=== PATIENT | male | born 1985 | race Caucasian/White ===

== ENCOUNTER 2016-04-26 23:51 | Emergency (ER) | payer MEDICAID ==
[2016-04-27 00:11] VITALS: BP 149/99
[2016-04-27] MEDS ORDERED: HYDROmorphone 1 MG/ML Syringe IM ONE (00:31)
--- NOTE | 2016-04-27 00:37 | EDM.PDOC ---
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 He was doing well but his last cat scan showed that the tumor had reoccurred and was back to the size that was originally resected. He is set to go back to [place] the to get set for radition therapy. He is experiencing fairly severe frontal headaches and nausea. He has phenergan and zoforan to use for the nausea. His primary care physian is Dr Tse. Timing/Duration: Reports: hour(s):, getting worse Location: Reports: frontal Quality: Reports: pounding Associated Symptoms: Reports: other (pt feels like there is alot of pressure in the head. ) - Related Data Allergies/ADRs: Allergies Allergy/AdvReac Type Severity Reaction Status Date / Time oxycodone AdvReac Nausea Verified 04/27/16 00:08 tramadol AdvReac Nausea Verified 04/27/16 00:08 Home Meds: Home Meds Ibuprofen [Motrin] 800 mg PO TID 01/30/16 [History] HYDROmorphone [Dilaudid] 2 mg PO Q6H PRN 03/04/16 [History] Ondansetron [Zofran ODT] 1 tab SL Q6H PRN 03/04/16 [History] Past Medical History HEENT History: Reports: Head Respiratory History: Reports: Pneumothorax Musculoskeletal History: Reports: Fracture Neurological History: Reports: Brain injury, Concussion, Head trauma, Migraines Other Neuro History: Craniopharyngioma resection 02/24/2016 - Infectious Disease History Infectious Disease History: Reports: Chicken pox - Past Surgical History Other Musculoskeletal Surgeries/Procedures:: left knee acl reconstuction Social & Family History - Family History Family Medical History: Noncontributory - Tobacco Use Smoking Status *Q: Never Smoker Second Hand Smoke Exposure: No - Caffeine Use Caffeine Use: Reports: Coffee, Energy drinks - Recreational Drug Use Recreational Drug Use: No ED ROS GENERAL - Review of Systems Review Of Systems: See Below Constitutional: Reports: no symptoms HEENT: Reports: No symptoms Respiratory: Reports: No Symptoms Cardiovascular: Reports: No symptoms Endocrine: Reports: no symptoms GI/Abdominal: Reports: Nausea, Other (pt states the zoforan works for him) : Reports: no symptoms Musculoskeletal: Reports: no symptoms Skin: Reports: no symptoms Neurological: Reports: Headache - Physical Exam Exam: See Below Text/Narrative:: pt has a severe headache. This is frontal in nature General Appearance: alert, anxious, moderate distress Ears: normal TMs Nose: normal inspection Throat/Mouth: Normal inspection Head Exam: atraumatic Neck: normal inspection Respiratory/Chest: no respiratory distress Cardiovascular: regular rate, rhythm Neuro Exam (Abbreviated): alert, oriented, normal cognition, other (pt is having a severe headache. ) Back Exam: normal inspection Extremities: normal inspection Psychiatric: anxious Course - Vital Signs Last Recorded V/S: Last Vital Signs Temp 36.6 C 04/27/16 00:10 Pulse 63 04/27/16 00:10 Resp 12 04/27/16 00:10 BP 149/99 H 04/27/16 00:10 Pulse Ox 99 04/27/16 00:10 - Orders/Labs/Meds Orders: Active Orders 24 hr Category Date Time Status HYDROmorphone [Dilaudid] Med 04/27/16 00:31 Once 1 mg IM ONETIME ONE Medication Orders Hydromorphone HCl (Dilaudid) 1 mg IM ONETIME ONE Stop: 04/27/16 00:32 Meds: Medications Generic Name Dose Route Start Last Admin Trade Name Pedro PRN Reason Stop Dose Admin Hydromorphone HCl 1 mg 04/27/16 00:31 Dilaudid IM 04/27/16 00:32 ONETIME ONE - Re-Assessments/Exams Free Text/Narrative Re-Assessment/Exam: 04/27/16 00:38 pt is out of his pain meds and is quite uncomfortable. He has an appt at [place] for May 09 to start radiation. Departure - Departure Time of Disposition: 00:39 Disposition: Home, Self-Care 01 Condition: fair Clinical Impression: Craniopharyngioma Forms: ED Department Discharge Care Plan Goals: appt with Dr Tse in the next 2 days., cont with zoforan and phenergan for nausea, dilaudid 2 mg 1 tab q8h as needed for severe headache # 8. Dr Tse should manage your pain when you are not at [place]. - My Orders Last 24 Hours: My Active Orders 04/27/16 00:31 HYDROmorphone [Dilaudid] 1 mg IM ONETIME ONE - Assessment/Plan Last 24 Hours: My Active Orders 04/27/16 00:31 HYDROmorphone [Dilaudid] 1 mg IM ONETIME ONE
== END 2016-04-27 01:02 | disposition home or self-care (01) ==
LOC: JP.ED 23:51
DX: D44.4 Neoplasm of uncertain behavior of craniopharyngeal duct (principal); G43.909 Migraine, unspecified, not intractable, without status migrainosus; Z88.5 Allergy status to narcotic agent; Z98.890 Other specified postprocedural states
CPT/HCPCS: 96372; 99284; J1170

== ENCOUNTER 2016-06-05 15:20 | Emergency (ER) | payer MEDICAID ==
[2016-06-05 15:49] VITALS: BP 141/56
[2016-06-05] MEDS ORDERED: HYDROmorphone 1 MG/ML Syringe IM ONE ×2 (15:51→16:46)
--- NOTE | 2016-06-05 16:10 | EDM.PDOC ---
[id number] 4d HEADACHE Time Seen by Provider: 06/05/16 15:45 Source: Reports: Patient History Limitations: Reports: No limitations - History of Present Illness INITIAL COMMENTS - FREE TEXT/NARRATIVE: 30-year-old male who is obtaining treatments for a craniopharyngioma is going to [place] tomorrow but has a headache that is not responding to his escape medications. No neurologic deficits. He usually comes in for an extra dose of Dilaudid IM for pain control. No nausea or vomiting. Location: Reports: frontal (Right eye), parietal, right Severity: Reports: moderate - Related Data Allergies/ADRs: Allergies Allergy/AdvReac Type Severity Reaction Status Date / Time oxycodone AdvReac Nausea Verified 06/05/16 15:34 tramadol AdvReac Nausea Verified 06/05/16 15:34 Home Meds: Home Meds NK [No Known Home Meds] 06/05/16 [History] Past Medical History HEENT History: Reports: Head Respiratory History: Reports: Pneumothorax Musculoskeletal History: Reports: Fracture Neurological History: Reports: Brain injury, Concussion, Head trauma, Migraines Other Neuro History: 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 Oncologic (Cancer) History: Reports: Brain - Infectious Disease History Infectious Disease History: Reports: Chicken pox - Past Surgical History Respiratory Surgical History: Reports: None Musculoskeletal Surgical History: Reports: Other (see below) Other Musculoskeletal Surgeries/Procedures:: left knee acl reconstuction Social & Family History - Family History Family Medical History: Noncontributory - Tobacco Use Smoking Status *Q: Never Smoker Second Hand Smoke Exposure: No - Caffeine Use Caffeine Use: Reports: Coffee, Energy drinks - Recreational Drug Use Recreational Drug Use: No ED ROS GENERAL - Review of Systems Review Of Systems: See Below Constitutional: Denies: fever, chills Respiratory: Denies: Shortness of Breath Cardiovascular: Denies: Chest pain GI/Abdominal: Denies: Nausea, Vomiting Skin: Reports: no symptoms Neurological: Reports: Other (No neurologic deficits but he has trouble sleeping ) - Physical Exam Exam: See Below Exam Limited By: No limitations General Appearance: alert, no apparent distress Eye Exam: bilateral eye: EOMI Neck: supple, non-tender Respiratory/Chest: no respiratory distress Neuro Exam (Abbreviated): alert, oriented, no motor/sensory deficits Psychiatric: normal affect, normal mood Skin Exam: Warm, Dry Course - Vital Signs Last Recorded V/S: Last Vital Signs Temp 98.3 F 06/05/16 15:47 Pulse 82 06/05/16 15:47 Resp 12 06/05/16 15:47 BP 141/56 H 06/05/16 15:47 Pulse Ox 99 06/05/16 15:47 - Orders/Labs/Meds Meds: Medications Discontinued Medications Generic Name Dose Route Start Last Admin Trade Name Pedro PRN Reason Stop Dose Admin Hydromorphone HCl 2 mg 06/05/16 15:51 06/05/16 15:57 Dilaudid IM 06/05/16 15:52 2 mg ONETIME ONE Administration Hydromorphone HCl 1 mg 06/05/16 16:46 06/05/16 16:58 Dilaudid IM 06/05/16 16:47 1 mg ONETIME ONE Administration - Re-Assessments/Exams Free Text/Narrative Re-Assessment/Exam: 06/05/16 16:10 Patient was given 2 mg of IM Dilaudid. 06/05/16 16:46 The patient had some moderate improvement with the Dilaudid, was given 1 additional milligram IM and discharged to followup tomorrow as planned. Departure - Departure Time of Disposition: 17:23 Disposition: Home, Self-Care 01 Condition: good Clinical Impression: Craniopharyngioma, Headache, chronic daily Instructions: Recurrent Migraine Headache Referrals: Geovanny Tse Sr, MD [Primary Care Provider] - Forms: ED Department Discharge Care Plan Goals: Continue your current medications and recheck as scheduled.
== END 2016-06-05 17:24 | disposition home or self-care (01) ==
LOC: JP.ED 15:20
DX: R51 Headache (principal); G89.29 Other chronic pain; D44.4 Neoplasm of uncertain behavior of craniopharyngeal duct; Z88.5 Allergy status to narcotic agent; Z88.8 Allergy status to other drugs, medicaments and biological substances; Z98.890 Other specified postprocedural states
CPT/HCPCS: 96372; 99284; J1170

== ENCOUNTER 2016-07-02 13:38 | Emergency (ER) | payer MEDICAID ==
[2016-07-02 13:57] VITALS: BP 110/66
[2016-07-02] MEDS ORDERED: HYDROmorphone 1 MG/ML Syringe IM ONE (14:30)
--- NOTE | 2016-07-02 14:53 | EDM.PDOC ---
ED HPI GENERAL MEDICAL PROBLEM - General Chief Complaint: Headache Stated Complaint: SEVERE HEADACHE,HISTORY OF TUMOR Time Seen by Provider: 07/02/16 14:15 Source of Information: Reports: Patient History Limitations: Reports: No Limitations - History of Present Illness INITIAL COMMENTS - FREE TEXT/NARRATIVE: This patient comes in for the headache complaint he has a history of a craniopharyngioma and had surgical resection back in February but this thing has grown back. He finished 6 weeks of radiation therapy yesterday. Normally for his headaches he takes oral Dilaudid however occasionally his headaches are severe and he can't control them with oral a lot of so he comes to the emergency department. In the past he's gotten 2 mg of Dilaudid IM and that has helped her he the headache today is a high in the right eye in a similar to his past headaches. He denies nausea today - Related Data Allergies Allergy/AdvReac Type Severity Reaction Status Date / Time oxycodone AdvReac Nausea Verified 06/05/16 15:34 tramadol AdvReac Nausea Verified 06/05/16 15:34 Home Meds: Home Meds HYDROmorphone HCl [Dilaudid] 1 tab PO Q4HR PRN 07/02/16 [History] Past Medical History HEENT History: Reports: Head Respiratory History: Reports: Pneumothorax Musculoskeletal History: Reports: Fracture Neurological History: Reports: Brain Injury, Concussion, Head Trauma, Migraines Other Neuro History: 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 Oncologic (Cancer) History: Reports: Brain - Infectious Disease History Infectious Disease History: Reports: Chicken Pox - Past Surgical History Respiratory Surgical History: Reports: None Musculoskeletal Surgical History: Reports: Other (See Below) Social & Family History - Family History Family Medical History: Noncontributory - Tobacco Use Smoking Status *Q: Never Smoker Second Hand Smoke Exposure: No - Caffeine Use Caffeine Use: Reports: Coffee, Energy Drinks - Recreational Drug Use Recreational Drug Use: No ED ROS GENERAL - Review of Systems Review Of Systems: ROS reveals no pertinent complaints other than HPI. - Physical Exam Exam: See Below Exam Limited By: No Limitations General Appearance: Alert, WD/WN, Mild Distress Eye Exam: Bilateral Eye: EOMI, PERRL Head Exam: Other (There's a well-healed scar to the right frontal parietal area) Neck: Full Range of Motion Neuro Exam (Abbreviated): Alert, Oriented, CN II-XII Intact, No Motor/Sensory Deficits Psychiatric: Normal Affect, Normal Mood Skin Exam: Intact Course - Vital Signs Last Recorded V/S: Last Vital Signs Temp 36.9 C 07/02/16 13:55 Pulse 77 07/02/16 13:55 Resp 14 07/02/16 13:55 BP 110/66 07/02/16 13:55 Pulse Ox 98 07/02/16 13:55 - Orders/Labs/Meds Meds: Medications Discontinued Medications Generic Name Dose Route Start Last Admin Trade Name Pedro PRN Reason Stop Dose Admin Hydromorphone HCl 2 mg 07/02/16 14:30 07/02/16 14:38 Dilaudid IM 07/02/16 14:31 2 mg ONETIME ONE Administration - Re-Assessments/Exams Free Text/Narrative Re-Assessment/Exam: 07/02/16 14:51 The patient received Dilaudid 2 mg IM. He's feels like he's ready for discharge now and painless relieved. Departure - Departure Time of Disposition: 14:52 Disposition: Home, Self-Care 01 Condition: fair Clinical Impression: Headache due to intracranial disease - Discharge Information Forms: ED Department Discharge Additional Instructions: Continue your usual medications. Return to the ER if needed.
== END 2016-07-02 15:09 | disposition home or self-care (01) ==
LOC: JP.ED 13:38
DX: G89.3 Neoplasm related pain (acute) (chronic) (principal); D44.4 Neoplasm of uncertain behavior of craniopharyngeal duct; R51 Headache; Z88.8 Allergy status to other drugs, medicaments and biological substances
CPT/HCPCS: 96372; 99284; J1170

== ENCOUNTER 2016-07-03 01:58 | Emergency (ER) | payer MEDICAID ==
--- NOTE | 2016-07-03 02:26 | EDM.PDOC ---
[id number] 4d SEVERE HEADACHE Time Seen by Provider: 07/03/16 02:22 Source of Information: Reports: Patient History Limitations: Reports: No Limitations - History of Present Illness INITIAL COMMENTS - FREE TEXT/NARRATIVE: Pt has a known brain tumor that was resecte and now is back . He has very severe headaches and uses dilaudid orally but there are times that he is not able to get it under control. He has also been quite nauseated. Onset: Gradual Duration: Week(s):, Waxing/Waning Location: Reports: Head Associated Symptoms: Reports: Nausea/Vomiting headache Pain Score (Numeric/FACES): 10 - Related Data Allergies Allergy/AdvReac Type Severity Reaction Status Date / Time oxycodone AdvReac Nausea Verified 07/03/16 02:22 tramadol AdvReac Nausea Verified 07/03/16 02:22 Home Meds: Home Meds HYDROmorphone HCl [Dilaudid] 8 mg PO Q8H PRN 07/02/16 [History] Ondansetron [Zofran ODT] 4 mg PO Q6H PRN 07/03/16 [History] Past Medical History HEENT History: Reports: Head Respiratory History: Reports: Pneumothorax Musculoskeletal History: Reports: Fracture Neurological History: Reports: Brain Injury, Concussion, Head Trauma, Migraines Other Neuro History: 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 Oncologic (Cancer) History: Reports: Brain - Infectious Disease History Infectious Disease History: Reports: Chicken Pox - Past Surgical History Respiratory Surgical History: Reports: None Musculoskeletal Surgical History: Reports: Other (See Below) Social & Family History - Family History Family Medical History: Noncontributory - Tobacco Use Smoking Status *Q: Never Smoker Second Hand Smoke Exposure: No - Caffeine Use Caffeine Use: Reports: Coffee, Energy Drinks - Recreational Drug Use Recreational Drug Use: No ED ROS GENERAL - Review of Systems Review Of Systems: See Below Constitutional: Reports: No Symptoms HEENT: Reports: No Symptoms Respiratory: Reports: No Symptoms Cardiovascular: Reports: No Symptoms Endocrine: Reports: No Symptoms GI/Abdominal: Reports: Vomiting : Reports: No Symptoms Musculoskeletal: Reports: No Symptoms Skin: Reports: No Symptoms Neurological: Reports: Other (pt has a severe headache. ) Psychiatric: Reports: Hallucinations Hematologic/Lymphatic: Reports: No Symptoms - Physical Exam Exam: See Below General Appearance: Severe Distress, Thin Ears: Normal TMs Nose: Normal Inspection Throat/Mouth: Normal Inspection Head Exam: Atraumatic Neck: Normal Inspection Respiratory/Chest: No Respiratory Distress Cardiovascular: Regular Rate, Rhythm Course - Vital Signs Last Recorded V/S: Last Vital Signs Temp 36.8 C 07/03/16 02:35 Pulse 58 L 07/03/16 02:35 Resp 20 07/03/16 02:35 BP 140/85 07/03/16 02:35 Pulse Ox 98 07/03/16 02:35 - Orders/Labs/Meds Meds: Medications Discontinued Medications Generic Name Dose Route Start Last Admin Trade Name Freq PRN Reason Stop Dose Admin Hydromorphone HCl 1 mg 07/03/16 02:37 07/03/16 02:48 Dilaudid IVPUSH 07/03/16 02:38 1 mg ONETIME ONE Administration Hydromorphone HCl 1 mg 07/03/16 02:48 07/03/16 03:23 Dilaudid IVPUSH 07/03/16 02:49 1 mg ONETIME ONE Administration Hydromorphone HCl 1 mg 07/03/16 03:55 07/03/16 04:05 Dilaudid IVPUSH 07/03/16 03:56 1 mg ONETIME ONE Administration Hydromorphone HCl 0.5 mg 07/03/16 04:42 07/03/16 04:56 Dilaudid IVPUSH 07/03/16 04:43 0.5 mg ONETIME ONE Administration Hydromorphone HCl 0.5 mg 07/03/16 05:40 07/03/16 05:51 Dilaudid IVPUSH 07/03/16 05:41 0.5 mg ONETIME ONE Administration Lorazepam 0.5 mg 07/03/16 04:40 07/03/16 04:49 Ativan IVPUSH 07/03/16 04:41 0.5 mg ONETIME ONE Administration Lorazepam 0.5 mg 07/03/16 05:39 07/03/16 05:51 Ativan IVPUSH 07/03/16 05:40 0.5 mg ONETIME ONE Administration Ondansetron HCl 4 mg 07/03/16 02:37 07/03/16 02:44 Zofran IVPUSH 07/03/16 02:38 4 mg ONETIME ONE Administration - Re-Assessments/Exams Free Text/Narrative Re-Assessment/Exam: 07/03/16 02:38 pt has just finished radiation at [facility] for a brain tumor. He does get headaches that the oral meds don,t control. . He started vomiting this pm. 07/03/16 02:57 He was given a total of 2 mg of dilaudid. 07/03/16 05:41 pt is hving trouble getting relief today. He is on such a high dose of oral dilaudid 8 mg every 4-6 hours. It would be good if we had some records and reccommendations from [facility] regarding meds to use for pain relief. 07/04/16 07:32 Departure - Departure Time of Disposition: 06:30 Disposition: Home, Self-Care 01 Condition: fair Clinical Impression: Headache, History of brain tumor - Discharge Information Instructions: Recurrent Migraine Headache Referrals: Geovanny Tse Sr, MD [Primary Care Provider] - Forms: ED Department Discharge Care Plan Goals: push fluids, cont same meds.
[2016-07-03 02:36] VITALS: BP 140/85
[2016-07-03] MEDS ORDERED: Ondansetron 4 MG/2 ML SDV IVPUSH ONE (02:37)
[2016-07-03] MEDS ORDERED: HYDROmorphone 1 MG/ML Syringe IVPUSH ONE ×3 (02:37→03:55)
[2016-07-03] MEDS ORDERED: LORazepam 2 MG/ML MDV IVPUSH ONE ×2 (04:40→05:39)
[2016-07-03] MEDS ORDERED: HYDROmorphone 0.5 MG/0.5 ML Syringe IVPUSH ONE ×2 (04:42→05:40)
== END 2016-07-03 06:30 | disposition home or self-care (01) ==
LOC: JP.ED 01:58
DX: G89.3 Neoplasm related pain (acute) (chronic) (principal); R51 Headache; D44.4 Neoplasm of uncertain behavior of craniopharyngeal duct; Z88.8 Allergy status to other drugs, medicaments and biological substances
CPT/HCPCS: 96374; 96375; 96376; 99284; J1170; J2060; J2405

== ENCOUNTER 2016-07-03 22:46 | Emergency (ER) | payer MEDICAID ==
[2016-07-03 23:05] VITALS: BP 128/72
[2016-07-03] MEDS ORDERED: HYDROmorphone 1 MG/ML Syringe IVPUSH ONE (23:19)
[2016-07-03] MEDS ORDERED: LORazepam 2 MG/ML MDV IVPUSH ONE (23:19)
--- NOTE | 2016-07-03 23:22 | EDM.PDOC ---
[id number] 4d HEADACHE Time Seen by Provider: 07/03/16 23:05 Source of Information: Reports: Patient History Limitations: Reports: No Limitations - History of Present Illness INITIAL COMMENTS - FREE TEXT/NARRATIVE: 31-year-old male who just finished 6 weeks of radiation therapy for her recurring brain tumor comes in for headache control. His headache actually broke and he was pain-free at 2 PM this afternoon but by 6:00 it was back to very intense and he was unable to take his oral Dilaudid because of nausea. Severity: Severe Associated Symptoms: Reports: Nausea/Vomiting. Denies: Confusion, Fever/Chills , Weakness Frontal Headache Pain Score (Numeric/FACES): 10 - Related Data Allergies Allergy/AdvReac Type Severity Reaction Status Date / Time oxycodone AdvReac Nausea Verified 07/03/16 02:22 tramadol AdvReac Nausea Verified 07/03/16 02:22 Home Meds: Home Meds HYDROmorphone HCl [Dilaudid] 8 mg PO Q8H PRN 07/02/16 [History] Ondansetron [Zofran ODT] 4 mg PO Q6H PRN 07/03/16 [History] Past Medical History HEENT History: Reports: Head Respiratory History: Reports: Pneumothorax Musculoskeletal History: Reports: Fracture Neurological History: Reports: Brain Injury, Concussion, Head Trauma, Migraines Other Neuro History: 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 Oncologic (Cancer) History: Reports: Brain Other Oncologic History: Finished 6 weeks of radiation therapy for brain cancer on monday07/01/16 - Infectious Disease History Infectious Disease History: Reports: Chicken Pox - Past Surgical History Respiratory Surgical History: Reports: None Musculoskeletal Surgical History: Reports: Other (See Below) Social & Family History - Family History Family Medical History: Noncontributory - Tobacco Use Smoking Status *Q: Never Smoker Second Hand Smoke Exposure: No - Caffeine Use Caffeine Use: Reports: Coffee, Energy Drinks - Recreational Drug Use Recreational Drug Use: No ED ROS GENERAL - Review of Systems Review Of Systems: See Below Constitutional: Denies: Fever, Chills Respiratory: Denies: Shortness of Breath Cardiovascular: Denies: Chest Pain GI/Abdominal: Reports: Nausea, Vomiting Skin: Reports: No Symptoms Psychiatric: Reports: No Symptoms - Physical Exam Exam: See Below Exam Limited By: No Limitations General Appearance: Alert, Mild Distress (Looks uncomfortable but not significantly distressed) Respiratory/Chest: No Respiratory Distress Neuro Exam (Abbreviated): Alert, Oriented, No Motor/Sensory Deficits Psychiatric: Normal Affect, Normal Mood Skin Exam: Warm, Dry Course - Vital Signs Last Recorded V/S: Last Vital Signs Temp 98.2 F 07/03/16 23:01 Pulse 63 07/03/16 23:01 Resp 17 07/03/16 23:01 BP 128/72 07/03/16 23:01 Pulse Ox 98 07/03/16 23:01 - Orders/Labs/Meds Orders: Active Orders 24 hr Category Date Time Status Saline Lock Insert [OM.PC] Routine Oth 07/03/16 23:20 Ordered Meds: Medications Discontinued Medications Generic Name Dose Route Start Last Admin Trade Name Freq PRN Reason Stop Dose Admin Hydromorphone HCl 2 mg 07/03/16 23:19 07/03/16 23:37 Dilaudid IVPUSH 07/03/16 23:20 2 mg ONETIME ONE Administration Hydromorphone HCl 2 mg 07/04/16 00:17 07/04/16 00:37 Dilaudid IVPUSH 07/04/16 00:18 2 mg ONETIME ONE Administration Ketorolac Tromethamine 30 mg 07/04/16 00:17 07/04/16 00:34 Toradol IVPUSH 07/04/16 00:18 30 mg ONETIME ONE Administration Lorazepam 1 mg 07/03/16 23:19 07/03/16 23:34 Ativan IVPUSH 07/03/16 23:20 1 mg ONETIME ONE Administration Sodium Chloride 10 ml 07/03/16 23:20 07/04/16 00:40 Saline Flush FLUSH 10 ml ASDIRECTED PRN Administration Keep Vein Open - Re-Assessments/Exams Free Text/Narrative Re-Assessment/Exam: 07/04/16 00:20 This patient is already taking 8 mg of Dilaudid orally every 6 hours but is unable to do so today because of the nausea and vomiting. Initially was given 2 mg of Dilaudid IV along with 1 mg of Ativan. 30 minutes later he said the headache was still an "8" but he looked very comfortable, switching channels on the TV and doing things on his telephone. I did give him 2 mg more of Dilaudid IV along with 30 of Toradol I told him I was uncomfortable giving him any more medications and he needs to resume his oral medications as prescribed. Departure - Departure Time of Disposition: 00:53 Disposition: Home, Self-Care 01 Condition: fair Clinical Impression: Headache due to intracranial disease - Discharge Information Instructions: Migraine Headache, [id number] Referrals: Geovanny Tse Sr, MD [Primary Care Provider] - Forms: ED Department Discharge Care Plan Goals: Rest tonight, resume your regular oral medications tomorrow as prescribed. - My Orders Last 24 Hours: My Active Orders 07/03/16 23:20 Saline Lock Insert [OM.PC] Routine - Assessment/Plan Last 24 Hours: My Active Orders 07/03/16 23:20 Saline Lock Insert [OM.PC] Routine
[2016-07-03] MEDS: Sodium Chloride 0.9% 10 ML Syringe FLUSH PRN (23:40)
[2016-07-04] MEDS ORDERED: HYDROmorphone 1 MG/ML Syringe IVPUSH ONE (00:17)
[2016-07-04] MEDS ORDERED: Ketorolac 30 MG/ML SDV IVPUSH ONE (00:17)
[2016-07-04] MEDS: Sodium Chloride 0.9% 10 ML Syringe FLUSH PRN (00:40)
== END 2016-07-04 00:55 | disposition home or self-care (01) ==
LOC: JP.ED 22:46
DX: R51 Headache (principal); Z85.841 Personal history of malignant neoplasm of brain; Z88.5 Allergy status to narcotic agent; Z88.8 Allergy status to other drugs, medicaments and biological substances
CPT/HCPCS: 96374; 96375; 96376; 99284; J1170; J1885; J2060; J7050

== ENCOUNTER 2016-07-11 14:37 | Emergency (ER) | payer MEDICAID ==
[2016-07-11] MEDS ORDERED: Sodium Chloride 0.9% 10 ML Syringe FLUSH PRN (16:38)
[2016-07-11] MEDS ORDERED: HYDROmorphone 1 MG/ML Syringe IVPUSH ONE ×2 (16:39→18:21)
[2016-07-11] MEDS ORDERED: Sodium Chloride 0.9% 1,000 ML IV ONE (16:39)
[2016-07-11] MEDS ORDERED: LORazepam 2 MG/ML MDV IVPUSH ONE (16:40)
[2016-07-11 18:12] VITALS: BP 111/76
[2016-07-11] MEDS ORDERED: Ketorolac 30 MG/ML SDV IVPUSH ONE (18:19)
[2016-07-11] MEDS ORDERED: diphenhydrAMINE 50 MG/ML SDV IVPUSH ONE (18:20)
[2016-07-11] MEDS ORDERED: Metoclopramide 10 MG/2 ML SDV IVPUSH ONE (18:20)
[2016-07-11] MEDS ORDERED: Dexamethasone 4 MG/ML SDV IVPUSH ONE (18:20)
--- NOTE | 2016-07-11 19:57 | EDM.PDOC ---
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 who presents to the ED today with acute on chronic headache that has not responded to his oral dilaudid at home. Patient denies any nausea/fever/neck pain. Patient reports photophobia. Onset: Today Duration: Hour(s): (4) Headache Pain Score (Numeric/FACES): 9 - Related Data Allergies Allergy/AdvReac Type Severity Reaction Status Date / Time oxycodone AdvReac Nausea Verified 07/11/16 16:12 tramadol AdvReac Nausea Verified 07/11/16 16:12 Home Meds: Home Meds HYDROmorphone HCl [Dilaudid] 8 mg PO Q8H PRN 07/02/16 [History] Ondansetron [Zofran ODT] 4 mg PO Q6H PRN 07/03/16 [History] Past Medical History HEENT History: Reports: Head Respiratory History: Reports: Pneumothorax Other Respiratory History: bilateral Musculoskeletal History: Reports: Fracture Neurological History: Reports: Brain Injury, Concussion, Head Trauma, Migraines Other Neuro History: 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 Immunologic History: Reports: Immunosuppression Other Immunologic History: radiation therapy Oncologic (Cancer) History: Reports: Brain Other Oncologic History: Finished 6 weeks of radiation therapy for brain cancer on monday07/01/16 - Infectious Disease History Infectious Disease History: Reports: Chicken Pox - Past Surgical History Head Surgeries/Procedures: Reports: Craniotomy HEENT Surgical History: Reports: None Respiratory Surgical History: Reports: None Musculoskeletal Surgical History: Reports: Other (See Below) Other Musculoskeletal Surgeries/Procedures:: left knee Oncologic Surgical History: Reports: Other (See Below) Other Oncologic Surgeries/Procedures: radiation therapy done Dermatological Surgical History: Reports: None Social & Family History - Family History Family Medical History: Noncontributory - Tobacco Use Smoking Status *Q: Former Smoker Years of Tobacco use: 1 Packs/Tins Daily: 0.5 Used Tobacco, but Quit: Yes Month Tobacco Last Used: september Second Hand Smoke Exposure: No - Caffeine Use Caffeine Use: Reports: Coffee, Energy Drinks, Soda - Recreational Drug Use Recreational Drug Use: No ED ROS GENERAL - Review of Systems Review Of Systems: ROS reveals no pertinent complaints other than HPI. - Physical Exam Exam: See Below Exam Limited By: No Limitations General Appearance: Alert, WD/WN, No Apparent Distress Eye Exam: Bilateral Eye: EOMI, PERRL Ears: Normal External Exam, Normal TMs Nose: Normal Inspection Throat/Mouth: Normal Oropharynx Head Exam: Atraumatic Neck: Normal Inspection, Supple, Non-Tender, Full Range of Motion Respiratory/Chest: No Respiratory Distress, Lungs Clear Cardiovascular: Normal Peripheral Pulses, Regular Rate, Rhythm, No Murmur. 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 Patient c/o mild photophobia but denies any other associated symptoms. Patient on exam is in no acute distress. He is conversing normally, he shows no signs of discomfort. Patient exhibits no signs of neuro/focal deficits, no signs of meningismus. Patient is already on a large dose of Dilaudid, 8 mg Q8H PRN at home. He has been now frequently presenting to the ED with this acute on chronic headache presentation where he has been receiving IV Dilaudid and Ativan. PIV established, patient given 2 mg of Dilaudid here in the ED as well as 1 mg of IV Ativan. He reported his pain went from an 8/10 to a 6/10. Patient was given an additional 2 mg of Dilaudid as well as 5 mg IV Reglan, 25 mg IV Benadryl, 10 mg of IV Decadron and 30 mg of IV Toradol which patient continues to rate his pain a 6/10. While patient was here, I discussed his case with ER Dr. Arrieta as well as Dr. Tse, patient's primary doctor. There is clearly concern regarding patient's narcotic use. Patient is on a rather large dose of Dilaudid to begin with and now has been presenting to the ED more frequently for additional opioid medication. Dr. Tse has been unaware of patient's ED visits. He reported that patient had a positive urine drug screen for marijuana last week. He has been in contact with patient's oncologist and neurologist regarding his pain medication. I discussed my concern with patient who continues to request more dilaudid to bring his pain down to a 4/10. I informed patient I was not comfortable with this and patient could continue his medications as prescribed at home. Patient was instructed to call Dr. Tse tomorrow to discuss his medication regime and ED visit today. Patient left in stable condition. Last Recorded V/S: Last Vital Signs Temp 37.1 C 07/11/16 16:11 Pulse 77 07/11/16 18:11 Resp 20 07/11/16 18:11 BP 111/76 07/11/16 18:11 Pulse Ox 100 07/11/16 18:11 - Orders/Labs/Meds Orders: Active Orders 24 hr Category Date Time Status Peripheral IV Care [RC] . DIRECTED Care 07/11/16 16:38 Active Sodium Chloride 0.9% [Saline Flush] Med 07/11/16 16:38 Active 10 ml FLUSH ASDIRECTED PRN Peripheral IV Insertion Adult [OM.PC] Routine Oth 07/11/16 16:38 Ordered Medication Orders Sodium Chloride (Saline Flush) 10 ml FLUSH ASDIRECTED PRN PRN Reason: Keep Vein Open Meds: Medications Generic Name Dose Route Start Last Admin Trade Name Freq PRN Reason Stop Dose Admin Sodium Chloride 10 ml 07/11/16 16:38 Saline Flush FLUSH ASDIRECTED PRN Keep Vein Open Discontinued Medications Generic Name Dose Route Start Last Admin Trade Name Freq PRN Reason Stop Dose Admin Dexamethasone 10 mg 07/11/16 18:20 07/11/16 18:35 Dexamethasone IVPUSH 07/11/16 18:21 10 mg ONETIME ONE Administration Diphenhydramine HCl 25 mg 07/11/16 18:20 07/11/16 18:34 Benadryl IVPUSH 07/11/16 18:21 25 mg ONETIME ONE Administration Hydromorphone HCl 2 mg 07/11/16 16:39 07/11/16 17:13 Dilaudid IVPUSH 07/11/16 16:40 2 mg ONETIME ONE Administration Hydromorphone HCl 1 mg 07/11/16 18:21 07/11/16 18:34 Dilaudid IVPUSH 07/11/16 18:22 1 mg ONETIME ONE Administration Sodium Chloride 1,000 mls @ 999 mls/hr 07/11/16 16:39 07/11/16 17:14 Normal Saline IV 07/11/16 17:39 999 mls/hr .BOLUS ONE Administration Ketorolac Tromethamine 30 mg 07/11/16 18:19 07/11/16 18:35 Toradol IVPUSH 07/11/16 18:20 30 mg ONETIME ONE Administration Lorazepam 2 mg 07/11/16 16:40 07/11/16 17:13 Ativan IVPUSH 07/11/16 16:41 2 mg ONETIME ONE Administration Metoclopramide HCl 5 mg 07/11/16 18:20 07/11/16 18:33 Reglan IVPUSH 07/11/16 18:21 5 mg ONETIME ONE Administration Departure - Departure Time of Disposition: 20:30 Disposition: Home, Self-Care 01 Condition: good Clinical Impression: History of brain tumor, Craniopharyngioma Headache Qualifiers: Headache type: unspecified Headache chronicity pattern: acute headache Intractability: intractable Qualified Code(s): R51 - Headache - Discharge Information Instructions: Migraine Headache Referrals: Geovanny Tse Sr, MD [Primary Care Provider] - Forms: ED Department Discharge Additional Instructions: Johny, please call Dr. Tse in the morning to discuss some better pain options for these headache exacerbations that keep occurring. It was nice meeting you and good luck with everything. - My Orders Last 24 Hours: My Active Orders 07/11/16 16:38 Peripheral IV Care [RC] . DIRECTED Sodium Chloride 0.9% [Saline Flush] 10 ml FLUSH ASDIRECTED PRN Peripheral IV Insertion Adult [OM.PC] Routine - Assessment/Plan Last 24 Hours: My Active Orders 07/11/16 16:38 Peripheral IV Care [RC] . DIRECTED Sodium Chloride 0.9% [Saline Flush] 10 ml FLUSH ASDIRECTED PRN Peripheral IV Insertion Adult [OM.PC] Routine
== END 2016-07-11 20:15 | disposition home or self-care (01) ==
LOC: JP.ED 14:37
DX: R51 Headache (principal); D44.4 Neoplasm of uncertain behavior of craniopharyngeal duct; Z98.890 Other specified postprocedural states; Z87.891 Personal history of nicotine dependence; Z88.5 Allergy status to narcotic agent
CPT/HCPCS: 96361; 96374; 96375; 96376; 99284; J1100; J1170; J1200; J1885; J2060; J2765; J7040

== ENCOUNTER 2016-07-12 19:02 | Emergency (ER) | payer MEDICAID ==
[2016-07-12] MEDS ORDERED: HYDROmorphone 1 MG/ML Syringe IVPUSH ONE ×2 (19:52→21:01)
[2016-07-12] MEDS ORDERED: Prochlorperazine 10 MG/2 ML SDV IVPUSH ONE (19:52)
[2016-07-12] MEDS ORDERED: Sodium Chloride 0.9% 10 ML Syringe FLUSH PRN (19:52)
[2016-07-12] MEDS ORDERED: diphenhydrAMINE 50 MG/ML SDV IVPUSH ONE (19:52)
--- NOTE | 2016-07-12 19:55 | EDM.PDOC ---
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 He denies any nausea vomiting shortness of breath chest pain he is scheduled for an MRI in the morning Headache Pain Score (Numeric/FACES): 8 - Related Data Allergies Allergy/AdvReac Type Severity Reaction Status Date / Time oxycodone AdvReac Nausea Verified 07/11/16 16:12 tramadol AdvReac Nausea Verified 07/11/16 16:12 Home Meds: Home Meds HYDROmorphone HCl [Dilaudid] 8 mg PO Q8H PRN 07/02/16 [History] Ondansetron [Zofran ODT] 4 mg PO Q6H PRN 07/03/16 [History] Past Medical History HEENT History: Reports: Head Respiratory History: Reports: Pneumothorax Other Respiratory History: bilateral Musculoskeletal History: Reports: Fracture Neurological History: Reports: Brain Injury, Concussion, Head Trauma, Migraines Other Neuro History: 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 Immunologic History: Reports: Immunosuppression Other Immunologic History: radiation therapy Oncologic (Cancer) History: Reports: Brain Other Oncologic History: Finished 6 weeks of radiation therapy for brain cancer on monday07/01/16 - Infectious Disease History Infectious Disease History: Reports: Chicken Pox - Past Surgical History Head Surgeries/Procedures: Reports: Craniotomy HEENT Surgical History: Reports: None Respiratory Surgical History: Reports: None Musculoskeletal Surgical History: Reports: Other (See Below) Other Musculoskeletal Surgeries/Procedures:: left knee Oncologic Surgical History: Reports: Other (See Below) Other Oncologic Surgeries/Procedures: radiation therapy done Dermatological Surgical History: Reports: None Social & Family History - Family History Family Medical History: Noncontributory - Tobacco Use Smoking Status *Q: Never Smoker Years of Tobacco use: 1 Packs/Tins Daily: 0.5 Used Tobacco, but Quit: Yes Month Tobacco Last Used: september Second Hand Smoke Exposure: No - Caffeine Use Caffeine Use: Reports: Coffee, Energy Drinks - Recreational Drug Use Recreational Drug Use: No ED ROS GENERAL - Review of Systems Review Of Systems: See Below Constitutional: Reports: No Symptoms HEENT: Reports: Other (eye pain) Respiratory: Reports: No Symptoms Cardiovascular: Reports: No Symptoms GI/Abdominal: Reports: No Symptoms : Reports: No Symptoms Musculoskeletal: Reports: No Symptoms Neurological: Reports: Headache ED EXAM, NEURO - Physical Exam Exam: See Below Exam Limited By: No Limitations General Appearance: Alert, WD/WN, No Apparent Distress Eye Exam: Bilateral Eye: EOMI, Normal Fundi, Normal Inspection Respiratory/Chest: No Respiratory Distress, Lungs Clear, Normal Breath Sounds, No Accessory Muscle Use Cardiovascular: Regular Rate, Rhythm, No Murmur Course - Vital Signs Last Recorded V/S: Last Vital Signs Temp 99.0 F 07/12/16 19:25 Pulse 109 H 07/12/16 19:25 Resp 18 07/12/16 19:25 BP 144/74 H 07/12/16 19:25 Pulse Ox 98 07/12/16 19:25 - Orders/Labs/Meds Orders: Active Orders 24 hr Category Date Time Status Peripheral IV Care [RC] . DIRECTED Care 07/12/16 19:52 Active Sodium Chloride 0.9% [Normal Saline] 1,000 ml Med 07/12/16 20:00 Active IV ASDIRECTED Sodium Chloride 0.9% [Saline Flush] Med 07/12/16 19:52 Active 10 ml FLUSH ASDIRECTED PRN Peripheral IV Insertion Adult [OM.PC] Urgent Oth 07/12/16 19:51 Ordered Medication Orders Sodium Chloride (Normal Saline) 1,000 mls @ 500 mls/hr IV ASDIRECTED JADEN Last Admin: 07/12/16 20:04 Dose: 500 mls/hr Sodium Chloride (Saline Flush) 10 ml FLUSH ASDIRECTED PRN PRN Reason: Keep Vein Open Last Admin: 07/12/16 20:04 Dose: 10 ml Meds: Medications Generic Name Dose Route Start Last Admin Trade Name Freq PRN Reason Stop Dose Admin Sodium Chloride 1,000 mls @ 500 mls/hr 07/12/16 20:00 07/12/16 20:04 Normal Saline IV 500 mls/hr ASDIRECTED JADEN Administration Sodium Chloride 10 ml 07/12/16 19:52 07/12/16 20:04 Saline Flush FLUSH 10 ml ASDIRECTED PRN Administration Keep Vein Open Discontinued Medications Generic Name Dose Route Start Last Admin Trade Name Freq PRN Reason Stop Dose Admin Diphenhydramine HCl 25 mg 07/12/16 19:52 07/12/16 20:07 Benadryl IVPUSH 07/12/16 19:53 25 mg ONETIME ONE Administration Fentanyl 100 mcg 07/12/16 21:56 07/12/16 22:06 Sublimaze IVPUSH 07/12/16 21:57 100 mcg ONETIME ONE Administration Hydromorphone HCl 1 mg 07/12/16 19:52 07/12/16 20:05 Dilaudid IVPUSH 07/12/16 19:53 1 mg ONETIME ONE Administration Hydromorphone HCl 1 mg 07/12/16 21:01 07/12/16 21:16 Dilaudid IVPUSH 07/12/16 21:02 1 mg ONETIME ONE Administration Prochlorperazine Edisylate 5 mg 07/12/16 19:52 07/12/16 20:09 Compazine IVPUSH 07/12/16 19:53 5 mg ONETIME ONE Administration Departure - Departure Time of Disposition: 22:42 Disposition: Home, Self-Care 01 Condition: good Clinical Impression: Craniopharyngioma Headache Qualifiers: Headache type: unspecified Headache chronicity pattern: acute headache Intractability: intractable Qualified Code(s): R51 - Headache - Discharge Information Forms: ED Department Discharge Additional Instructions: Resume your regular medications, please followup with your primary care next 3- 5 days for reevaluation, please followup with your MRI in the morning - My Orders Last 24 Hours: My Active Orders 07/12/16 19:51 Peripheral IV Insertion Adult [OM.PC] Urgent 07/12/16 19:52 Peripheral IV Care [RC] . DIRECTED Sodium Chloride 0.9% [Saline Flush] 10 ml FLUSH ASDIRECTED PRN 07/12/16 20:00 Sodium Chloride 0.9% [Normal Saline] 1,000 ml IV ASDIRECTED - Assessment/Plan Last 24 Hours: My Active Orders 07/12/16 19:51 Peripheral IV Insertion Adult [OM.PC] Urgent 07/12/16 19:52 Peripheral IV Care [RC] . 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 This note was dictated using [employer] voice recognition software please call with any questions.
[2016-07-12] MEDS ORDERED: Sodium Chloride 0.9% 1,000 ML IV SCH (20:00)
[2016-07-12] MEDS ORDERED: fentaNYL 100 MCG/2 ML SDV IVPUSH ONE (21:56)
[2016-07-12 22:49] VITALS: BP 120/73
== END 2016-07-12 23:00 | disposition home or self-care (01) ==
LOC: JP.ED 19:02
DX: R51 Headache (principal); D44.4 Neoplasm of uncertain behavior of craniopharyngeal duct; Z88.5 Allergy status to narcotic agent; Z88.8 Allergy status to other drugs, medicaments and biological substances; Z98.890 Other specified postprocedural states
CPT/HCPCS: 96361; 96374; 96375; 99284; J0780; J1170; J1200; J3010; J7040; J7050

== ENCOUNTER 2016-07-13 14:42 | Emergency (ER) | payer MEDICAID ==
[2016-07-13 15:18] VITALS: BP 124/82
[2016-07-13] MEDS ORDERED: HYDROmorphone 1 MG/ML Syringe IVPUSH ONE (15:34)
--- NOTE | 2016-07-13 15:40 | EDM.PDOC ---
[id number] HEADACHE Time Seen by Provider: 07/13/16 15:30 Source of Information: Reports: Patient, Provider History Limitations: Reports: No Limitations - History of Present Illness INITIAL COMMENTS - FREE TEXT/NARRATIVE: 31-year-old male is on the schedule to obtain an MRI of his head at 3:45 this afternoon, came in for pain control prior to the MRI. He takes 8 mg of Dilaudid every 8 hours, he is 2 hours away from his next dose. Duration: Chronic Associated Symptoms: Denies: Confusion, Fever/Chills, Shortness of Breath Headache Pain Score (Numeric/FACES): 8 - Related Data Allergies Allergy/AdvReac Type Severity Reaction Status Date / Time oxycodone AdvReac Nausea Verified 07/13/16 15:13 tramadol AdvReac Nausea Verified 07/13/16 15:13 Home Meds: Home Meds HYDROmorphone HCl [Dilaudid] 8 mg PO Q8H PRN 07/02/16 [History] Ondansetron [Zofran ODT] 4 mg PO Q6H PRN 07/03/16 [History] Past Medical History HEENT History: Reports: Head Respiratory History: Reports: Pneumothorax Other Respiratory History: bilateral Musculoskeletal History: Reports: Fracture Neurological History: Reports: Brain Injury, Concussion, Head Trauma, Migraines Other Neuro History: 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 Immunologic History: Reports: Immunosuppression Other Immunologic History: radiation therapy Oncologic (Cancer) History: Reports: Brain Other Oncologic History: Finished 6 weeks of radiation therapy for brain cancer on monday07/01/16 - Infectious Disease History Infectious Disease History: Reports: Chicken Pox - Past Surgical History Head Surgeries/Procedures: Reports: Craniotomy HEENT Surgical History: Reports: None Musculoskeletal Surgical History: Reports: Other (See Below) Other Musculoskeletal Surgeries/Procedures:: left knee Oncologic Surgical History: Reports: Other (See Below) Other Oncologic Surgeries/Procedures: radiation therapy done Social & Family History - Family History Family Medical History: Noncontributory - Tobacco Use Smoking Status *Q: Never Smoker Years of Tobacco use: 1 Packs/Tins Daily: 0.5 Used Tobacco, but Quit: Yes Month Tobacco Last Used: september Second Hand Smoke Exposure: No - Caffeine Use Caffeine Use: Reports: Coffee, Energy Drinks - Recreational Drug Use Recreational Drug Use: No ED ROS GENERAL - Review of Systems Review Of Systems: See Below Respiratory: Denies: Shortness of Breath GI/Abdominal: Reports: Nausea. Denies: Vomiting Skin: Reports: No Symptoms Neurological: Denies: Confusion Psychiatric: Reports: No Symptoms - Physical Exam Exam: See Below Exam Limited By: No Limitations General Appearance: Alert, No Apparent Distress Respiratory/Chest: No Respiratory Distress Neuro Exam (Abbreviated): Alert, Oriented, No Motor/Sensory Deficits, Other ( ambulates without difficulty) Course - Vital Signs Last Recorded V/S: Last Vital Signs Temp 98.1 F 07/13/16 15:15 Pulse 89 07/13/16 15:15 Resp 16 07/13/16 15:15 BP 124/82 07/13/16 15:15 Pulse Ox 98 07/13/16 15:15 - Orders/Labs/Meds Meds: Medications Discontinued Medications Generic Name Dose Route Start Last Admin Trade Name Pedro PRN Reason Stop Dose Admin Hydromorphone HCl 2 mg 07/13/16 15:34 07/13/16 15:44 Dilaudid IVPUSH 07/13/16 15:35 2 mg ONETIME ONE Administration - Re-Assessments/Exams Free Text/Narrative Re-Assessment/Exam: 07/14/16 11:28 Patient was given 2 mg of IV Dilaudid then released to get his MRI Departure - Departure Time of Disposition: 16:26 Disposition: Home, Self-Care 01 Condition: fair Clinical Impression: Headache Qualifiers: Headache chronicity pattern: chronic headache Intractability: not intractable - Discharge Information Instructions: General Headache Without Cause, [id number] Referrals: Geovanny Tse Sr, MD [Primary Care Provider] - Forms: ED Department Discharge Care Plan Goals: Report for your MRI as ordered.
== END 2016-07-13 15:44 | disposition home or self-care (01) ==
LOC: JP.ED 14:42
DX: R51 Headache (principal); Z85.841 Personal history of malignant neoplasm of brain; Z98.890 Other specified postprocedural states; Z88.8 Allergy status to other drugs, medicaments and biological substances
CPT/HCPCS: 96374; 99284; J1170

== ENCOUNTER 2016-07-22 17:04 | Emergency (ER) | payer MEDICAID ==
[2016-07-22] MEDS ORDERED: Sodium Chloride 0.9% 10 ML Syringe FLUSH PRN (17:49)
[2016-07-22] MEDS ORDERED: Ketorolac 30 MG/ML SDV IVPUSH ONE (17:49)
--- NOTE | 2016-07-22 17:53 | EDM.PDOC ---
<Norberto Blas - Last Filed: 07/22/16 17:54> ED HPI GENERAL MEDICAL PROBLEM - General Chief Complaint: Headache Stated Complaint: MIGRAINE Time Seen by Provider: 07/22/16 17:45 Source of Information: Reports: Patient, Family History Limitations: Reports: No Limitations - History of Present Illness INITIAL COMMENTS - FREE TEXT/NARRATIVE: 31-year-old male with a known cerebral tumor has done well over the last 7 days since his MRI but is having a breakthrough frontal headache today. No significant nausea or vomiting. He continues to take it milligrams of Dilaudid several times daily. No visual complaints. Quality: Reports: Ache, Throbbing Severity: Moderate Associated Symptoms: Denies: Confusion, Fever/Chills, Weakness - Related Data Allergies Allergy/AdvReac Type Severity Reaction Status Date / Time oxycodone AdvReac Nausea Verified 07/13/16 15:13 tramadol AdvReac Nausea Verified 07/13/16 15:13 Home Meds: Home Meds HYDROmorphone HCl [Dilaudid] 8 mg PO Q8H PRN 07/02/16 [History] Ondansetron [Zofran ODT] 4 mg PO Q6H PRN 07/03/16 [History] Past Medical History HEENT History: Reports: Head Respiratory History: Reports: Pneumothorax Other Respiratory History: bilateral Musculoskeletal History: Reports: Fracture Neurological History: Reports: Brain Injury, Concussion, Head Trauma, Migraines Other Neuro History: 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 Immunologic History: Reports: Immunosuppression Other Immunologic History: radiation therapy Oncologic (Cancer) History: Reports: Brain Other Oncologic History: Finished 6 weeks of radiation therapy for brain cancer on monday07/01/16 - Infectious Disease History Infectious Disease History: Reports: Chicken Pox - Past Surgical History Head Surgeries/Procedures: Reports: Craniotomy HEENT Surgical History: Reports: None Musculoskeletal Surgical History: Reports: Other (See Below) Other Musculoskeletal Surgeries/Procedures:: left knee Oncologic Surgical History: Reports: Other (See Below) Other Oncologic Surgeries/Procedures: radiation therapy done Dermatological Surgical History: Reports: None Social & Family History - Family History Family Medical History: Noncontributory - Tobacco Use Smoking Status *Q: Never Smoker Years of Tobacco use: 1 Packs/Tins Daily: 0.5 Used Tobacco, but Quit: Yes Month Tobacco Last Used: september Second Hand Smoke Exposure: No - Caffeine Use Caffeine Use: Reports: Coffee, Energy Drinks - Recreational Drug Use Recreational Drug Use: No ED ROS GENERAL - Review of Systems Review Of Systems: See Below Constitutional: Denies: Fever HEENT: Denies: Vision Change Respiratory: Denies: Shortness of Breath Cardiovascular: Denies: Chest Pain GI/Abdominal: Reports: Nausea. Denies: Vomiting Musculoskeletal: Reports: No Symptoms Skin: Reports: No Symptoms - Physical Exam Exam: See Below Exam Limited By: No Limitations General Appearance: Alert, No Apparent Distress Eye Exam: Bilateral Eye: EOMI, PERRL Respiratory/Chest: No Respiratory Distress Cardiovascular: Regular Rate, Rhythm Neuro Exam (Abbreviated): Alert, Oriented, No Motor/Sensory Deficits Psychiatric: Normal Affect, Normal Mood Skin Exam: Warm, Dry Course - Vital Signs Last Recorded V/S: Last Vital Signs Temp 97.8 F 07/22/16 20:19 Pulse 89 07/22/16 20:19 Resp 15 07/22/16 20:19 BP 132/75 07/22/16 20:19 Pulse Ox 99 07/22/16 20:19 - Orders/Labs/Meds Orders: Active Orders 24 hr Category Date Time Status Sodium Chloride 0.9% [Normal Saline] 1,000 ml Med 07/22/16 18:00 Active IV ASDIRECTED Sodium Chloride 0.9% [Saline Flush] Med 07/22/16 17:49 Active 10 ml FLUSH ASDIRECTED PRN Saline Lock Insert [OM.PC] Routine Oth 07/22/16 17:49 Ordered Medication Orders Sodium Chloride (Normal Saline) 1,000 mls @ 1,000 mls/hr IV ASDIRECTED JADEN Last Admin: 07/22/16 18:00 Dose: 1,000 mls/hr Sodium Chloride (Saline Flush) 10 ml FLUSH ASDIRECTED PRN PRN Reason: Keep Vein Open Last Admin: 07/22/16 17:59 Dose: 10 ml Meds: Medications Generic Name Dose Route Start Last Admin Trade Name Freq PRN Reason Stop Dose Admin Sodium Chloride 1,000 mls @ 1,000 mls/hr 07/22/16 18:00 07/22/16 18:00 Normal Saline IV 1,000 mls/hr ASDIRECTED JADEN Administration Sodium Chloride 10 ml 07/22/16 17:49 07/22/16 17:59 Saline Flush FLUSH 10 ml ASDIRECTED PRN Administration Keep Vein Open Discontinued Medications Generic Name Dose Route Start Last Admin Trade Name Pedro PRN Reason Stop Dose Admin Diphenhydramine HCl 50 mg 07/22/16 21:08 07/22/16 21:13 Benadryl IVPUSH 07/22/16 21:09 50 mg ONETIME ONE Administration Haloperidol Lactate 5 mg 07/22/16 20:24 07/22/16 20:51 Haldol IVPUSH 07/22/16 20:25 5 mg ONETIME ONE Administration Hydromorphone HCl 2 mg 07/22/16 18:12 07/22/16 19:04 Dilaudid IVPUSH 07/22/16 18:13 1 mg ONETIME ONE Administration Ketorolac Tromethamine 30 mg 07/22/16 17:49 07/22/16 17:59 Toradol IVPUSH 07/22/16 17:50 30 mg ONETIME ONE Administration - Re-Assessments/Exams Free Text/Narrative Re-Assessment/Exam: 07/22/16 17:52 A saline lock was initiated and the patient was given 30 mg of Toradol IV. 1 L of normal saline bolus was also initiated. Care was turned over to Dr. Ramirez. Departure - Departure Disposition: Home, Self-Care 01 Clinical Impression: Craniopharyngioma Headache Qualifiers: Headache type: unspecified Headache chronicity pattern: chronic headache Intractability: not intractable Qualified Code(s): R51 - Headache - Discharge Information Forms: ED Department Discharge Additional Instructions: Please followup with your primary care provider in 3-5 days if not better, please call return to the emergency department with worsening of symptoms. <Rafi Ramirez - Last Filed: 07/22/16 22:11> Departure - Departure Time of Disposition: 22:10 Condition: poor - Assessment/Plan Plan: Assessment Acuity = acute Site and laterality = chronic headaches Etiology = secondary to craniopharyngioma Manifestations = pain Location of injury = home Lab values = none Plan He had no improvement with comminution 30 mg Toradol, 2 mg Dilaudid IV, 5 mg Haldol and 50 mg Benadryl however he does feel okay to return home try and rest resume his normal 8 mg daily of Dilaudid Patient was in agreement with the plan all questions were answered, they were instructed to return to the emergency department or call for worsening symptoms. This note was dictated using [employer] voice recognition software please call with any questions.
[2016-07-22] MEDS ORDERED: Sodium Chloride 0.9% 1,000 ML IV SCH (18:00)
[2016-07-22] MEDS: HYDROmorphone 1 MG/ML Syringe IVPUSH ONE ×3 (18:28→19:04)
[2016-07-22 20:19] VITALS: BP 132/75
[2016-07-22] MEDS ORDERED: Haloperidol Lactate 5 MG/ML SDV IVPUSH ONE (20:24)
[2016-07-22] MEDS ORDERED: diphenhydrAMINE 50 MG/ML SDV IVPUSH ONE (21:08)
== END 2016-07-22 22:27 | disposition home or self-care (01) ==
LOC: JP.ED 17:04
DX: D44.4 Neoplasm of uncertain behavior of craniopharyngeal duct (principal); G43.909 Migraine, unspecified, not intractable, without status migrainosus; Z98.890 Other specified postprocedural states; Z88.6 Allergy status to analgesic agent
CPT/HCPCS: 96361; 96374; 96375; 99283; J1170; J1200; J1630; J1885; J7040; J7050

== ENCOUNTER 2016-08-10 03:35 | Emergency (ER) | payer MEDICAID ==
[2016-08-10] MEDS ORDERED: Ketorolac 60 MG/2 ML SDV IM ONE (04:25)
[2016-08-10] MEDS ORDERED: HYDROmorphone 1 MG/ML Syringe IM ONE (04:25)
[2016-08-10 04:36] VITALS: BP 144/95
--- NOTE | 2016-08-10 04:39 | EDM.PDOC ---
ED HPI GENERAL MEDICAL PROBLEM - General Chief Complaint: Headache Stated Complaint: HEADACHE Time Seen by Provider: 08/10/16 04:15 Source of Information: Reports: Patient History Limitations: Reports: No Limitations - History of Present Illness INITIAL COMMENTS - FREE TEXT/NARRATIVE: 31-year-old male with a known brain tumor is on very large amounts of Dilaudid chronically for headache. He is in with an exacerbation although he looks comfortable. He is already gone through almost 200 doses of 4 mg Dilaudid this month. He says Dilaudid is the only thing that works, although sometimes Toradol and Dilaudid together works a little better. Onset: Gradual (Over the past 1-2 days) Severity: Moderate Associated Symptoms: Denies: Nausea/Vomiting Headache Pain Score (Numeric/FACES): 9 - Related Data Allergies Allergy/AdvReac Type Severity Reaction Status Date / Time oxycodone AdvReac Nausea Verified 07/13/16 15:13 tramadol AdvReac Nausea Verified 07/13/16 15:13 Home Meds: Home Meds HYDROmorphone HCl [Dilaudid] 8 mg PO Q8H PRN 07/02/16 [History] Ondansetron [Zofran ODT] 4 mg PO Q6H PRN 07/03/16 [History] Past Medical History HEENT History: Reports: Head Respiratory History: Reports: Pneumothorax Other Respiratory History: bilateral Musculoskeletal History: Reports: Fracture Neurological History: Reports: Brain Injury, Concussion, Head Trauma, Migraines Other Neuro History: 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 Immunologic History: Reports: Immunosuppression Other Immunologic History: radiation therapy Oncologic (Cancer) History: Reports: Brain Other Oncologic History: Finished 6 weeks of radiation therapy for brain cancer on monday07/01/16 - Infectious Disease History Infectious Disease History: Reports: Chicken Pox - Past Surgical History Head Surgeries/Procedures: Reports: Craniotomy HEENT Surgical History: Reports: None Musculoskeletal Surgical History: Reports: Other (See Below) Other Musculoskeletal Surgeries/Procedures:: left knee Oncologic Surgical History: Reports: Other (See Below) Other Oncologic Surgeries/Procedures: radiation therapy done Dermatological Surgical History: Reports: None Social & Family History - Family History Family Medical History: Noncontributory - Tobacco Use Smoking Status *Q: Never Smoker Years of Tobacco use: 1 Packs/Tins Daily: 0.5 Used Tobacco, but Quit: Yes Month Tobacco Last Used: september Second Hand Smoke Exposure: No - Caffeine Use Caffeine Use: Reports: Coffee, Energy Drinks - Recreational Drug Use Recreational Drug Use: No ED ROS GENERAL - Review of Systems Review Of Systems: See Below Constitutional: Denies: Fever, Chills HEENT: Denies: Vision Change Respiratory: Denies: Shortness of Breath Cardiovascular: Denies: Chest Pain GI/Abdominal: Denies: Vomiting Skin: Reports: No Symptoms - Physical Exam Exam: See Below Exam Limited By: No Limitations General Appearance: Alert, No Apparent Distress Eye Exam: Bilateral Eye: EOMI Respiratory/Chest: No Respiratory Distress Neuro Exam (Abbreviated): Alert, Oriented, No Motor/Sensory Deficits (Grossly normal, ambulates without difficulty, speech is normal) Course - Vital Signs Last Recorded V/S: Last Vital Signs Temp 98.8 F 08/10/16 03:50 Pulse 82 08/10/16 03:50 Resp 18 08/10/16 03:50 BP 144/95 H 08/10/16 03:50 Pulse Ox 99 08/10/16 03:50 - Orders/Labs/Meds Meds: Medications Discontinued Medications Generic Name Dose Route Start Last Admin Trade Name Albertoq PRN Reason Stop Dose Admin Hydromorphone HCl 2 mg 08/10/16 04:25 08/10/16 04:33 Dilaudid IM 08/10/16 04:26 2 mg ONETIME ONE Administration Ketorolac Tromethamine 60 mg 08/10/16 04:25 08/10/16 04:33 Toradol IM 08/10/16 04:26 60 mg ONETIME ONE Administration - Re-Assessments/Exams Free Text/Narrative Re-Assessment/Exam: 08/10/16 04:37 Patient was given 60 mg of Toradol IM along with 2 mg of Dilaudid IM. He asked about dosage amounts before the injections and was already commenting that he would need more. He is to fill his usual prescription and take his medicines as prescribed. A [employer] search shows he is running out of his Dilaudid early on a regular basis. Departure - Departure Time of Disposition: 04:44 Disposition: Home, Self-Care 01 Condition: Good Clinical Impression: History of brain tumor Headache Qualifiers: Headache type: unspecified Headache chronicity pattern: chronic headache Intractability: not intractable Qualified Code(s): R51 - Headache - Discharge Information Instructions: Tension Headache, [id number] Referrals: PCP,None [Primary Care Provider] - Forms: ED Department Discharge Care Plan Goals: Resume your regular medications. Follow up with your primary doctors as needed.
== END 2016-08-10 04:44 | disposition home or self-care (01) ==
LOC: JP.ED 03:35
DX: R51 Headache (principal); Z85.841 Personal history of malignant neoplasm of brain; Z90.89 Acquired absence of other organs; Z88.8 Allergy status to other drugs, medicaments and biological substances; Z88.6 Allergy status to analgesic agent
CPT/HCPCS: 96372; 99284; J1170; J1885

== ENCOUNTER 2016-09-14 16:14 | Emergency (ER) | payer MEDICAID ==
[2016-09-14 16:49] VITALS: BP 137/67
[2016-09-14] MEDS ORDERED: HYDROmorphone 1 MG/ML Syringe IM ONE (17:11)
[2016-09-14] MEDS ORDERED: Ketorolac 60 MG/2 ML SDV IM ONE (17:11)
--- NOTE | 2016-09-14 17:14 | EDM.PDOC ---
ED HPI GENERAL MEDICAL PROBLEM - General Chief Complaint: Headache Stated Complaint: MIGRAINE Time Seen by Provider: 09/14/16 17:05 Source of Information: Reports: Patient, Family, Old Records, RN Notes Reviewed History Limitations: Reports: No Limitations - History of Present Illness INITIAL COMMENTS - FREE TEXT/NARRATIVE: 31-year-old gentleman with a known history of suprasellar craniopharyngioma status post beam radiation presents, with complaint of headache today he's been seen in the emergency department multiple times for this complaint he states he was relatively controlled over the last 10 days and then have an exacerbation today. He remains on 8 mg of Dilaudid every 8 hours for normal control Headache Pain Score (Numeric/FACES): 9 - Related Data Allergies Allergy/AdvReac Type Severity Reaction Status Date / Time haloperidol [From Haldol] Allergy Rash Verified 09/14/16 16:51 oxycodone AdvReac Nausea Verified 09/14/16 16:51 tramadol AdvReac Nausea Verified 09/14/16 16:51 Home Meds: Home Meds HYDROmorphone HCl [Dilaudid] 8 mg PO Q8H PRN 07/02/16 [History] Ondansetron [Zofran ODT] 4 mg PO Q6H PRN 07/03/16 [History] Promethazine [Phenergan] 1 tab PO Q6H 09/14/16 [History] Past Medical History HEENT History: Reports: Head Respiratory History: Reports: Pneumothorax Other Respiratory History: bilateral Musculoskeletal History: Reports: Fracture Neurological History: Reports: Brain Injury, Concussion, Head Trauma, Migraines Other Neuro History: 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 Immunologic History: Reports: Immunosuppression Other Immunologic History: radiation therapy Oncologic (Cancer) History: Reports: Brain Other Oncologic History: Finished 6 weeks of radiation therapy for brain cancer on monday07/01/16 - Infectious Disease History Infectious Disease History: Reports: Chicken Pox - Past Surgical History Head Surgeries/Procedures: Reports: Craniotomy HEENT Surgical History: Reports: None Musculoskeletal Surgical History: Reports: Other (See Below) Other Musculoskeletal Surgeries/Procedures:: left knee Oncologic Surgical History: Reports: Other (See Below) Other Oncologic Surgeries/Procedures: radiation therapy done Dermatological Surgical History: Reports: None Social & Family History - Family History Family Medical History: Noncontributory - Tobacco Use Smoking Status *Q: Never Smoker Years of Tobacco use: 1 Packs/Tins Daily: 0.5 Used Tobacco, but Quit: Yes Month Tobacco Last Used: september Second Hand Smoke Exposure: No - Caffeine Use Caffeine Use: Reports: Coffee, Energy Drinks - Recreational Drug Use Recreational Drug Use: No ED ROS GENERAL - Review of Systems Review Of Systems: See Below Constitutional: Reports: No Symptoms HEENT: Reports: No Symptoms Neurological: Reports: Headache - Physical Exam Exam: See Below Exam Limited By: No Limitations General Appearance: Alert, Mild Distress Eye Exam: Bilateral Eye: Normal Fundi, Normal Inspection Respiratory/Chest: No Respiratory Distress, Lungs Clear, Normal Breath Sounds, No Accessory Muscle Use Cardiovascular: Regular Rate, Rhythm, No Murmur Neuro Exam (Abbreviated): Alert, Oriented, CN II-XII Intact, Normal Cognition Course - Vital Signs Last Recorded V/S: Last Vital Signs Temp 98.2 F 09/14/16 16:50 Pulse 81 09/14/16 16:50 Resp 16 09/14/16 16:50 BP 137/67 09/14/16 16:50 Pulse Ox 99 09/14/16 16:50 - Orders/Labs/Meds Meds: Medications Discontinued Medications Generic Name Dose Route Start Last Admin Trade Name Pedro PRN Reason Stop Dose Admin Hydromorphone HCl 2 mg 09/14/16 17:11 09/14/16 17:41 Dilaudid IM 09/14/16 17:12 2 mg ONETIME ONE Administration Ketorolac Tromethamine 60 mg 09/14/16 17:11 09/14/16 17:40 Toradol IM 09/14/16 17:12 60 mg ONETIME ONE Administration Departure - Departure Time of Disposition: 18:10 Disposition: Home, Self-Care 01 Condition: Fair Clinical Impression: Craniopharyngioma Headache Qualifiers: Headache type: unspecified Headache chronicity pattern: chronic headache Intractability: not intractable Qualified Code(s): R51 - Headache - Discharge Information Forms: ED Department Discharge Additional Instructions: Resume normal medications, keep your follow-up appointments with the [facility] upcoming in October - Assessment/Plan Plan: Assessment Acuity = chronic Site and laterality = headaches, [place] patient with history of craniopharyngioma Etiology = unclear etiology Manifestations = pain Location of injury = Home Lab values = none Plan Good relief combination 2 mg Dilaudid and 60 mg Toradol IM injections keep follow-up appointments with neurology Patient was in agreement with the plan all questions were answered, they were instructed to return to the emergency department or call for worsening symptoms. This note was dictated using [employer] voice recognition software please call with any questions.
== END 2016-09-14 18:24 | disposition home or self-care (01) ==
LOC: JP.ED 16:14
DX: D44.4 Neoplasm of uncertain behavior of craniopharyngeal duct (principal); G43.909 Migraine, unspecified, not intractable, without status migrainosus; Z79.899 Other long term (current) drug therapy; Z88.6 Allergy status to analgesic agent; Z88.5 Allergy status to narcotic agent; Z88.8 Allergy status to other drugs, medicaments and biological substances
CPT/HCPCS: 96372; 99283; J1170; J1885

== ENCOUNTER 2016-09-15 10:44 | Emergency (ER) | payer MEDICAID ==
[2016-09-15 11:58] VITALS: BP 125/88
--- NOTE | 2016-09-15 13:47 | EDM.PDOC ---
ED HPI GENERAL MEDICAL PROBLEM - General Chief Complaint: Headache Stated Complaint: SEVERE HEADACHE Time Seen by Provider: 09/15/16 13:48 Source of Information: Reports: Patient History Limitations: Reports: No Limitations - History of Present Illness INITIAL COMMENTS - FREE TEXT/NARRATIVE: pt has very severe headache and he is asking for further dilaudid. He is allergic to torodol. [facility] was called and they advised that his tumor was stable and he should be tapered off of the narcotics. He has been receiving them from Dr Phan at [place] and he has now refered him to a methadone clinic. Johny considers [facility] to be his primary. He has been receiving Dilaudid at times from 2 places according to the drug registry. This was 2 times at the same time. Onset: Today, Other ( Pt was also here yesterday. ) Duration: Hour(s): Location: Reports: Head Associated Symptoms: Reports: Nausea/Vomiting, Other ( Pt is not able to hold his oral meds down. ) - Related Data Allergies Allergy/AdvReac Type Severity Reaction Status Date / Time haloperidol [From Haldol] Allergy Rash Verified 09/15/16 12:32 oxycodone AdvReac Nausea Verified 09/15/16 12:32 tramadol AdvReac Nausea Verified 09/15/16 12:32 Home Meds: Home Meds HYDROmorphone HCl [Dilaudid] 8 mg PO Q8H PRN 07/02/16 [History] Ondansetron [Zofran ODT] 4 mg PO Q6H PRN 07/03/16 [History] Promethazine [Phenergan] 1 tab PO Q6H 09/14/16 [History] Past Medical History HEENT History: Reports: Head Respiratory History: Reports: Pneumothorax Other Respiratory History: bilateral Musculoskeletal History: Reports: Fracture Neurological History: Reports: Brain Injury, Concussion, Head Trauma, Migraines Other Neuro History: 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 Immunologic History: Reports: Immunosuppression Other Immunologic History: radiation therapy Oncologic (Cancer) History: Reports: Brain Other Oncologic History: Finished 6 weeks of radiation therapy for brain cancer on monday07/01/16 - Infectious Disease History Infectious Disease History: Reports: Chicken Pox - Past Surgical History Head Surgeries/Procedures: Reports: Craniotomy HEENT Surgical History: Reports: None Musculoskeletal Surgical History: Reports: Other (See Below) Other Musculoskeletal Surgeries/Procedures:: left knee Oncologic Surgical History: Reports: Other (See Below) Other Oncologic Surgeries/Procedures: radiation therapy done Dermatological Surgical History: Reports: None Social & Family History - Family History Family Medical History: Noncontributory - Tobacco Use Smoking Status *Q: Never Smoker Years of Tobacco use: 1 Packs/Tins Daily: 0.5 Used Tobacco, but Quit: Yes Month Tobacco Last Used: september Second Hand Smoke Exposure: No - Caffeine Use Caffeine Use: Reports: Energy Drinks, Soda Other Caffeine Use: one a day - Recreational Drug Use Recreational Drug Use: No ED ROS GENERAL - Review of Systems Review Of Systems: See Below Constitutional: Reports: No Symptoms HEENT: Reports: No Symptoms Respiratory: Reports: No Symptoms Cardiovascular: Reports: No Symptoms Endocrine: Reports: No Symptoms GI/Abdominal: Reports: Nausea, Vomiting Neurological: Reports: Headache - Physical Exam Exam: See Below Text/Narrative:: pt eloped before a full exam was done on him. He was offered meds for nausea. . Once he was feeling better the exam would be done. Course - Vital Signs Last Recorded V/S: Last Vital Signs Temp 37.1 C 09/15/16 12:16 Pulse 85 09/15/16 12:16 Resp 16 09/15/16 12:16 BP 125/88 09/15/16 12:16 Pulse Ox 99 09/15/16 12:16 - Re-Assessments/Exams Free Text/Narrative Re-Assessment/Exam: 09/16/16 07:14 [place] was called to the neurosurgery dept and the status of his tumor was evaluated. His last checkup showed a stable tumor. It was the feeling of the dept that he needed to decrease his narcotics and switch to something like gabapentin. He has been getting perscriptions from Dr Geovanny Tse. This is per the direction of [place]. Dr Tse will no longer refill his meds. At the same time Johny was getting perscriptions from Dr Phan at [place]. Dr Phan refered him to the Methadone clinic in [place]-- this was after a discussion with [place]. Johny never went to the methadone clinic. He has transfered his care to [facility] and [facility] and he considers that his primary. He has received 1 perscription from Lexi Solorio at [facility] . This was 09/05 for 180. A discussion was held with him yesterday before he eloped. He was advised that no further narcotic could be offered because of all of the history. He is allergic torodol. zoforan and ativan was offered to the pt and he eloped before it could be gotten. He was also advised that if he were to need meds per his primary that he needed to bring records here indicating that. these meds should be given. Departure - Departure Time of Disposition: 13:45 Disposition: Eloped 07 Condition: Fair Clinical Impression: Headache - Discharge Information Referrals: PCP,None [Primary Care Provider] - Forms: ED Department Discharge Care Plan Goals: pt was offered zoforan and ativan and then he was to go home and take jhis dilaudid. He left before meds were given.
--- NOTE | 2016-09-19 11:20 | LETTER ---
09/16/2016 RE: HAYLEY APONTE : 1985 To Whom It May concern: Hayley Aponte is a 31-year-old patient who has been coming in and out of the ER for extra narcotics or extra Dilaudid because of a severe headache. Hayley has a history of a brain tumor, which is at this point stable and is being followed closely. He is on very large doses of Dilaudid 8 mg every 4-6 hours p.o. and then he comes in for injectable Dilaudid. He arrived at the emergency room on 09/15/2016, at which time, he stated that he had a headache that was totally out of control. He had been at the ER the day before and had received Dilaudid. At this point, before seeing the patient, I did call [facility] to see the status of his tumor and what their recommendations were regarding narcotics. The status at this point is stable, and they are recommending tapering from the narcotics and going to something like gabapentin. Hayley has been getting prescriptions from Dr. Geovanny Tse in [place], and we did call his office, and I personally spoke with Dr. Tse, who stated that he was not willing to continue to refill the Dilaudid. The last refill from Dr. Tse was July 15. Hayley has also been getting prescriptions from Dr. Sushant Phan at [facility] in [place]. He also has received prescriptions from Dr. Phan at the same time that he received a prescription from Dr. Tse. Dr. Phan had referred the patient to a Methadone Clinic in [place] to try to get off the Dilaudid and on to some methadone for pain control. Hayley has been recently seen at [facility] and he states that [facility] is his primary care facility. He has in the interim received a prescription both from Dr. Phan and Lexi Taylor at [facility], and these are three or four days apart, and the one from Deja is for [address] Phan was 64. At this point, I did discuss with Hayley, because he is nauseated and having difficulty holding his oral medications down, that when I saw him on the , I was willing to give him some Zofran and Ativan to control his nausea. I was not willing to give any further narcotics unless we had a written statement from his primary care physician that this was the type of care and what we needed to do when he did get the headaches. Before these medications could be given, Hayley left the hospital or eloped from the hospital. At this point, Hayley is considering [facility] his primary care facility, and that is where he should receive his prescriptions, and unless he has a written set of records indicating that we need to support him in our community by giving him extra Dilaudid IM or IV, I feel that Hayley should not receive narcotics from our facility. I did tell Hayley that we were willing to support him, if we had records that would indicate that that was the type of care that needed to be done. Sincerely,
== END 2016-09-15 13:33 | disposition left against medical advice (07) ==
LOC: EEVIPCON 10:44 → JP.ED 10:44
DX: R51 Headache (principal); G43.909 Migraine, unspecified, not intractable, without status migrainosus; Z85.841 Personal history of malignant neoplasm of brain; Z98.890 Other specified postprocedural states; Z79.899 Other long term (current) drug therapy; Z88.6 Allergy status to analgesic agent; Z88.8 Allergy status to other drugs, medicaments and biological substances
CPT/HCPCS: 99284

== ENCOUNTER 2017-02-05 09:37 | Emergency (ER) | payer MEDICAID ==
[2017-02-05 09:59] VITALS: BP 135/73
[2017-02-05] MEDS ORDERED: Morphine 10 MG/ML Syringe IVPUSH ONE ×2 (10:45→12:22)
[2017-02-05] MEDS ORDERED: Prochlorperazine 10 MG/2 ML SDV IVPUSH ONE (10:45)
[2017-02-05] MEDS ORDERED: Sodium Chloride 0.9% 10 ML Syringe FLUSH PRN (10:45)
[2017-02-05] MEDS ORDERED: Sodium Chloride 0.9% 1,000 ML IV SCH (10:45)
--- NOTE | 2017-02-05 12:28 | EDM.PDOC ---
ED HPI GENERAL MEDICAL PROBLEM - General Chief Complaint: Headache Stated Complaint: NAUSEA/CANT KEEP ANYTHING DOWN Time Seen by Provider: 02/05/17 10:43 Source of Information: Reports: Patient, Old Records (Dr. Arrieta's letter dated 09/16/16 and her last ER note) History Limitations: Reports: No Limitations - History of Present Illness INITIAL COMMENTS - FREE TEXT/NARRATIVE: This patient has a history of a suprasellar tumor. He's been treated at [facility]. Presently he's taking MS Contin but says that the last couple days he's been vomiting and is unable to hold medication down. He takes 4 mg of Zofran every 6 or 8 hours says that doesn't help. He also has some Compazine but he can't hold that down either. He denies any fever he says his head is pounding in the area of the for head. He denies any body aches or other flu symptoms. Headache Pain Score (Numeric/FACES): 9 - Related Data Allergies Allergy/AdvReac Type Severity Reaction Status Date / Time haloperidol [From Haldol] Allergy Rash Verified 02/05/17 09:59 oxycodone AdvReac Nausea Verified 02/05/17 09:59 tramadol AdvReac Nausea Verified 02/05/17 09:59 Home Meds: Home Meds Ondansetron [Zofran ODT] 4 mg PO Q6H PRN 07/03/16 [History] Morphine [MS Contin] 30 mg PO TID 02/05/17 [History] Past Medical History HEENT History: Reports: Head, Other (See Below) Other HEENT History: brain tumor Respiratory History: Reports: Pneumothorax Other Respiratory History: bilateral Musculoskeletal History: Reports: Fracture Neurological History: Reports: Brain Injury, Concussion, Head Trauma, Migraines Other Neuro History: 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 Immunologic History: Reports: Immunosuppression Other Immunologic History: radiation therapy Oncologic (Cancer) History: Reports: Brain Other Oncologic History: Finished 6 weeks of radiation therapy for brain cancer on monday07/01/16 - Infectious Disease History Infectious Disease History: Reports: Chicken Pox - Past Surgical History Head Surgeries/Procedures: Reports: Craniotomy HEENT Surgical History: Reports: None Other HEENT Surgeries/Procedures: surgery brain tumor Musculoskeletal Surgical History: Reports: Other (See Below) Other Musculoskeletal Surgeries/Procedures:: left knee Oncologic Surgical History: Reports: Other (See Below) Other Oncologic Surgeries/Procedures: radiation therapy done Dermatological Surgical History: Reports: None Social & Family History - Family History Family Medical History: Noncontributory - Tobacco Use Smoking Status *Q: Never Smoker Years of Tobacco use: 1 Packs/Tins Daily: 0.5 Used Tobacco, but Quit: Yes Month Tobacco Last Used: september Second Hand Smoke Exposure: No - Caffeine Use Caffeine Use: Reports: Coffee Other Caffeine Use: one a day - Recreational Drug Use Recreational Drug Use: No ED ROS GENERAL - Review of Systems Review Of Systems: See Below Constitutional: Reports: No Symptoms HEENT: Reports: No Symptoms Respiratory: Reports: No Symptoms Cardiovascular: Reports: No Symptoms Endocrine: Reports: No Symptoms GI/Abdominal: Reports: No Symptoms Musculoskeletal: Reports: No Symptoms Skin: Reports: No Symptoms Neurological: Reports: Headache Psychiatric: Reports: No Symptoms Hematologic/Lymphatic: Reports: No Symptoms Immunologic: Reports: No Symptoms - Physical Exam Exam: See Below Exam Limited By: No Limitations General Appearance: Alert, WD/WN, Mild Distress Eye Exam: Bilateral Eye: Normal Inspection Ears: Normal External Exam Nose: Normal Inspection Throat/Mouth: Normal Oropharynx Head Exam: Atraumatic Neck: Normal Inspection Respiratory/Chest: Lungs Clear Cardiovascular: Regular Rate, Rhythm GI/Abdominal: Normal Bowel Sounds, Soft, Non-Tender Neuro Exam (Abbreviated): Alert, Oriented Extremities: Normal Inspection Skin Exam: Warm, Dry Course - Vital Signs Last Recorded V/S: Last Vital Signs Temp 36.4 C 02/05/17 09:58 Pulse 61 02/05/17 09:58 Resp 20 02/05/17 09:58 BP 135/73 02/05/17 09:58 Pulse Ox 100 02/05/17 09:58 - Orders/Labs/Meds Orders: Active Orders 24 hr Category Date Time Status Morphine Med 02/05/17 12:22 Once 8 mg IVPUSH ONETIME ONE Sodium Chloride 0.9% [Normal Saline] 1,000 ml Med 02/05/17 10:45 Active IV ASDIRECTED Sodium Chloride 0.9% [Saline Flush] Med 02/05/17 10:45 Active 10 ml FLUSH ASDIRECTED PRN Saline Lock Insert [OM.PC] Urgent Oth 02/05/17 10:44 Ordered Medication Orders Sodium Chloride (Normal Saline) 1,000 mls @ 999 mls/hr IV ASDIRECTED JADEN Last Admin: 02/05/17 10:57 Dose: 999 mls/hr Morphine Sulfate (Morphine) 8 mg IVPUSH ONETIME ONE Stop: 02/05/17 12:23 Sodium Chloride (Saline Flush) 10 ml FLUSH ASDIRECTED PRN PRN Reason: Keep Vein Open Meds: Medications Generic Name Dose Route Start Last Admin Trade Name Freq PRN Reason Stop Dose Admin Sodium Chloride 1,000 mls @ 999 mls/hr 02/05/17 10:45 02/05/17 10:57 Normal Saline IV 999 mls/hr ASDIRECTED JADEN Administration Morphine Sulfate 8 mg 02/05/17 12:22 Morphine IVPUSH 02/05/17 12:23 ONETIME ONE Sodium Chloride 10 ml 02/05/17 10:45 Saline Flush FLUSH ASDIRECTED PRN Keep Vein Open Discontinued Medications Generic Name Dose Route Start Last Admin Trade Name Freq PRN Reason Stop Dose Admin Morphine Sulfate 8 mg 02/05/17 10:45 02/05/17 11:01 Morphine IVPUSH 02/05/17 10:46 8 mg ONETIME ONE Administration Prochlorperazine Edisylate 5 mg 02/05/17 10:45 02/05/17 10:58 Compazine IVPUSH 02/05/17 10:46 5 mg ONETIME ONE Administration - Re-Assessments/Exams Free Text/Narrative Re-Assessment/Exam: 02/05/17 12:28 This patient received 1 L IV normal saline. He received 1 dose of 5 morphine 8 mg IV. This gave partial relief he asked for another dose before he left. He got a second dose of 8 mg. Patient has both the Zofran and Compazine at home. We had a discussion about how to use these various medications. He can increase his Zofran to 8 mg per dose or he can use the Compazine. Should not use both of them together however. Departure - Departure Time of Disposition: 12:29 Disposition: Home, Self-Care 01 Condition: Fair Clinical Impression: Headache due to intracranial disease - Discharge Information Referrals: PCP,None [Primary Care Provider] - Additional Instructions: You may increase the Zofran to 8 mg sublingually. Or NSAID you may find that the Compazine helps more. Recommend clear liquid diet for the rest the day. Continue the MS Contin as before - My Orders Last 24 Hours: My Active Orders 02/05/17 10:44 Saline Lock Insert [OM.PC] Urgent 02/05/17 10:45 Sodium Chloride 0.9% [Normal Saline] 1,000 ml IV ASDIRECTED Sodium Chloride 0.9% [Saline Flush] 10 ml FLUSH ASDIRECTED PRN 02/05/17 12:22 Morphine 8 mg IVPUSH ONETIME ONE - Assessment/Plan Last 24 Hours: My Active Orders 02/05/17 10:44 Saline Lock Insert [OM.PC] Urgent 02/05/17 10:45 Sodium Chloride 0.9% [Normal Saline] 1,000 ml IV ASDIRECTED Sodium Chloride 0.9% [Saline Flush] 10 ml FLUSH ASDIRECTED PRN 02/05/17 12:22 Morphine 8 mg IVPUSH ONETIME ONE
== END 2017-02-05 12:42 | disposition home or self-care (01) ==
LOC: JP.ED 09:37
DX: R51 Headache (principal); Z85.841 Personal history of malignant neoplasm of brain; Z88.8 Allergy status to other drugs, medicaments and biological substances
CPT/HCPCS: 96361; 96374; 96375; 96376; 99284; J0780; J2270; J7040

== ENCOUNTER 2017-03-26 17:40 | Emergency (ER) | payer MEDICAID ==
[2017-03-26 18:03] VITALS: BP 138/84
[2017-03-26] MEDS ORDERED: Ondansetron 4 MG/2 ML SDV IVPUSH ONE (18:29)
[2017-03-26] MEDS ORDERED: Lactated Ringers 1,000 ML IV ONE (18:43)
[2017-03-26] MEDS ORDERED: HYDROmorphone 1 MG/ML Syringe IVPUSH ONE ×2 (18:43→19:55)
[2017-03-26] MEDS ORDERED: Prochlorperazine 10 MG/2 ML SDV IVPUSH ONE ×2 (18:43→18:53)
--- NOTE | 2017-03-26 18:46 | EDM.PDOC ---
ED HPI GENERAL MEDICAL PROBLEM - General Chief Complaint: Headache Stated Complaint: VOMITING/SEVERE HEADACHE DUE TO BRAIN TUMOR Time Seen by Provider: 03/26/17 18:37 Source of Information: Reports: Patient, Family, RN Notes Reviewed History Limitations: Reports: No Limitations - History of Present Illness INITIAL COMMENTS - FREE TEXT/NARRATIVE: 31-year-old gentleman presents to the emergency department today complaint of nausea vomiting and fever with headache, he has known history of suprasellar craniopharyngioma treated with beam radiation, he stated the nausea and vomiting all started today the headache started after the vomiting he has had fevers and chills today denies body aches did not get a flu shot this year Headache Pain Score (Numeric/FACES): 10 - Related Data Allergies Allergy/AdvReac Type Severity Reaction Status Date / Time haloperidol [From Haldol] Allergy Rash Verified 03/26/17 18:16 oxycodone AdvReac Nausea Verified 03/26/17 18:16 tramadol AdvReac Nausea Verified 03/26/17 18:16 Home Meds: Home Meds Ondansetron [Zofran ODT] 4 mg PO Q6H PRN 07/03/16 [History] Morphine [MS Contin] 30 mg PO TID 02/05/17 [History] Prochlorperazine [Compazine] 25 mg PO Q8H PRN 03/26/17 [History] Past Medical History HEENT History: Reports: Head, Other (See Below) Other HEENT History: brain tumor Respiratory History: Reports: Pneumothorax Other Respiratory History: bilateral Musculoskeletal History: Reports: Fracture Neurological History: Reports: Brain Injury, Concussion, Head Trauma, Migraines Other Neuro History: 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 Immunologic History: Reports: Immunosuppression Other Immunologic History: radiation therapy Oncologic (Cancer) History: Reports: Brain Other Oncologic History: Finished 6 weeks of radiation therapy for brain cancer on monday07/01/16 - Infectious Disease History Infectious Disease History: Reports: Chicken Pox - Past Surgical History Head Surgeries/Procedures: Reports: Craniotomy Other HEENT Surgeries/Procedures: surgery brain tumor Musculoskeletal Surgical History: Reports: Other (See Below) Other Musculoskeletal Surgeries/Procedures:: left knee Oncologic Surgical History: Reports: Other (See Below) Other Oncologic Surgeries/Procedures: radiation therapy done Dermatological Surgical History: Reports: None Social & Family History - Family History Family Medical History: Noncontributory - Tobacco Use Smoking Status *Q: Never Smoker Years of Tobacco use: 1 Packs/Tins Daily: 0.5 Used Tobacco, but Quit: Yes Month Tobacco Last Used: september Second Hand Smoke Exposure: No - Caffeine Use Caffeine Use: Reports: Coffee Other Caffeine Use: one a day - Recreational Drug Use Recreational Drug Use: No ED ROS GENERAL - Review of Systems Review Of Systems: See Below Constitutional: Reports: Fever, Chills HEENT: Reports: No Symptoms Respiratory: Reports: No Symptoms Cardiovascular: Reports: No Symptoms GI/Abdominal: Reports: Nausea, Vomiting. Denies: Abdominal Pain : Reports: No Symptoms Musculoskeletal: Reports: No Symptoms Skin: Reports: No Symptoms Neurological: Reports: Headache ED EXAM, GENERAL - Physical Exam Exam: See Below Free Text/Narrative:: General: Male, ill-appearing, alert and oriented x3 HEENT: head is atraumatic normocephalic, eyes pupils equal round reactive to light, sclera clear no conjunctivitis appreciated. Ears tympanic membranes clear and spaulding landmarks and light reflex are present bilaterally canals are clear. Nose no septal deviation, nares are clear, no blood present. Mouth mucosa is moist and pink no erythema or exudate noted in soft palate, tongue is midline uvula is midline , dentition is intact. Can place his head on his chest without difficulty Neck: Supple no thyromegaly no tracheal deviation. Nodes: Cervical nodes subclavicular nodes nontender no palpable lymphadenopathy noted. Lungs: clear to auscultation bilaterally with symmetrical respirations, no adventitious noise appreciated. CV: Regular rate and rhythm S1 and S2 appreciated no murmurs rubs or gallops noted. Abdomen: Soft, nontender, no palpable masses or organomegaly appreciated, no distention no guarding bowel sounds are present, . Neuro: Cranial nerves II through XII grossly intact Course - Vital Signs Last Recorded V/S: Last Vital Signs Temp 103.3 F H 03/26/17 17:54 Pulse 60 03/26/17 18:14 Resp 18 03/26/17 18:14 BP 138/84 03/26/17 18:14 Pulse Ox 100 03/26/17 18:14 - Orders/Labs/Meds Orders: Active Orders 24 hr Category Date Time Status Vital Signs [RC] Q1H Care 03/26/17 18:42 Active CULTURE BLOOD [BC] Urgent Lab 03/26/17 18:50 Received CULTURE BLOOD [BC] Urgent Lab 03/26/17 19:00 Received UA W/MICROSCOPIC [URIN] Urgent Lab 03/26/17 18:42 Uncollected Blood Culture x2 Reflex Set [OM.PC] Urgent Oth 03/26/17 18:42 Ordered Labs: Laboratory Tests 03/26/17 03/26/17 03/26/17 Range/Units 18:50 18:50 18:50 WBC 13.8 H (4.5-11.0) K/uL RBC 5.39 (4.30-5.90) M/uL Hgb 15.2 H (12.0-15.0) g/dL Hct 45.2 (40.0-54.0) % MCV 84 (80-98) fL MCH 28 (27-31) pg MCHC 34 (32-36) % Plt Count 288 (150-400) K/uL Neut % (Auto) 85 H (36-66) % Lymph % (Auto) 11 L (24-44) % [place] % (Auto) 4 (2-6) % Eos % (Auto) 0 L (2-4) % Baso % (Auto) 0 (0-1) % Sodium 142 (140-148) mmol/L Potassium 3.5 L (3.6-5.2) mmol/L Chloride 103 (100-108) mmol/L Carbon Dioxide 28 (21-32) mmol/L Anion Gap 14.5 H (5.0-14.0) mmol/L BUN 13 (7-18) mg/dL Creatinine 1.0 (0.8-1.3) mg/dL Est Cr Clr Drug Dosing 119.17 mL/min Estimated GFR (MDRD) > 60 (>60) Glucose 111 H (74-106) mg/dL Lactic Acid 2.8 H (0.4-2.0) mmol/L Calcium 10.0 (8.5-10.1) mg/dL Total Bilirubin 1.1 H (0.2-1.0) mg/dL AST 17 (15-37) U/L ALT 29 (12-78) U/L Alkaline Phosphatase 77 (46-116) U/L C-Reactive Protein 0.42 H (0.0-0.3) mg/dL Total Protein 8.1 (6.4-8.2) g/dL Albumin 5.0 (3.4-5.0) g/dL Globulin 3.1 (2.3-3.5) g/dL Albumin/Globulin Ratio 1.6 (1.2-2.2) Meds: Medications Discontinued Medications Generic Name Dose Route Start Last Admin Trade Name Freq PRN Reason Stop Dose Admin Hydromorphone HCl 1 mg 03/26/17 18:43 03/26/17 18:58 Dilaudid IVPUSH 03/26/17 18:44 1 mg ONETIME ONE Administration Hydromorphone HCl 1 mg 03/26/17 19:55 03/26/17 20:01 Dilaudid IVPUSH 03/26/17 19:56 1 mg ONETIME ONE Administration Lactated Ringer's 1,000 mls @ 999 mls/hr 03/26/17 18:43 03/26/17 18:51 Ringers, Lactated IV 03/26/17 19:43 999 mls/hr BOLUS ONE Administration Ibuprofen 600 mg 03/26/17 19:53 03/26/17 19:59 Motrin PO 03/26/17 19:54 600 mg ONETIME ONE Administration Ondansetron HCl 4 mg 03/26/17 18:29 03/26/17 18:55 Zofran IVPUSH 03/26/17 18:30 4 mg ONETIME ONE Administration Prochlorperazine Edisylate 5 mg 03/26/17 18:43 03/26/17 18:52 Compazine IVPUSH 03/26/17 18:44 5 mg ONETIME ONE Administration Prochlorperazine Edisylate 5 mg 03/26/17 18:53 03/26/17 18:55 Compazine IVPUSH 03/26/17 18:54 5 mg ONETIME ONE Administration Departure - Departure Time of Disposition: 20:49 Disposition: Home, Self-Care 01 Condition: Fair Clinical Impression: Craniopharyngioma, Headache due to intracranial disease - Discharge Information Referrals: PCP,None [Primary Care Provider] - Forms: ED Department Discharge Additional Instructions: Continue regular medications, please keep your follow-up appointment with your cancer care team - My Orders Last 24 Hours: My Active Orders 03/26/17 18:42 Vital Signs [RC] Q1H UA W/MICROSCOPIC [URIN] Urgent Blood Culture x2 Reflex Set [OM.PC] Urgent 03/26/17 18:50 CULTURE BLOOD [BC] Urgent 03/26/17 19:00 CULTURE BLOOD [BC] Urgent - Assessment/Plan Last 24 Hours: My Active Orders 03/26/17 18:42 Vital Signs [RC] Q1H UA W/MICROSCOPIC [URIN] Urgent Blood Culture x2 Reflex Set [OM.PC] Urgent 03/26/17 18:50 CULTURE BLOOD [BC] Urgent 03/26/17 19:00 CULTURE BLOOD [BC] Urgent Plan: Assessment Acuity = acute Site and laterality = headache comp came the patient with history of suprasellar craniopharyngioma Etiology = unclear etiology Manifestations = fever, nausea and vomiting Location of injury = Home Lab values = WBC elevated at 13.8 consistent leukocytosis CMP unremarkable lactic acid elevated 2.8 consistent lactic acidosis, influenza A and B- Plan He had significant relief combination Compazine, Zofran and Dilaudid fever resolution with Motrin plan is to discharge to home he has a follow-up with his cancer care team this week This note was dictated using [employer] voice recognition software please call with any questions on syntax or stella.
[2017-03-26] MEDS ORDERED: Ibuprofen 600 MG Tab PO ONE (19:53)
== END 2017-03-26 21:06 | disposition home or self-care (01) ==
LOC: JP.ED 17:40
DX: D44.4 Neoplasm of uncertain behavior of craniopharyngeal duct (principal); Z88.8 Allergy status to other drugs, medicaments and biological substances; Z88.5 Allergy status to narcotic agent
CPT/HCPCS: 36415; 80053; 83605; 85025; 86140; 87040; 87804; 96361; 96374; 96375; 96376; 99284; A9270; J0780; J1170; J2405; J7120

== ENCOUNTER 2017-03-27 05:27 | Emergency (ER) | payer MEDICAID ==
[2017-03-27] MEDS ORDERED: Sodium Chloride 0.9% 10 ML Syringe FLUSH PRN (05:59)
[2017-03-27] MEDS ORDERED: diphenhydrAMINE 50 MG/ML SDV IVPUSH ONE (05:59)
[2017-03-27] MEDS ORDERED: HYDROmorphone 1 MG/ML Syringe IVPUSH ONE (05:59)
[2017-03-27] MEDS ORDERED: Prochlorperazine 10 MG/2 ML SDV IVPUSH ONE (05:59)
[2017-03-27] MEDS ORDERED: Sodium Chloride 0.9% 1,000 ML IV SCH (06:00)
--- NOTE | 2017-03-27 06:03 | EDM.PDOC ---
<OfficerRafi - Last Filed: 03/27/17 06:00> ED HPI GENERAL MEDICAL PROBLEM - General Chief Complaint: Headache Stated Complaint: HEADACHE / VOMITING Time Seen by Provider: 03/27/17 05:55 Source of Information: Reports: Patient, Family, RN Notes Reviewed History Limitations: Reports: No Limitations - History of Present Illness INITIAL COMMENTS - FREE TEXT/NARRATIVE: 31-year-old gentleman presents emergency department day complaint of headache nausea and vomiting I had the opportunity to evaluate him earlier in the shift for same complaint he had significant improvement after treatment he did have a fever earlier in the shift he states he did well 1 home but unfortunately again woke up early this morning nausea and vomiting headache has returned headache Pain Score (Numeric/FACES): 10 - Related Data Allergies Allergy/AdvReac Type Severity Reaction Status Date / Time haloperidol [From Haldol] Allergy Rash Verified 03/26/17 18:16 oxycodone AdvReac Nausea Verified 03/26/17 18:16 tramadol AdvReac Nausea Verified 03/26/17 18:16 Home Meds: Home Meds Ondansetron [Zofran ODT] 4 mg PO Q6H PRN 07/03/16 [History] Morphine [MS Contin] 30 mg PO TID 02/05/17 [History] Prochlorperazine [Compazine] 25 mg PO Q8H PRN 03/26/17 [History] Past Medical History HEENT History: Reports: Head, Other (See Below) Other HEENT History: brain tumor Respiratory History: Reports: Pneumothorax Other Respiratory History: bilateral Musculoskeletal History: Reports: Fracture Neurological History: Reports: Brain Injury, Concussion, Head Trauma, Migraines Other Neuro History: 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 Immunologic History: Reports: Immunosuppression Other Immunologic History: radiation therapy Oncologic (Cancer) History: Reports: Brain Other Oncologic History: Finished 6 weeks of radiation therapy for brain cancer on monday07/01/16 - Infectious Disease History Infectious Disease History: Reports: Chicken Pox - Past Surgical History Head Surgeries/Procedures: Reports: Craniotomy Other HEENT Surgeries/Procedures: surgery brain tumor Musculoskeletal Surgical History: Reports: Other (See Below) Other Musculoskeletal Surgeries/Procedures:: left knee Oncologic Surgical History: Reports: Other (See Below) Other Oncologic Surgeries/Procedures: radiation therapy done Social & Family History - Family History Family Medical History: Noncontributory - Tobacco Use Smoking Status *Q: Never Smoker Years of Tobacco use: 1 Packs/Tins Daily: 0.5 Used Tobacco, but Quit: Yes Month Tobacco Last Used: september Second Hand Smoke Exposure: No - Caffeine Use Caffeine Use: Reports: Coffee Other Caffeine Use: one a day - Recreational Drug Use Recreational Drug Use: No ED ROS GENERAL - Review of Systems Review Of Systems: See Below Constitutional: Reports: Fever (Yesterday not today) HEENT: Reports: Eye Pain Respiratory: Reports: No Symptoms Cardiovascular: Reports: No Symptoms GI/Abdominal: Reports: Nausea, Vomiting : Reports: No Symptoms Musculoskeletal: Reports: No Symptoms Skin: Reports: No Symptoms Neurological: Reports: No Symptoms ED EXAM, HEAD INJURY - Physical Exam Exam: See Below Exam Limited By: No Limitations General Appearance: Alert, Mild Distress Head: Atraumatic, Normocephalic Eyes: Bilateral Eye: Normal Fundi, Normal Inspection Neck: Non-Tender, Full Range of Motion, Other (Can place his chin on his chest without difficulty) Respiratory: No Respiratory Distress, Lungs Clear Cardiovascular: Regular Rate, Rhythm, No Murmur Course - Vital Signs Last Recorded V/S: Last Vital Signs Temp 99.6 F 03/27/17 05:45 Pulse 66 03/27/17 07:43 Resp 16 03/27/17 07:43 BP 127/81 03/27/17 07:43 Pulse Ox 97 03/27/17 07:43 - Orders/Labs/Meds Orders: Active Orders 24 hr Category Date Time Status Peripheral IV Care [RC] . DIRECTED Care 03/27/17 06:00 Active Peripheral IV Insertion Adult [OM.PC] Urgent Oth 03/27/17 05:59 Ordered Meds: Medications Discontinued Medications Generic Name Dose Route Start Last Admin Trade Name Freq PRN Reason Stop Dose Admin Diphenhydramine HCl 50 mg 03/27/17 05:59 03/27/17 06:16 Benadryl IVPUSH 03/27/17 06:00 50 mg ONETIME ONE Administration Hydromorphone HCl 1 mg 03/27/17 05:59 03/27/17 06:16 Dilaudid IVPUSH 03/27/17 06:00 1 mg ONETIME ONE Administration Sodium Chloride 1,000 mls @ 999 mls/hr 03/27/17 06:00 03/27/17 06:15 Normal Saline IV 999 mls/hr ASDIRECTED JADEN Administration Morphine Sulfate 30 mg 03/27/17 06:29 03/27/17 06:52 Ms Contin PO 03/27/17 06:30 30 mg NOW STA Administration Prochlorperazine Edisylate 5 mg 03/27/17 05:59 03/27/17 06:16 Compazine IVPUSH 03/27/17 06:00 5 mg ONETIME ONE Administration Sodium Chloride 10 ml 03/27/17 05:59 03/27/17 06:22 Saline Flush FLUSH 10 ml ASDIRECTED PRN Administration Keep Vein Open Departure - Departure Disposition: Home, Self-Care 01 Clinical Impression: Headache due to intracranial disease - Discharge Information Instructions: Recurrent Migraine Headache, [id number] Referrals: PCP,None [Primary Care Provider] - Forms: ED Department Discharge Care Plan Goals: Rest today, continue your regular medications and advance diet and activity as tolerated. <Norberto Blas - Last Filed: 03/27/17 07:50> Course - Re-Assessments/Exams Free Text/Narrative Re-Assessment/Exam: 03/27/17 07:34 Patient seen and treated by Officer. He improved with the medical treatment , nausea improved to the point where he feels he can take his own medications. He is going to recheck on as scheduled. Departure - Departure Time of Disposition: 07:44 Condition: Fair
[2017-03-27] MEDS ORDERED: Morphine 30 MG Tab.ER PO STA (06:29)
[2017-03-27 07:43] VITALS: BP 127/81
== END 2017-03-27 07:44 | disposition home or self-care (01) ==
LOC: JP.ED 05:27
DX: R51 Headache (principal); Z88.5 Allergy status to narcotic agent; Z88.8 Allergy status to other drugs, medicaments and biological substances
CPT/HCPCS: 96361; 96374; 96375; 99284; A9270; J0780; J1170; J1200; J7040; J7050

== ENCOUNTER 2017-04-18 02:47 | Emergency (ER) | payer MEDICAID ==
[2017-04-18 03:03] VITALS: BP 139/77
[2017-04-18] MEDS ORDERED: diphenhydrAMINE 50 MG/ML SDV IM ONE (03:27)
[2017-04-18] MEDS ORDERED: HYDROmorphone 1 MG/ML Syringe IM ONE (03:27)
[2017-04-18] MEDS ORDERED: Promethazine 25 MG/ML SDV IM ONE (03:27)
--- NOTE | 2017-04-18 03:34 | EDM.PDOC ---
ED HPI GENERAL MEDICAL PROBLEM - General Chief Complaint: Headache Stated Complaint: BRAIN TUMOR HEADACHE Time Seen by Provider: 04/18/17 03:14 Headache Pain Score (Numeric/FACES): 9 - Related Data Allergies Allergy/AdvReac Type Severity Reaction Status Date / Time haloperidol [From Haldol] Allergy Rash Verified 03/26/17 18:16 oxycodone AdvReac Nausea Verified 03/26/17 18:16 tramadol AdvReac Nausea Verified 03/26/17 18:16 Home Meds: Home Meds Ondansetron [Zofran ODT] 4 mg PO Q6H PRN 07/03/16 [History] Morphine [MS Contin] 30 mg PO TID 02/05/17 [History] Prochlorperazine [Compazine] 25 mg PO Q8H PRN 03/26/17 [History] Past Medical History HEENT History: Reports: Head, Other (See Below) Other HEENT History: brain tumor Respiratory History: Reports: Pneumothorax Other Respiratory History: bilateral Musculoskeletal History: Reports: Fracture Neurological History: Reports: Brain Injury, Concussion, Head Trauma, Migraines Other Neuro History: 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 Immunologic History: Reports: Immunosuppression Other Immunologic History: radiation therapy Oncologic (Cancer) History: Reports: Brain Other Oncologic History: Finished 6 weeks of radiation therapy for brain cancer on monday07/01/16 - Infectious Disease History Infectious Disease History: Reports: Chicken Pox - Past Surgical History Head Surgeries/Procedures: Reports: Craniotomy Other HEENT Surgeries/Procedures: surgery brain tumor Musculoskeletal Surgical History: Reports: Other (See Below) Other Musculoskeletal Surgeries/Procedures:: left knee Oncologic Surgical History: Reports: Other (See Below) Other Oncologic Surgeries/Procedures: radiation therapy done Dermatological Surgical History: Reports: None Social & Family History - Family History Family Medical History: Noncontributory - Tobacco Use Smoking Status *Q: Never Smoker Years of Tobacco use: 1 Packs/Tins Daily: 0.5 Used Tobacco, but Quit: Yes Month Tobacco Last Used: september Second Hand Smoke Exposure: No - Caffeine Use Caffeine Use: Reports: Coffee, Energy Drinks, Soda Other Caffeine Use: one a day - Recreational Drug Use Recreational Drug Use: No Course - Vital Signs Last Recorded V/S: Last Vital Signs Temp 36.7 C 04/18/17 03:03 Pulse 56 L 04/18/17 03:03 Resp 16 04/18/17 03:03 BP 139/77 04/18/17 03:03 Pulse Ox 100 04/18/17 03:03 - Orders/Labs/Meds Meds: Medications Discontinued Medications Generic Name Dose Route Start Last Admin Trade Name Pedro PRN Reason Stop Dose Admin Diphenhydramine HCl 50 mg 04/18/17 03:27 04/18/17 03:33 Benadryl IM 04/18/17 03:28 50 mg ONETIME ONE Administration Hydromorphone HCl 1 mg 04/18/17 03:27 04/18/17 03:33 Dilaudid IM 04/18/17 03:28 1 mg ONETIME ONE Administration Promethazine HCl 25 mg 04/18/17 03:27 04/18/17 03:33 Phenergan IM 04/18/17 03:28 25 mg ONETIME ONE Administration Departure - Departure Time of Disposition: 05:30 Disposition: Home, Self-Care 01 Clinical Impression: Recurrent headache - Discharge Information Instructions: Recurrent Migraine Headache Referrals: PCP,None [Primary Care Provider] - Forms: ED Department Discharge Additional Instructions: Please contact your physicians if you have continuing headache Return to emergency if you have headache with high fever or with vomiting
--- NOTE | 2017-04-18 03:44 | EDM.PDOC ---
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 in [place] Reports headache since yesterday, nausea yesterday afternoon because he did not take his afternoon medicine. No longer has any nausea but did not take his afternoon/evening dose of medication because he was concerned he might cause nausea and then vomiting to occur. Because of recurrent headaches with vomiting, he states he is running out of his pain medication for a month Has had frequent visits to emergency in the past for recurrent headaches, at some points he is getting rather large doses of opiates in the obvious concern was that may have been some tolerance and withdrawal headaches as well as the potential for addiction. Continues to be on large doses of opiates, but is to emergency have decreased. No difficulties walking No fever No vomiting No difficulties breathing Headache Pain Score (Numeric/FACES): 9 - Related Data Allergies Allergy/AdvReac Type Severity Reaction Status Date / Time haloperidol [From Haldol] Allergy Rash Verified 03/26/17 18:16 oxycodone AdvReac Nausea Verified 03/26/17 18:16 tramadol AdvReac Nausea Verified 03/26/17 18:16 Home Meds: Home Meds Ondansetron [Zofran ODT] 4 mg PO Q6H PRN 07/03/16 [History] Morphine [MS Contin] 30 mg PO TID 02/05/17 [History] Prochlorperazine [Compazine] 25 mg PO Q8H PRN 03/26/17 [History] Past Medical History HEENT History: Reports: Head, Other (See Below) Other HEENT History: brain tumor Respiratory History: Reports: Pneumothorax Other Respiratory History: bilateral Musculoskeletal History: Reports: Fracture Neurological History: Reports: Brain Injury, Concussion, Head Trauma, Migraines Other Neuro History: 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 Immunologic History: Reports: Immunosuppression Other Immunologic History: radiation therapy Oncologic (Cancer) History: Reports: Brain Other Oncologic History: Finished 6 weeks of radiation therapy for brain cancer on monday07/01/16 - Infectious Disease History Infectious Disease History: Reports: Chicken Pox - Past Surgical History Head Surgeries/Procedures: Reports: Craniotomy Other HEENT Surgeries/Procedures: surgery brain tumor Musculoskeletal Surgical History: Reports: Other (See Below) Other Musculoskeletal Surgeries/Procedures:: left knee Oncologic Surgical History: Reports: Other (See Below) Other Oncologic Surgeries/Procedures: radiation therapy done Dermatological Surgical History: Reports: None Social & Family History - Family History Family Medical History: Noncontributory - Tobacco Use Smoking Status *Q: Never Smoker Years of Tobacco use: 1 Packs/Tins Daily: 0.5 Used Tobacco, but Quit: Yes Month Tobacco Last Used: september Second Hand Smoke Exposure: No - Caffeine Use Caffeine Use: Reports: Coffee, Energy Drinks, Soda Other Caffeine Use: one a day - Recreational Drug Use Recreational Drug Use: No ED ROS GENERAL - Review of Systems Review Of Systems: See Below Constitutional: Reports: No Symptoms HEENT: Reports: No Symptoms Respiratory: Reports: No Symptoms Cardiovascular: Reports: No Symptoms GI/Abdominal: Reports: Nausea. Denies: Abdominal Pain, Vomiting Musculoskeletal: Reports: No Symptoms Skin: Reports: No Symptoms Neurological: Reports: Headache. Denies: Confusion, Trouble Speaking, Difficulty Walking, Change in Speech, Gait Disturbance Psychiatric: Reports: No Symptoms - Physical Exam Exam: See Below Exam Limited By: No Limitations General Appearance: Alert, No Apparent Distress, Other (Vital signs are normal, he appears well apart from some evident photophobia) Eye Exam: Bilateral Eye: EOMI, Normal Inspection Ears: Normal External Exam, Hearing Grossly Normal Nose: Normal Inspection Throat/Mouth: Normal Inspection, Normal Oropharynx Head Exam: Atraumatic Neck: Normal Inspection, Supple Respiratory/Chest: No Respiratory Distress, No Accessory Muscle Use Cardiovascular: Normal Peripheral Pulses, Regular Rate, Rhythm Neuro Exam (Abbreviated): Alert, Oriented, Normal Cognition, Normal Gait, No Motor/Sensory Deficits Extremities: Normal Inspection Skin Exam: Warm, Dry, Normal Color, No Rash Comments: Appears well and nontoxic, no evidence of dehydration Course - Vital Signs Last Recorded V/S: Last Vital Signs Temp 36.7 C 04/18/17 03:03 Pulse 56 L 04/18/17 03:03 Resp 16 04/18/17 03:03 BP 139/77 04/18/17 03:03 Pulse Ox 100 04/18/17 03:03 - Orders/Labs/Meds Meds: Medications Discontinued Medications Generic Name Dose Route Start Last Admin Trade Name Pedro PRFernando Reason Stop Dose Admin Diphenhydramine HCl 50 mg 04/18/17 03:27 04/18/17 03:33 Benadryl IM 04/18/17 03:28 50 mg ONETIME ONE Administration Hydromorphone HCl 1 mg 04/18/17 03:27 04/18/17 03:33 Dilaudid IM 04/18/17 03:28 1 mg ONETIME ONE Administration Promethazine HCl 25 mg 04/18/17 03:27 04/18/17 03:33 Phenergan IM 04/18/17 03:28 25 mg ONETIME ONE Administration - Re-Assessments/Exams Free Text/Narrative Re-Assessment/Exam: 04/18/17 03:39 31-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 Presents with headache since yesterday Examination reassuring Patient does not appear ill Ostensibly opiates not needed or indicated However he is on regular opiates and concern is since his last dose was yesterday morning, he may develop withdrawal symptoms Patient reports that he was reluctant to take his medications as they can exacerbate nausea when he has a headache, did have nausea yesterday but none now , questionable as to why he chose this time to come in Since he hasn't vomited since the onset of this headache, IV fluids are not indicated not dehydrated Intramuscular hydromorphone 1 mg, Phenergan 25 mg, Benadryl 50 mg Departure - Departure Time of Disposition: 04:00 Disposition: Home, Self-Care 01 Condition: Good Clinical Impression: Recurrent headache - Discharge Information Instructions: Recurrent Migraine Headache Referrals: PCP,None [Primary Care Provider] - Forms: ED Department Discharge Additional Instructions: Please contact your physicians if you have continuing headache Return to emergency if you have headache with high fever or with vomiting
== END 2017-04-18 04:15 | disposition home or self-care (01) ==
LOC: JP.ED 02:47
DX: R51 Headache (principal); Z88.8 Allergy status to other drugs, medicaments and biological substances; Z88.5 Allergy status to narcotic agent; Z79.899 Other long term (current) drug therapy; Z87.891 Personal history of nicotine dependence
CPT/HCPCS: 96372; 99284; J1170; J1200; J2550

== ENCOUNTER 2017-10-15 20:06 | Emergency (ER) | payer MEDICAID ==
[2017-10-15] MEDS ORDERED: Lactated Ringers 1,000 ML IV ONE (21:03)
[2017-10-15] MEDS ORDERED: HYDROmorphone 1 MG/ML Syringe IVPUSH ONE ×2 (21:04→22:00)
[2017-10-15] MEDS ORDERED: diphenhydrAMINE 50 MG/ML SDV IVPUSH ONE (21:04)
[2017-10-15] MEDS ORDERED: Sodium Chloride 0.9% 10 ML Syringe FLUSH PRN (21:04)
[2017-10-15] MEDS ORDERED: LORazepam 2 MG/ML SDV IVPUSH ONE (21:04)
--- NOTE | 2017-10-15 21:12 | EDM.PDOC ---
ED HPI GENERAL MEDICAL PROBLEM - General Chief Complaint: Headache Stated Complaint: COMPLICATIONS FROM BRAIN TUMOR Time Seen by Provider: 10/15/17 21:10 Source of Information: Reports: Patient, Family, RN Notes Reviewed History Limitations: Reports: No Limitations - History of Present Illness INITIAL COMMENTS - FREE TEXT/NARRATIVE: 32-year-old gentleman presents emergency department day complaint of headache, he has a known history of craniopharyngioma status post radiation therapy he does get periodic headaches from time to time. He states this headache feels similar to prior headaches but he has a new feature where the pain is located in the back of his head as well. He has no nausea no photophobia he is able to place his chin on his chest without difficulty Treatments DIRECTOR OF AUDIOLOGY: Reports: NSAIDS, Other (see below) Other Treatments DIRECTOR OF AUDIOLOGY: MS contin, dilaudid base of head Pain Score (Numeric/FACES): 8 - Related Data Allergies Allergy/AdvReac Type Severity Reaction Status Date / Time haloperidol [From Haldol] Allergy Rash Verified 10/15/17 20:35 oxycodone AdvReac Nausea Verified 10/15/17 20:35 tramadol AdvReac Nausea Verified 10/15/17 20:35 Home Meds: Home Meds Ondansetron [Zofran ODT] 8 mg PO Q6H PRN 07/03/16 [History] Morphine [MS Contin] 60 mg PO BID 02/05/17 [History] Gabapentin [Neurontin] 300 mg PO BID 09/09/17 [History] HYDROmorphone [Dilaudid] 2 tab PO Q4HR PRN 09/09/17 [History] LORazepam 1 tab PO TID PRN 09/09/17 [History] OLANZapine [ZyPREXA] 10 mg PO DAILY 09/11/17 [History] DULoxetine [Cymbalta] 60 mg PO DAILY 10/15/17 [History] Past Medical History HEENT History: Reports: Head, Other (See Below) Other HEENT History: brain tumor Respiratory History: Reports: Pneumothorax Other Respiratory History: bilateral Musculoskeletal History: Reports: Fracture Neurological History: Reports: Brain Injury, Concussion, Head Trauma, Migraines Other Neuro History: 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 Immunologic History: Reports: Immunosuppression Other Immunologic History: radiation therapy Oncologic (Cancer) History: Reports: Brain Other Oncologic History: Finished 6 weeks of radiation therapy for brain cancer on monday07/01/16 - Infectious Disease History Infectious Disease History: Reports: Chicken Pox - Past Surgical History Head Surgeries/Procedures: Reports: Craniotomy Other HEENT Surgeries/Procedures: surgery brain tumor Musculoskeletal Surgical History: Reports: Other (See Below) Other Musculoskeletal Surgeries/Procedures:: left knee acl reconstruction Oncologic Surgical History: Reports: Other (See Below) Other Oncologic Surgeries/Procedures: radiation therapy done Social & Family History - Family History Family Medical History: Noncontributory - Tobacco Use Smoking Status *Q: Never Smoker - Caffeine Use Caffeine Use: Reports: Coffee, Energy Drinks Other Caffeine Use: one a day - Recreational Drug Use Recreational Drug Use: No ED ROS GENERAL - Review of Systems Review Of Systems: See Below Constitutional: Denies: Fever, Chills HEENT: Reports: No Symptoms Respiratory: Reports: No Symptoms Cardiovascular: Reports: No Symptoms GI/Abdominal: Reports: No Symptoms Neurological: Reports: Headache - Physical Exam Exam: See Below Exam Limited By: No Limitations General Appearance: Alert, WD/WN, No Apparent Distress Eye Exam: Bilateral Eye: Normal Inspection Respiratory/Chest: No Respiratory Distress, Lungs Clear, Normal Breath Sounds, No Accessory Muscle Use Cardiovascular: Regular Rate, Rhythm, No Murmur Course - Vital Signs Last Recorded V/S: Last Vital Signs Temp 96.6 F 10/15/17 22:14 Pulse 70 10/15/17 22:14 Resp 15 10/15/17 22:14 BP 112/75 10/15/17 22:14 Pulse Ox 98 10/15/17 22:14 - Orders/Labs/Meds Orders: Active Orders 24 hr Category Date Time Status Peripheral IV Care [RC] . DIRECTED Care 10/15/17 21:04 Active Sodium Chloride 0.9% [Saline Flush] Med 10/15/17 21:04 Active 10 ml FLUSH ASDIRECTED PRN Peripheral IV Insertion Adult [OM.PC] Urgent Oth 10/15/17 21:03 Ordered Medication Orders Sodium Chloride (Saline Flush) 10 ml FLUSH ASDIRECTED PRN PRN Reason: Keep Vein Open Last Admin: 10/15/17 21:26 Dose: 10 ml Meds: Medications Generic Name Dose Route Start Last Admin Trade Name Freq PRN Reason Stop Dose Admin Sodium Chloride 10 ml 10/15/17 21:04 10/15/17 21:26 Saline Flush FLUSH 10 ml ASDIRECTED PRN Administration Keep Vein Open Discontinued Medications Generic Name Dose Route Start Last Admin Trade Name Pedro PRN Reason Stop Dose Admin Diphenhydramine HCl 50 mg 10/15/17 21:04 10/15/17 21:23 Benadryl IVPUSH 10/15/17 21:05 50 mg ONETIME ONE Administration Fentanyl 100 mcg 10/15/17 23:32 10/15/17 23:50 Sublimaze IVPUSH 10/15/17 23:33 100 mcg ONETIME ONE Administration Hydromorphone HCl 1 mg 10/15/17 21:04 10/15/17 21:32 Dilaudid IVPUSH 10/15/17 21:05 1 mg ONETIME ONE Administration Hydromorphone HCl 1 mg 10/15/17 22:00 10/15/17 22:10 Dilaudid IVPUSH 10/15/17 22:01 1 mg ONETIME ONE Administration Hydromorphone HCl 0.5 mg 10/15/17 23:22 10/16/17 00:05 Dilaudid IVPUSH 10/15/17 23:23 Not Given ONETIME ONE Lactated Ringer's 1,000 mls @ 999 mls/hr 10/15/17 21:03 10/15/17 21:14 Ringers, Lactated IV 10/15/17 22:03 999 mls/hr BOLUS ONE Administration Ketamine HCl 20 mg 10/15/17 23:23 10/16/17 00:05 Ketalar IV 10/15/17 23:24 Not Given NOW STA Lorazepam 1 mg 10/15/17 21:04 10/15/17 21:27 Ativan IVPUSH 10/15/17 21:05 1 mg ONETIME ONE Administration Departure - Departure Time of Disposition: 00:10 Disposition: Home, Self-Care 01 Condition: Fair Clinical Impression: Headache Head ache Qualifiers: Headache type: unspecified Headache chronicity pattern: acute headache Intractability: not intractable Qualified Code(s): R51 - Headache - Discharge Information Referrals: PCP,None [Primary Care Provider] - Forms: ED Department Discharge Additional Instructions: Resume your regular medications and keep your follow-up appointments with your physicians - My Orders Last 24 Hours: My Active Orders 10/15/17 21:03 Peripheral IV Insertion Adult [OM.PC] Urgent 10/15/17 21:04 Peripheral IV Care [RC] . DIRECTED Sodium Chloride 0.9% [Saline Flush] 10 ml FLUSH ASDIRECTED PRN - Assessment/Plan Last 24 Hours: My Active Orders 10/15/17 21:03 Peripheral IV Insertion Adult [OM.PC] Urgent 10/15/17 21:04 Peripheral IV Care [RC] . DIRECTED Sodium Chloride 0.9% [Saline Flush] 10 ml FLUSH ASDIRECTED PRN Plan: Assessment Acuity = acute Site and laterality = headache Etiology =possibly related to craniopharyngioma Manifestations =none Location of injury = Home Lab values =none Plan Combination 2 mg Dilaudid, 1 L fluids, 1 mg Ativan and 100 mics of fentanyl provided good relief keep his follow-up appointment with his primary care physician This note was dictated using [employer] voice recognition software please call with any questions on syntax or grammar.
[2017-10-15 22:17] VITALS: BP 112/75
[2017-10-15] MEDS ORDERED: HYDROmorphone 0.5 MG/0.5 ML Syringe IVPUSH ONE (23:22)
[2017-10-15] MEDS ORDERED: Ketamine 500 MG/5 ML MDV IV STA (23:23)
[2017-10-15] MEDS ORDERED: fentaNYL 100 MCG/2 ML SDV IVPUSH ONE (23:32)
== END 2017-10-16 00:28 | disposition home or self-care (01) ==
LOC: JP.ED 20:06
DX: R51 Headache (principal); Z88.8 Allergy status to other drugs, medicaments and biological substances; Z88.5 Allergy status to narcotic agent; Z79.899 Other long term (current) drug therapy
CPT/HCPCS: 96361; 96374; 96375; 96376; 99284; J1170; J1200; J2060; J3010; J7050; J7120

== ENCOUNTER 2017-10-24 04:54 | Emergency (ER) | payer MEDICAID ==
--- NOTE | 2017-10-24 05:27 | EDM.PDOC ---
ED HPI GENERAL MEDICAL PROBLEM - General Chief Complaint: Headache Stated Complaint: BRAIN TUMOR FLARE UP Time Seen by Provider: 10/24/17 05:18 Source of Information: Reports: Patient, Family, RN Notes Reviewed History Limitations: Reports: No Limitations - History of Present Illness INITIAL COMMENTS - FREE TEXT/NARRATIVE: 32-year-old gentleman presents to the emergency department today complaint of headache, he has been to the emergency department multiple times for the same complaint he has a known history of craniopharyngioma and is on chronic narcotic medications of Dilaudid every 4 hours 2 mg. I did review the letter written by the emergency room director which recommends no Dilaudid be provided to this patient and tell his primary care since up a plan of care for his frequent visits to the emergency department with complaint of headache. He does have an appointment for 04 November at [facility]. I have asked him to have them provide us with a plan of care. When I informed him that he would receive no narcotics he was in agreement with that but asked for something for his anxiety which he cannot settle down. temporal headache Pain Score (Numeric/FACES): 8 - Related Data Allergies Allergy/AdvReac Type Severity Reaction Status Date / Time haloperidol [From Haldol] Allergy Rash Verified 10/24/17 05:12 oxycodone AdvReac Nausea Verified 10/24/17 05:12 tramadol AdvReac Nausea Verified 10/24/17 05:12 Home Meds: Home Meds Ondansetron [Zofran ODT] 8 mg PO Q6H PRN 07/03/16 [History] Morphine [MS Contin] 60 mg PO BID 02/05/17 [History] Gabapentin [Neurontin] 300 mg PO BID 09/09/17 [History] HYDROmorphone [Dilaudid] 2 tab PO Q4HR PRN 09/09/17 [History] LORazepam 1 tab PO TID PRN 09/09/17 [History] OLANZapine [ZyPREXA] 10 mg PO DAILY 09/11/17 [History] DULoxetine [Cymbalta] 60 mg PO DAILY 10/15/17 [History] Past Medical History HEENT History: Reports: Head, Other (See Below) Other HEENT History: brain tumor Respiratory History: Reports: Pneumothorax Other Respiratory History: bilateral Musculoskeletal History: Reports: Fracture Neurological History: Reports: Brain Injury, Concussion, Head Trauma, Migraines Other Neuro History: 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 Immunologic History: Reports: Immunosuppression Other Immunologic History: radiation therapy Oncologic (Cancer) History: Reports: Brain Other Oncologic History: Finished 6 weeks of radiation therapy for brain cancer on monday07/01/16 - Infectious Disease History Infectious Disease History: Reports: Chicken Pox - Past Surgical History Head Surgeries/Procedures: Reports: Craniotomy Other HEENT Surgeries/Procedures: surgery brain tumor Musculoskeletal Surgical History: Reports: Other (See Below) Other Musculoskeletal Surgeries/Procedures:: left knee acl reconstruction Oncologic Surgical History: Reports: Other (See Below) Other Oncologic Surgeries/Procedures: radiation therapy done Dermatological Surgical History: Reports: None Social & Family History - Family History Family Medical History: Noncontributory - Tobacco Use Smoking Status *Q: Never Smoker - Caffeine Use Caffeine Use: Reports: Coffee, Energy Drinks Other Caffeine Use: one a day - Recreational Drug Use Recreational Drug Use: No ED ROS GENERAL - Review of Systems Review Of Systems: See Below Constitutional: Reports: No Symptoms HEENT: Reports: No Symptoms Respiratory: Reports: No Symptoms Cardiovascular: Reports: No Symptoms GI/Abdominal: Reports: No Symptoms : Reports: No Symptoms Musculoskeletal: Reports: No Symptoms Skin: Reports: No Symptoms Neurological: Reports: Headache Psychiatric: Reports: Anxiety ED EXAM, GENERAL - Physical Exam Exam: See Below Exam Limited By: No Limitations General Appearance: Alert, WD/WN, No Apparent Distress Eye Exam: Bilateral Eye: Normal Inspection Respiratory/Chest: No Respiratory Distress Neurological: Alert, Oriented, Normal Cognition, Normal Gait Psychiatric: Normal Affect, Normal Mood Course - Vital Signs Last Recorded V/S: Last Vital Signs Temp 98.9 F 10/24/17 05:16 Pulse 59 L 10/24/17 05:16 Resp 16 10/24/17 05:16 BP 130/74 10/24/17 05:16 Pulse Ox 99 10/24/17 05:16 - Orders/Labs/Meds Meds: Medications Discontinued Medications Generic Name Dose Route Start Last Admin Trade Name Freq PRN Reason Stop Dose Admin Lorazepam 2 mg 10/24/17 05:23 10/24/17 05:32 Ativan IM 10/24/17 05:24 2 mg ONETIME ONE Administration Departure - Departure Time of Disposition: 06:08 Disposition: Home, Self-Care 01 Condition: Fair Clinical Impression: Head ache Qualifiers: Headache type: unspecified Headache chronicity pattern: acute headache Intractability: not intractable Qualified Code(s): R51 - Headache - Discharge Information Referrals: PCP,None [Primary Care Provider] - Forms: ED Department Discharge Additional Instructions: Please follow-up with your primary care provider, call return to the emergency department worsening of symptoms - Assessment/Plan Plan: Assessment Acuity = acute on chronic Site and laterality = headache complicated in a patient with known craniopharyngioma Etiology = unknown Manifestations = none Location of injury = Home Lab values = none Plan He had good improvement with Ativan provided in emergency department, he is to keep his appointment with his primary care provider coming up next week This note was dictated using [employer] voice recognition software please call with any questions on syntax or grammar.
[2017-10-24] MEDS: LORazepam 2 MG/ML SDV IM ONE (05:32)
[2017-10-24 05:45] VITALS: BP 130/74
== END 2017-10-24 06:34 | disposition home or self-care (01) ==
LOC: JP.ED 04:54
DX: R51 Headache (principal); Z88.8 Allergy status to other drugs, medicaments and biological substances; Z88.5 Allergy status to narcotic agent; Z79.899 Other long term (current) drug therapy
CPT/HCPCS: 96372; 99284; J2060

== ENCOUNTER 2018-03-18 07:50 | Emergency (ER) | payer MEDICAID ==
[2018-03-18 09:00] VITALS: BP 132/83
--- NOTE | 2018-03-18 09:23 | EDM.PDOC ---
ED HPI GENERAL MEDICAL PROBLEM - General Chief Complaint: Headache Stated Complaint: HEAD PAIN HAS BRAIN CANCER Time Seen by Provider: 03/18/18 09:23 Source of Information: Reports: Patient History Limitations: Reports: No Limitations - History of Present Illness INITIAL COMMENTS - FREE TEXT/NARRATIVE: pt arrived stating that he had been doing well. He is off the large doses of dilaudid and uses morphine 60mg twice daily and he iuses dilaudid on a prn basis. He is being followed by Dr Mario Alberto Eaton at [facility]. His headache started yesterday and got progressively worse since that time. Onset: Other (pain started yesterday. ) Duration: Hour(s): Location: Reports: Head Associated Symptoms: Reports: Nausea/Vomiting Headache Pain Score (Numeric/FACES): 20 - Related Data Allergies Allergy/AdvReac Type Severity Reaction Status Date / Time haloperidol [From Haldol] Allergy Rash Verified 12/01/17 12:17 oxycodone AdvReac Nausea Verified 12/01/17 12:17 tramadol AdvReac Nausea Verified 12/01/17 12:17 Home Meds: Home Meds Ondansetron [Zofran ODT] 8 mg PO Q6H PRN 07/03/16 [History] Morphine [MS Contin] 60 mg PO BID 02/05/17 [History] HYDROmorphone [Dilaudid] 2 tab PO Q4HR PRN 09/09/17 [History] OLANZapine [ZyPREXA] 7.5 mg PO BID 09/11/17 [History] DULoxetine [Cymbalta] 60 mg PO DAILY 10/15/17 [History] Past Medical History HEENT History: Reports: Head, Other (See Below) Other HEENT History: brain tumor Respiratory History: Reports: Pneumothorax Other Respiratory History: bilateral Musculoskeletal History: Reports: Fracture Neurological History: Reports: Brain Injury, Concussion, Head Trauma, Migraines Other Neuro History: 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 Immunologic History: Reports: Immunosuppression Other Immunologic History: radiation therapy Oncologic (Cancer) History: Reports: Brain Other Oncologic History: Finished 6 weeks of radiation therapy for brain cancer on monday07/01/16 - Infectious Disease History Infectious Disease History: Reports: Chicken Pox - Past Surgical History Head Surgeries/Procedures: Reports: Craniotomy Other HEENT Surgeries/Procedures: surgery brain tumor Musculoskeletal Surgical History: Reports: Other (See Below) Other Musculoskeletal Surgeries/Procedures:: left knee acl reconstruction Oncologic Surgical History: Reports: Other (See Below) Other Oncologic Surgeries/Procedures: radiation therapy done Dermatological Surgical History: Reports: None Social & Family History - Family History Family Medical History: Noncontributory - Tobacco Use Smoking Status *Q: Never Smoker - Caffeine Use Caffeine Use: Reports: Coffee, Energy Drinks Other Caffeine Use: one a day - Recreational Drug Use Recreational Drug Use: No ED ROS GENERAL - Review of Systems Review Of Systems: See Below Constitutional: Reports: No Symptoms HEENT: Reports: No Symptoms Respiratory: Reports: No Symptoms Cardiovascular: Reports: No Symptoms Endocrine: Reports: No Symptoms GI/Abdominal: Reports: Nausea : Reports: No Symptoms Musculoskeletal: Reports: No Symptoms Skin: Reports: No Symptoms - Physical Exam Exam: See Below Text/Narrative:: pt arrived with a severe frontal headache. He is nauseated and has been using zoforan at home. He had 8 mg of zoforan at home. Exam Limited By: No Limitations General Appearance: Alert, Moderate Distress, Other (pupils are equal and reactive. ) Ears: Normal TMs Nose: Normal Inspection Throat/Mouth: Normal Inspection Head Exam: Atraumatic Neck: Normal Inspection Respiratory/Chest: No Respiratory Distress Cardiovascular: Regular Rate, Rhythm GI/Abdominal: Soft, Non-Tender Course - Vital Signs Last Recorded V/S: Last Vital Signs Temp 36.7 C 03/18/18 09:07 Pulse 104 H 03/18/18 09:07 Resp 14 03/18/18 09:07 BP 132/83 03/18/18 09:07 Pulse Ox 97 03/18/18 09:07 - Orders/Labs/Meds Meds: Medications Discontinued Medications Generic Name Dose Route Start Last Admin Trade Name Freq PRN Reason Stop Dose Admin Hydromorphone HCl 1 mg 03/18/18 09:22 03/18/18 09:39 Dilaudid IVPUSH 03/18/18 09:23 1 mg ONETIME ONE Administration Hydromorphone HCl 1 mg 03/18/18 10:08 03/18/18 10:12 Dilaudid IVPUSH 03/18/18 10:09 1 mg ONETIME ONE Administration Sodium Chloride 1,000 mls @ 500 mls/hr 03/18/18 09:30 03/18/18 09:43 Normal Saline IV 500 mls/hr ASDIRECTED JADEN Administration Lorazepam 0.5 mg 03/18/18 09:22 03/18/18 09:41 Ativan IVPUSH 03/18/18 09:23 0.5 mg ONETIME ONE Administration Prochlorperazine Edisylate 10 mg 03/18/18 09:21 03/18/18 09:40 Compazine IVPUSH 03/18/18 09:22 10 mg ONETIME ONE Administration - Re-Assessments/Exams Free Text/Narrative Re-Assessment/Exam: 03/18/18 10:35 pt was given compazinr, ativan and dilaudid 2mg total. He is comfortable at this time. Departure - Departure Time of Disposition: 10:27 Disposition: Home, Self-Care 01 Condition: Fair Clinical Impression: Headache, Craniopharyngioma - Discharge Information Instructions: Recurrent Migraine Headache Referrals: PCP,None [Primary Care Provider] - Forms: ED Department Discharge Care Plan Goals: rest continue with same pain control protocol.
[2018-03-18] MEDS: HYDROmorphone 1 MG/ML Syringe IVPUSH ONE ×2 (09:39→10:12)
[2018-03-18] MEDS: Prochlorperazine 10 MG/2 ML SDV IVPUSH ONE (09:40)
[2018-03-18] MEDS: LORazepam 2 MG/ML SDV IVPUSH ONE (09:41)
[2018-03-18] MEDS: Sodium Chloride 0.9% 1,000 ML IV SCH (09:43)
== END 2018-03-18 10:43 | disposition home or self-care (01) ==
LOC: JP.ED 07:50
DX: D44.4 Neoplasm of uncertain behavior of craniopharyngeal duct (principal); Z88.8 Allergy status to other drugs, medicaments and biological substances
CPT/HCPCS: 96361; 96374; 96375; 96376; 99284-25; J0780; J1170; J2060; J7030

== ENCOUNTER 2018-03-25 12:16 | Emergency (ER) | payer MEDICAID ==
[2018-03-25 13:39] VITALS: BP 131/81
--- NOTE | 2018-03-25 14:07 | EDM.PDOC ---
ED HPI GENERAL MEDICAL PROBLEM - General Chief Complaint: Headache Stated Complaint: HAS BRAIN CANCER;FLARE UP Time Seen by Provider: 03/25/18 13:50 Source of Information: Reports: Patient, Old Records, RN History Limitations: Reports: No Limitations - History of Present Illness INITIAL COMMENTS - FREE TEXT/NARRATIVE: 32 yo male with a pHx of brain CA presents alleging a ELDRIDGE. Was seen exactly one week ago on a Monday by Dr. Arrieta claiming ELDRIDGE refractory to the pain medications he has at home. He says his nausea is well controlled with his Zofran. No fever. No neurological deficits. No seizures. Reports good relief with the 2 mg of IV Dilaudid he got last Monday. Is followed at [facility] in the [facility]. Is also out of all of his oral meds for pain/nausea. Onset: Gradual Onset Date: 03/24/18 Duration: Hour(s):, Getting Worse Location: Reports: Head Quality: Reports: Ache Severity: Moderate Improves with: Reports: Medication Worsens with: Reports: Other (unknown) Context: Reports: Other (See HPI) Associated Symptoms: Reports: Headaches. 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 (see below) (Home meds including narcotics) Head Pain Score (Numeric/FACES): 8 - Related Data Allergies Allergy/AdvReac Type Severity Reaction Status Date / Time haloperidol [From Haldol] Allergy Rash Verified 03/25/18 13:43 oxycodone AdvReac Nausea Verified 03/25/18 13:43 tramadol AdvReac Nausea Verified 03/25/18 13:43 Home Meds: Home Meds Ondansetron [Zofran ODT] 8 mg PO Q6H PRN 07/03/16 [History] Morphine [MS Contin] 60 mg PO BID 02/05/17 [History] HYDROmorphone [Dilaudid] 2 tab PO Q4HR PRN 09/09/17 [History] OLANZapine [ZyPREXA] 7.5 mg PO BID 09/11/17 [History] DULoxetine [Cymbalta] 60 mg PO DAILY 10/15/17 [History] Past Medical History HEENT History: Reports: Head, Other (See Below) Other HEENT History: brain tumor Respiratory History: Reports: Pneumothorax Other Respiratory History: bilateral Musculoskeletal History: Reports: Fracture Neurological History: Reports: Brain Injury, Concussion, Head Trauma, Migraines Other Neuro History: 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 Immunologic History: Reports: Immunosuppression Other Immunologic History: radiation therapy Oncologic (Cancer) History: Reports: Brain Other Oncologic History: Finished 6 weeks of radiation therapy for brain cancer on monday07/01/16 - Infectious Disease History Infectious Disease History: Reports: Chicken Pox - Past Surgical History Head Surgeries/Procedures: Reports: Craniotomy Other HEENT Surgeries/Procedures: surgery brain tumor Musculoskeletal Surgical History: Reports: Other (See Below) Other Musculoskeletal Surgeries/Procedures:: left knee acl reconstruction Oncologic Surgical History: Reports: Other (See Below) Other Oncologic Surgeries/Procedures: radiation therapy done Social & Family History - Family History Family Medical History: Noncontributory - Tobacco Use Smoking Status *Q: Former Smoker Years of Tobacco use: 2 Packs/Tins Daily: 0.5 Used Tobacco, but Quit: Yes Month/Year Tobacco Last Used: unknown Second Hand Smoke Exposure: No - Caffeine Use Caffeine Use: Reports: Coffee, Energy Drinks Other Caffeine Use: 2 cups coffee per day. 2 energy drinks per day - Recreational Drug Use Recreational Drug Type: Reports: Marijuana/Hashish Other Recreational Drug Type: on RX marijuana settles me down when I get anxious. ED ROS GENERAL - Review of Systems Review Of Systems: See Below Constitutional: Reports: No Symptoms HEENT: Reports: No Symptoms Respiratory: Reports: No Symptoms Cardiovascular: Reports: No Symptoms GI/Abdominal: Reports: No Symptoms : Reports: No Symptoms Musculoskeletal: Reports: No Symptoms Skin: Reports: No Symptoms Neurological: Reports: Headache Psychiatric: Reports: No Symptoms - Physical Exam Exam: See Below Exam Limited By: No Limitations General Appearance: Alert, WD/WN, No Apparent Distress, Other (Wearing sunglasses) Ears: Normal External Exam, Normal Canal, Hearing Grossly Normal, Normal TMs Nose: Normal Inspection, No Blood Throat/Mouth: Normal Inspection, Normal Lips, Normal Oropharynx, Normal Voice, No Airway Compromise Head Exam: Atraumatic, Normocephalic Neck: Normal Inspection, Non-Tender Respiratory/Chest: No Respiratory Distress, Lungs Clear, Normal Breath Sounds, No Accessory Muscle Use, Chest Non-Tender Cardiovascular: Regular Rate, Rhythm, No Edema GI/Abdominal: Normal Bowel Sounds, Soft, Non-Tender, No Distention Neuro Exam (Abbreviated): Alert, Oriented, CN II-XII Intact, Normal Cognition, No Motor/Sensory Deficits Back Exam: Normal Inspection Extremities: Normal Inspection, Normal Range of Motion, Non-Tender, No Pedal Edema Psychiatric: Normal Affect, Normal Mood Skin Exam: Warm, Dry, Intact, Normal Color, No Rash Course - Vital Signs Text/Narrative:: discussed with an oncologist on-call at [facility]. Tumor size has been shrinking on his last 2 MRI's, last being January. ELDRIDGE's should therefore not be getting worse. Last Recorded V/S: Last Vital Signs Temp 36.4 C 03/25/18 13:44 Pulse 72 03/25/18 13:44 Resp 12 03/25/18 13:44 BP 131/81 03/25/18 13:44 Pulse Ox 98 03/25/18 13:44 Departure - Departure Time of Disposition: 15:00 Disposition: Home, Self-Care 01 Condition: Good Clinical Impression: Headache Qualifiers: Headache type: unspecified Headache chronicity pattern: chronic headache Intractability: not intractable Qualified Code(s): R51 - Headache - Discharge Information *PRESCRIPTION DRUG MONITORING PROGRAM REVIEWED*: No *COPY OF PRESCRIPTION DRUG MONITORING REPORT IN PATIENT RAMÓN: No Referrals: PCP,None [Primary Care Provider] - Forms: ED Department Discharge Additional Instructions: No driving today. Call your doctor in the morning tomorrow to discuss your headaches and to make a plan for management.
[2018-03-25] MEDS ORDERED: Morphine 30 MG Tab.ER PO STA (14:53)
[2018-03-25] MEDS ORDERED: HYDROmorphone 2 MG Tab PO STA (14:54)
[2018-03-25] MEDS ORDERED: Ondansetron 4 MG Tab.DIS PO ONE (14:54)
== END 2018-03-25 15:35 | disposition home or self-care (01) ==
LOC: JP.ED 12:16
DX: R51 Headache (principal); Z79.899 Other long term (current) drug therapy; Z87.891 Personal history of nicotine dependence
CPT/HCPCS: 99284; A9270

== ENCOUNTER 2018-03-26 17:30 | Emergency (ER) | payer MEDICAID ==
[2018-03-26 17:42] VITALS: BP 153/83
== END 2018-03-26 18:30 | disposition home or self-care (01) ==
LOC: JP.ED 17:30
DX: Z53.21 Procedure and treatment not carried out due to patient leaving prior to being seen by health care provider (principal)
CPT/HCPCS: 99281

== ENCOUNTER 2018-04-01 12:26 | Emergency (ER) | payer MEDICAID ==
[2018-04-01 12:49] VITALS: BP 153/96
--- NOTE | 2018-04-01 13:21 | EDM.PDOC ---
ED HPI GENERAL MEDICAL PROBLEM - General Chief Complaint: General Stated Complaint: NEED MED REFIL Time Seen by Provider: 04/01/18 13:03 Source of Information: Reports: Patient, Family, Old Records, RN Notes Reviewed History Limitations: Reports: No Limitations - History of Present Illness INITIAL COMMENTS - FREE TEXT/NARRATIVE: 32-year-old gentleman presents emergency department today with request of refill of pain medications, he has a known history of craniopharyngioma status post resection, I did review old records there is a letter from Dr. Arrieta [employer] equipment sales stating which did not provide him any refills of pain medications, review of old records show that he was in the emergency department on March 18 at which time complaining of headache he was treated with Compazine, 2 mg of Dilaudid and Benadryl, he was then in the emergency department on March 25 complaining of nausea and vomiting unable to keep his medications down was treated with 2 mg Dilaudid and 60 mg of morphine by mouth. He presents to the emergency department today approximately one week later with a similar complaint unable to keep his medications down secondary to nausea and vomiting he is out of his medications. States his primary oncology provider at [facility] only provides 1 week's medication at a time he is due for refill tomorrow he is asking for a 2 day prescription of both morphine and Dilaudid. He also states that he contacted [facility] for advice and they recommended he reports the emergency department right away for treatment. I contacted [facility] I am awaiting for return call to cooperate this story and treatment plan. Headache Pain Score (Numeric/FACES): 7 - Related Data Allergies Allergy/AdvReac Type Severity Reaction Status Date / Time haloperidol [From Haldol] Allergy Rash Verified 03/25/18 13:43 oxycodone AdvReac Nausea Verified 03/25/18 13:43 tramadol AdvReac Nausea Verified 03/25/18 13:43 Home Meds: Home Meds Ondansetron [Zofran ODT] 8 mg PO Q6H PRN 07/03/16 [History] Morphine [MS Contin] 60 mg PO BID 02/05/17 [History] HYDROmorphone [Dilaudid] 4 mg PO Q4HR PRN 09/09/17 [History] OLANZapine [ZyPREXA] 7.5 mg PO DAILY 09/11/17 [History] DULoxetine [Cymbalta] 60 mg PO DAILY 10/15/17 [History] Past Medical History HEENT History: Reports: Head, Other (See Below) Other HEENT History: brain tumor Respiratory History: Reports: Pneumothorax Other Respiratory History: bilateral Musculoskeletal History: Reports: Fracture Neurological History: Reports: Brain Injury, Concussion, Head Trauma, Migraines Other Neuro History: 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 Psychiatric History: Reports: Depression Immunologic History: Reports: Immunosuppression Other Immunologic History: radiation therapy Oncologic (Cancer) History: Reports: Brain Other Oncologic History: Finished 6 weeks of radiation therapy for brain cancer on monday07/01/16 - Infectious Disease History Infectious Disease History: Reports: Chicken Pox - Past Surgical History Head Surgeries/Procedures: Reports: Craniotomy Other HEENT Surgeries/Procedures: surgery brain tumor Musculoskeletal Surgical History: Reports: Other (See Below) Other Musculoskeletal Surgeries/Procedures:: left knee acl reconstruction Oncologic Surgical History: Reports: Other (See Below) Other Oncologic Surgeries/Procedures: radiation therapy done Social & Family History - Family History Family Medical History: Noncontributory - Tobacco Use Smoking Status *Q: Never Smoker - Caffeine Use Caffeine Use: Reports: Coffee, Energy Drinks Other Caffeine Use: 2 cups coffee per day. 2 energy drinks per day - Recreational Drug Use Recreational Drug Use: No ED ROS GENERAL - Review of Systems Review Of Systems: See Below Constitutional: Reports: No Symptoms Respiratory: Reports: No Symptoms Cardiovascular: Reports: No Symptoms GI/Abdominal: Reports: No Symptoms ED EXAM, GENERAL - Physical Exam Exam: See Below Exam Limited By: No Limitations General Appearance: Alert, WD/WN, No Apparent Distress Respiratory/Chest: No Respiratory Distress Course - Vital Signs Last Recorded V/S: Last Vital Signs Temp 96.9 F 04/01/18 12:51 Pulse 82 04/01/18 12:51 Resp 16 04/01/18 12:51 BP 153/96 H 04/01/18 12:51 Pulse Ox 99 04/01/18 12:51 - Orders/Labs/Meds Orders: Active Orders 24 hr Category Date Time Status HYDROmorphone [Dilaudid] Med 04/01/18 13:39 Stat 4 mg PO NOW STA Morphine [MS Contin] Med 04/02/18 09:00 Ordered 60 mg PO DAILY Medication Orders Hydromorphone HCl (Dilaudid) 4 mg PO NOW STA Stop: 04/01/18 13:40 Morphine Sulfate (Ms Contin) 60 mg PO DAILY [facility] Meds: Medications Generic Name Dose Route Start Last Admin Trade Name Pedro PRN Reason Stop Dose Admin Hydromorphone HCl 4 mg 04/01/18 13:39 Dilaudid PO 04/01/18 13:40 NOW STA Morphine Sulfate 60 mg 04/02/18 09:00 Ms Contin PO DAILY [facility] Departure - Departure Time of Disposition: 13:41 Disposition: Home, Self-Care 01 Condition: Poor Clinical Impression: Craniopharyngioma - Discharge Information Referrals: PCP,None [Primary Care Provider] - Forms: ED Department Discharge Additional Instructions: Please contact your oncologist in the morning for refill of your medications - My Orders Last 24 Hours: My Active Orders 04/01/18 13:39 HYDROmorphone [Dilaudid] 4 mg PO NOW STA 04/02/18 09:00 Morphine [MS Contin] 60 mg PO DAILY - Assessment/Plan Last 24 Hours: My Active Orders 04/01/18 13:39 HYDROmorphone [Dilaudid] 4 mg PO NOW STA 04/02/18 09:00 Morphine [MS Contin] 60 mg PO DAILY Plan: Assessment Acuity = acute Site and laterality = out of pain medications Etiology = history of craniopharyngioma Manifestations = none Location of injury = Home Lab values = none Plan I called and discussed the case with oncology front end manager at [facility] in [place]. Recommended treating pain today with oral pain medications as prescribed but do not provide any other medications. He informed me he would write a note in the hospital record at [facility] for a consultation with pain management This note was dictated using [employer] voice recognition software please call with any questions on syntax or grammar.
[2018-04-01] MEDS: HYDROmorphone 2 MG Tab PO STA (13:51)
[2018-04-01] MEDS: Morphine 30 MG Tab.ER PO STA (13:51)
[2018-04-02] MEDS ORDERED: Morphine 30 MG Tab.ER PO SCH (09:00)
== END 2018-04-01 13:55 | disposition home or self-care (01) ==
LOC: JP.ED 12:26
DX: D44.4 Neoplasm of uncertain behavior of craniopharyngeal duct (principal); F32.9 Major depressive disorder, single episode, unspecified; Z79.899 Other long term (current) drug therapy; Z88.8 Allergy status to other drugs, medicaments and biological substances
CPT/HCPCS: 99281; A9270

== ENCOUNTER 2018-04-02 17:56 | Emergency (ER) | payer MEDICAID ==
[2018-04-02 18:40] VITALS: BP 122/73
[2018-04-02] MEDS ORDERED: Morphine 30 MG Tab.ER PO STA (18:53)
[2018-04-02] MEDS ORDERED: HYDROmorphone 2 MG Tab PO STA (18:54)
--- NOTE | 2018-04-02 19:03 | EDM.PDOC ---
ED HPI GENERAL MEDICAL PROBLEM - General Chief Complaint: General Stated Complaint: NEES MEDS Time Seen by Provider: 04/02/18 18:45 Source of Information: Reports: Patient, Old Records, RN, Other (Was present for the phone conversation between the patient and his provider's office in the [facility]. ) History Limitations: Reports: No Limitations - History of Present Illness INITIAL COMMENTS - FREE TEXT/NARRATIVE: 32 yo male gets his meds sent to him every week on Monday. He did not get today' s meds due to his provider not being in the office today for some reason. This provider's office just told him(in my presence) to go to the ER and get his meds. (This is not the first time this has occurred). Onset: Today Onset Date: 04/02/18 Duration: Hour(s):, Constant Location: Reports: Generalized Severity: Moderate Improves with: Reports: Medication Worsens with: Reports: Other (missing meds) Associated Symptoms: Reports: No Other Symptoms Headache Pain Score (Numeric/FACES): 7 - Related Data Allergies Allergy/AdvReac Type Severity Reaction Status Date / Time haloperidol [From Haldol] Allergy Rash Verified 03/25/18 13:43 oxycodone AdvReac Nausea Verified 03/25/18 13:43 tramadol AdvReac Nausea Verified 03/25/18 13:43 Home Meds: Home Meds Ondansetron [Zofran ODT] 8 mg PO Q6H PRN 07/03/16 [History] Morphine [MS Contin] 60 mg PO BID 02/05/17 [History] HYDROmorphone [Dilaudid] 4 mg PO Q4HR PRN 09/09/17 [History] OLANZapine [ZyPREXA] 7.5 mg PO DAILY 09/11/17 [History] DULoxetine [Cymbalta] 60 mg PO DAILY 10/15/17 [History] Past Medical History HEENT History: Reports: Head, Other (See Below) Other HEENT History: brain tumor Respiratory History: Reports: Pneumothorax Other Respiratory History: bilateral Musculoskeletal History: Reports: Fracture Neurological History: Reports: Brain Injury, Concussion, Head Trauma, Migraines Other Neuro History: 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 Psychiatric History: Reports: Depression Immunologic History: Reports: Immunosuppression Other Immunologic History: radiation therapy Oncologic (Cancer) History: Reports: Brain Other Oncologic History: Finished 6 weeks of radiation therapy for brain cancer on monday07/01/16 - Infectious Disease History Infectious Disease History: Reports: Chicken Pox - Past Surgical History Head Surgeries/Procedures: Reports: Craniotomy Other HEENT Surgeries/Procedures: surgery brain tumor Musculoskeletal Surgical History: Reports: Other (See Below) Other Musculoskeletal Surgeries/Procedures:: left knee acl reconstruction Oncologic Surgical History: Reports: Other (See Below) Other Oncologic Surgeries/Procedures: radiation therapy done Dermatological Surgical History: Reports: None Social & Family History - Family History Family Medical History: Noncontributory - Tobacco Use Smoking Status *Q: Never Smoker - Caffeine Use Caffeine Use: Reports: Coffee, Soda, Tea Other Caffeine Use: 2 cups coffee per day. 2 energy drinks per day - Recreational Drug Use Recreational Drug Use: No ED ROS GENERAL - Review of Systems Review Of Systems: See Below Constitutional: Reports: No Symptoms HEENT: Reports: No Symptoms Respiratory: Reports: No Symptoms Cardiovascular: Reports: No Symptoms Endocrine: Reports: No Symptoms GI/Abdominal: Reports: No Symptoms : Reports: No Symptoms Musculoskeletal: Reports: No Symptoms Skin: Reports: No Symptoms Neurological: Reports: Headache Psychiatric: Reports: No Symptoms ED EXAM, GENERAL - Physical Exam Exam: See Below Exam Limited By: No Limitations General Appearance: Alert, WD/WN, No Apparent Distress Eye Exam: Right Eye: Periorbital Changes, Bilateral Eye: Normal Inspection Ears: Normal External Exam, Normal Canal, Hearing Grossly Normal, Normal TMs Ear Exam: Bilateral Ear: Auricle Normal, Canal Normal, TM normal Nose: Normal Inspection, Normal Mucosa, No Blood Throat/Mouth: Normal Lips, Normal Voice, No Airway Compromise Head: Atraumatic, Normocephalic Neck: Normal Inspection Respiratory/Chest: No Respiratory Distress, No Accessory Muscle Use Extremities: Normal Inspection Neurological: Alert, Oriented, CN II-XII Intact, Normal Cognition, No Motor/ Sensory Deficits Psychiatric: Normal Affect, Normal Mood Skin Exam: Warm, Dry, Intact, Normal Color, No Rash Course - Vital Signs Last Recorded V/S: Last Vital Signs Temp 37.1 C 04/02/18 18:44 Pulse 83 04/02/18 18:44 Resp 16 04/02/18 18:44 BP 122/73 04/02/18 18:44 Pulse Ox 96 04/02/18 18:44 - Orders/Labs/Meds Meds: Medications Discontinued Medications Generic Name Dose Route Start Last Admin Trade Name Pedro PRN Reason Stop Dose Admin Hydromorphone HCl 4 mg 04/02/18 18:54 Dilaudid PO 04/02/18 18:55 NOW STA Morphine Sulfate 60 mg 04/02/18 18:53 Ms Contin PO 04/02/18 18:54 NOW STA Departure - Departure Time of Disposition: 19:15 Disposition: Home, Self-Care 01 Condition: Good Clinical Impression: Encounter for medication refill Chronic pain Qualifiers: Chronic pain type: due to neoplasm Qualified Code(s): G89.3 - Neoplasm related pain (acute) (chronic) - Discharge Information *PRESCRIPTION DRUG MONITORING PROGRAM REVIEWED*: No *COPY OF PRESCRIPTION DRUG MONITORING REPORT IN PATIENT RAMÓN: No Referrals: PCP,None [Primary Care Provider] - Additional Instructions: Continue on your plan with your doctor's office.
== END 2018-04-02 19:21 | disposition home or self-care (01) ==
LOC: JP.ED 17:56
DX: G89.3 Neoplasm related pain (acute) (chronic) (principal); Z88.5 Allergy status to narcotic agent; Z79.899 Other long term (current) drug therapy
CPT/HCPCS: 99282; A9270

== ENCOUNTER 2018-05-07 15:23 | Emergency (ER) | payer MEDICAID ==
[2018-05-07 15:47] VITALS: BP 123/89
[2018-05-07] MEDS ORDERED: Ondansetron 4 MG Tab.DIS PO ONE (15:59)
[2018-05-07] MEDS ORDERED: HYDROmorphone 1 MG/ML Syringe IM ONE (15:59)
--- NOTE | 2018-05-07 16:05 | EDM.PDOC ---
ED HPI GENERAL MEDICAL PROBLEM - General Chief Complaint: Gastrointestinal Problem Stated Complaint: ILLNESS Time Seen by Provider: 05/07/18 15:50 Source of Information: Reports: Patient, Family, Old Records History Limitations: Reports: No Limitations - History of Present Illness INITIAL COMMENTS - FREE TEXT/NARRATIVE: 32 yo male on chronic pain meds for ELDRIDGE's prescribed by pain specialists in the [facility] comes in with his mother today with ELDRIDGE and vomiting. No fever or hematemesis. He is supposed to get his meds filled every Monday and typically is completely out of them come Monday. Today as has happened in the past none of his providers area available to refill his prescriptions. He denies diarrhea. Is not dizzy with standing. Onset: Today Onset Date: 05/07/18 Duration: Hour(s):, Getting Worse Location: Reports: Head Quality: Reports: Ache Severity: Severe Improves with: Reports: Medication Worsens with: Reports: Other (missing meds) Context: Reports: Other (See HPI, pHx of a benign brain tumor.) Associated Symptoms: Reports: Headaches, Nausea/Vomiting. Denies: Fever/Chills Treatments MEETING COORDINATOR: Reports: Other (see below) (none) Head Pain Score (Numeric/FACES): 8 - Related Data Allergies Allergy/AdvReac Type Severity Reaction Status Date / Time haloperidol [From Haldol] Allergy Rash Verified 05/07/18 15:43 oxycodone AdvReac Nausea Verified 05/07/18 15:43 tramadol AdvReac Nausea Verified 05/07/18 15:43 Home Meds: Home Meds Ondansetron [Zofran ODT] 8 mg PO Q6H PRN 07/03/16 [History] Morphine [MS Contin] 60 mg PO BID 02/05/17 [History] OLANZapine [ZyPREXA] 7.5 mg PO DAILY 09/11/17 [History] DULoxetine [Cymbalta] 60 mg PO DAILY 10/15/17 [History] Morphine [MS Contin] 60 mg PO Q12H PRN #2 tab.er 05/07/18 [Rx] Past Medical History HEENT History: Reports: Head, Other (See Below) Other HEENT History: brain tumor Respiratory History: Reports: Pneumothorax Other Respiratory History: bilateral Musculoskeletal History: Reports: Fracture Neurological History: Reports: Brain Injury, Concussion, Head Trauma, Migraines Other Neuro History: 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 Psychiatric History: Reports: Depression Immunologic History: Reports: Immunosuppression Other Immunologic History: radiation therapy Oncologic (Cancer) History: Reports: Brain Other Oncologic History: Finished 6 weeks of radiation therapy for brain cancer on monday07/01/16 - Infectious Disease History Infectious Disease History: Reports: Chicken Pox - Past Surgical History Head Surgeries/Procedures: Reports: Craniotomy Other HEENT Surgeries/Procedures: surgery brain tumor Respiratory Surgical History: Reports: None Neurological Surgical History: Reports: None Musculoskeletal Surgical History: Reports: Other (See Below) Other Musculoskeletal Surgeries/Procedures:: left knee acl reconstruction Oncologic Surgical History: Reports: Other (See Below) Other Oncologic Surgeries/Procedures: radiation therapy done Dermatological Surgical History: Reports: None Social & Family History - Family History Family Medical History: Noncontributory - Tobacco Use Smoking Status *Q: Never Smoker Second Hand Smoke Exposure: No - Caffeine Use Caffeine Use: Reports: Coffee, Soda, Tea Other Caffeine Use: 2 cups coffee per day. 2 energy drinks per day - Recreational Drug Use Recreational Drug Use: No ED ROS GENERAL - Review of Systems Review Of Systems: See Below Constitutional: Reports: No Symptoms HEENT: Reports: No Symptoms Respiratory: Reports: No Symptoms Cardiovascular: Reports: No Symptoms GI/Abdominal: Reports: Nausea, Vomiting. Denies: Black Stool, Bloody Stool, Constipation, Diarrhea, Hematemesis, Hematochezia, Melena : Reports: No Symptoms Musculoskeletal: Reports: No Symptoms Skin: Reports: No Symptoms Neurological: Reports: Headache Psychiatric: Reports: No Symptoms - Physical Exam Exam: See Below Exam Limited By: No Limitations General Appearance: Alert, WD/WN, No Apparent Distress Eye Exam: Bilateral Eye: Normal Inspection Ears: Normal External Exam, Normal Canal, Hearing Grossly Normal, Normal TMs Nose: Normal Inspection, No Blood Throat/Mouth: Normal Inspection, Normal Lips, Normal Oropharynx, Normal Voice, No Airway Compromise Head Exam: Atraumatic, Normocephalic Neck: Normal Inspection Respiratory/Chest: No Respiratory Distress, Lungs Clear, Normal Breath Sounds, No Accessory Muscle Use Cardiovascular: Regular Rate, Rhythm, No Edema GI/Abdominal: Normal Bowel Sounds, Soft, Non-Tender, No Distention Neuro Exam (Abbreviated): Alert, Oriented, CN II-XII Intact, Normal Cognition, No Motor/Sensory Deficits Back Exam: Normal Inspection. No: CVA Tenderness (R), CVA Tenderness (L) Extremities: Normal Inspection, Normal Range of Motion, Non-Tender, No Pedal Edema Psychiatric: Normal Affect, Normal Mood Skin Exam: Warm, Dry, Intact, Normal Color, No Rash Course - Vital Signs Last Recorded V/S: Last Vital Signs Temp 36.2 C 05/07/18 15:47 Pulse 61 05/07/18 15:47 Resp 16 05/07/18 15:47 BP 123/89 05/07/18 15:47 Pulse Ox 100 05/07/18 15:47 - Orders/Labs/Meds Orders: Active Orders 24 hr Category Date Time Status HYDROmorphone [Dilaudid] Med 05/07/18 17:11 Once 0.5 mg IVPUSH ONETIME ONE Ondansetron [Zofran] Med 05/07/18 17:12 Once 4 mg IVPUSH ONETIME ONE Meds: Medications Discontinued Medications Generic Name Dose Route Start Last Admin Trade Name Freq PRN Reason Stop Dose Admin Hydromorphone HCl 1.5 mg 05/07/18 15:59 05/07/18 16:07 Dilaudid IM 05/07/18 16:00 1.5 mg ONETIME ONE Administration Lactated Ringer's 1,000 mls @ 1,000 mls/hr 05/07/18 16:11 05/07/18 16:22 Ringers, Lactated IV 05/07/18 17:10 1,000 mls/hr BOLUS ONE Administration Ondansetron HCl 4 mg 05/07/18 15:59 05/07/18 16:07 Zofran Odt PO 05/07/18 16:00 4 mg ONETIME ONE Administration Departure - Departure Time of Disposition: 17:30 Disposition: Home, Self-Care 01 Condition: Fair Clinical Impression: Chronic pain Qualifiers: Chronic pain type: due to neoplasm Qualified Code(s): G89.3 - Neoplasm related pain (acute) (chronic) - Discharge Information *PRESCRIPTION DRUG MONITORING PROGRAM REVIEWED*: No *COPY OF PRESCRIPTION DRUG MONITORING REPORT IN PATIENT RAMÓN: No Prescriptions: Morphine [MS Contin] 60 mg PO Q12H PRN #2 tab.er PRN Reason: Headache Referrals: PCP,None [Primary Care Provider] - Forms: ED Department Discharge Additional Instructions: Use your MSContin 60 mg every 12 hrs. F/U with your doctors in the morning tomorrow. Continue your other medications as before. - My Orders Last 24 Hours: My Active Orders 05/07/18 17:11 HYDROmorphone [Dilaudid] 0.5 mg IVPUSH ONETIME ONE 05/07/18 17:12 Ondansetron [Zofran] 4 mg IVPUSH ONETIME ONE - Assessment/Plan Last 24 Hours: My Active Orders 05/07/18 17:11 HYDROmorphone [Dilaudid] 0.5 mg IVPUSH ONETIME ONE 05/07/18 17:12 Ondansetron [Zofran] 4 mg IVPUSH ONETIME ONE
[2018-05-07] MEDS ORDERED: Lactated Ringers 1,000 ML IV ONE (16:11)
[2018-05-07] MEDS ORDERED: HYDROmorphone 0.5 MG/0.5 ML Syringe IVPUSH ONE (17:11)
[2018-05-07] MEDS ORDERED: Ondansetron 4 MG/2 ML SDV IVPUSH ONE (17:12)
== END 2018-05-07 17:32 | disposition home or self-care (01) ==
LOC: JP.ED 15:23
DX: G89.3 Neoplasm related pain (acute) (chronic) (principal); F32.9 Major depressive disorder, single episode, unspecified; Z79.899 Other long term (current) drug therapy; Z88.6 Allergy status to analgesic agent; Z88.5 Allergy status to narcotic agent; Z88.8 Allergy status to other drugs, medicaments and biological substances
CPT/HCPCS: 96361; 96372; 96374; 96375; 99283; A9270; J1170; J2405; J7120

== ENCOUNTER 2018-05-14 17:51 | Emergency (ER) | payer MEDICAID ==
[2018-05-14 18:14] VITALS: BP 121/84
[2018-05-14] MEDS ORDERED: Sodium Chloride 0.9% 1,000 ML IV SCH (18:45)
--- NOTE | 2018-05-14 19:16 | EDM.PDOC ---
ED HPI GENERAL MEDICAL PROBLEM - General Chief Complaint: General Stated Complaint: NEEDS MEDS Time Seen by Provider: 05/14/18 18:25 Source of Information: Reports: Patient History Limitations: Reports: No Limitations - History of Present Illness INITIAL COMMENTS - FREE TEXT/NARRATIVE: 32-year-old male with chronic headaches who takes a fairly large amount of narcotics was given 7 days' supply of Dilaudid and morphine 8 days ago but claims he's been off for the last 2 days. He was unable to get a hold of his primary provider for a refill. When I asked him why he used 7 days worth of the medicine in 6 days he claims he occasionally vomits right after taking the medicine so has to repeat the dose at times. He feels dehydrated as he has not ate or drank anything all day because if he tries he throws up, his last emesis was this morning. He called his primary neurologist and was told to come in and get "IV fluids and pain control". Onset: Gradual (Very nauseated for the past 24 hours, persistent headache is chronic) Associated Symptoms: Reports: Loss of Appetite, Malaise. Denies: Confusion, Chest Pain, Shortness of Breath Headache Pain Score (Numeric/FACES): 7 - Related Data Allergies Allergy/AdvReac Type Severity Reaction Status Date / Time haloperidol [From Haldol] Allergy Rash Verified 05/07/18 15:43 oxycodone AdvReac Nausea Verified 05/07/18 15:43 tramadol AdvReac Nausea Verified 05/07/18 15:43 Home Meds: Home Meds Ondansetron [Zofran ODT] 8 mg PO Q6H PRN 07/03/16 [History] OLANZapine [ZyPREXA] 7.5 mg PO DAILY 09/11/17 [History] DULoxetine [Cymbalta] 60 mg PO DAILY 10/15/17 [History] Morphine [MS Contin] 60 mg PO Q12H PRN #2 tab.er 05/07/18 [Rx] HYDROmorphone [Dilaudid] 4 mg PO Q4H PRN 05/14/18 [History] Past Medical History HEENT History: Reports: Head, Other (See Below) Other HEENT History: brain tumor Respiratory History: Reports: Pneumothorax Other Respiratory History: bilateral Musculoskeletal History: Reports: Fracture Neurological History: Reports: Brain Injury, Concussion, Head Trauma, Migraines Other Neuro History: 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 Psychiatric History: Reports: Depression Immunologic History: Reports: Immunosuppression Other Immunologic History: radiation therapy Oncologic (Cancer) History: Reports: Brain Other Oncologic History: Finished 6 weeks of radiation therapy for brain cancer on monday07/01/16 - Infectious Disease History Infectious Disease History: Reports: Chicken Pox - Past Surgical History Head Surgeries/Procedures: Reports: Craniotomy Other HEENT Surgeries/Procedures: surgery brain tumor Respiratory Surgical History: Reports: None Neurological Surgical History: Reports: None Musculoskeletal Surgical History: Reports: Other (See Below) Other Musculoskeletal Surgeries/Procedures:: left knee acl reconstruction Oncologic Surgical History: Reports: Other (See Below) Other Oncologic Surgeries/Procedures: radiation therapy done Dermatological Surgical History: Reports: None Social & Family History - Family History Family Medical History: Noncontributory - Tobacco Use Smoking Status *Q: Never Smoker - Caffeine Use Caffeine Use: Reports: Coffee Other Caffeine Use: 2 cups coffee per day. 2 energy drinks per day - Recreational Drug Use Recreational Drug Use: No ED ROS GENERAL - Review of Systems Review Of Systems: See Below Constitutional: Denies: Fever, Chills HEENT: Denies: Throat Pain Respiratory: Denies: Shortness of Breath Cardiovascular: Denies: Chest Pain GI/Abdominal: Reports: Nausea, Vomiting Skin: Reports: No Symptoms Neurological: Reports: Headache, Weakness Psychiatric: Reports: No Symptoms ED EXAM, GENERAL - Physical Exam Exam: See Below Exam Limited By: No Limitations General Appearance: Alert, No Apparent Distress (Patient does not appear to be in any significant distress) Eye Exam: Bilateral Eye: Normal Inspection Throat/Mouth: Normal Inspection Head: Atraumatic Respiratory/Chest: No Respiratory Distress, Lungs Clear Cardiovascular: Regular Rate, Rhythm. No: Tachycardia GI/Abdominal: Non-Tender Extremities: No: Pedal Edema Neurological: Alert, Oriented Course - Vital Signs Last Recorded V/S: Last Vital Signs Temp 97.2 F 05/14/18 18:14 Pulse 76 05/14/18 18:14 Resp 16 05/14/18 18:14 BP 121/84 05/14/18 18:14 Pulse Ox 99 05/14/18 18:14 - Orders/Labs/Meds Meds: Medications Discontinued Medications Generic Name Dose Route Start Last Admin Trade Name Pedro PRN Reason Stop Dose Admin Hydromorphone HCl 2 mg 05/14/18 19:40 05/14/18 19:58 Dilaudid IM 05/14/18 19:41 Not Given ONETIME ONE Hydromorphone HCl 2 mg 05/14/18 19:58 05/14/18 19:59 Dilaudid IVPUSH 05/14/18 19:59 2 mg ONETIME ONE Administration Sodium Chloride 1,000 mls @ 1,000 mls/hr 05/14/18 18:45 05/14/18 18:54 Normal Saline IV 1,000 mls/hr ASDIRECTED JADEN Administration Ondansetron HCl 4 mg 05/14/18 19:27 05/14/18 19:33 Zofran IVPUSH 05/14/18 19:28 4 mg ONETIME ONE Administration - Re-Assessments/Exams Free Text/Narrative Re-Assessment/Exam: 05/14/18 19:16 Explained to the patient that he has no physical signs of dehydration, his vitals are normal but he insisted he will become dehydrated if not given fluids as he is going to continue to vomit if he tries to eat or drink anything. I did agree to 1 L of normal saline, and we will give him a dose of Dilaudid on discharge to get him through until tomorrow. 05/14/18 19:39 Patient had no active emesis but continued to feel nauseous while in the emergency room, he was given 4 mg of IV Zofran. Then given 2 mg of IV Dilaudid and 5 additional doses of oral Zofran and was told to contact his primary provider tomorrow for additional medications. Departure - Departure Time of Disposition: 20:03 Disposition: Home, Self-Care 01 Condition: Good Clinical Impression: Head ache Qualifiers: Headache type: unspecified Headache chronicity pattern: chronic headache Intractability: not intractable Qualified Code(s): R51 - Headache - Discharge Information Instructions: Chronic Pain, Adult Referrals: PCP,None [Primary Care Provider] - Forms: ED Department Discharge Care Plan Goals: Use Zofran every 6-8 hours for persistent nausea and call your primary provider tomorrow for med refills as needed.
[2018-05-14] MEDS ORDERED: Ondansetron 4 MG/2 ML SDV IVPUSH ONE (19:27)
[2018-05-14] MEDS: HYDROmorphone 1 MG/ML Syringe IM ONE ×2 (19:53→19:58)
[2018-05-14] MEDS ORDERED: HYDROmorphone 1 MG/ML Syringe IVPUSH ONE (19:58)
== END 2018-05-14 20:03 | disposition home or self-care (01) ==
LOC: JP.ED 17:51
DX: R51 Headache (principal); Z88.5 Allergy status to narcotic agent; Z79.899 Other long term (current) drug therapy
CPT/HCPCS: 96361; 96374; 96375; 99283; J1170; J2405; J7030

== ENCOUNTER 2018-07-08 09:13 | Emergency (ER) | payer MEDICAID ==
[2018-07-08 09:52] VITALS: BP 126/85
[2018-07-08] MEDS ORDERED: HYDROmorphone 1 MG/ML Syringe IM ONE (10:06)
[2018-07-08] MEDS ORDERED: Metoclopramide 10 MG/2 ML SDV IM ONE (10:06)
--- NOTE | 2018-07-08 10:15 | EDM.PDOC ---
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 He is used up his medications faster than usual because of nausea and is vomited some of this doses. He tried to get ahold of his pain doctor towards the end of the week but was unable, he has one 60 mg morphine left. No emesis since last night. Associated Symptoms: Reports: Headaches, Nausea/Vomiting. Denies: Chest Pain, Cough, Shortness of Breath, Weakness Headache Pain Score (Numeric/FACES): 9 - Related Data Allergies Allergy/AdvReac Type Severity Reaction Status Date / Time haloperidol [From Haldol] Allergy Rash Verified 05/07/18 15:43 oxycodone AdvReac Nausea Verified 05/07/18 15:43 tramadol AdvReac Nausea Verified 05/07/18 15:43 Home Meds: Home Meds Ondansetron [Zofran ODT] 8 mg PO Q6H PRN 07/03/16 [History] OLANZapine [ZyPREXA] 7.5 mg PO DAILY 09/11/17 [History] DULoxetine [Cymbalta] 60 mg PO DAILY 10/15/17 [History] Morphine [MS Contin] 60 mg PO Q12H PRN #2 tab.er 05/07/18 [Rx] HYDROmorphone [Dilaudid] 4 mg PO Q4H PRN 05/14/18 [History] Past Medical History HEENT History: Reports: Head, Other (See Below) Other HEENT History: brain tumor Respiratory History: Reports: Pneumothorax Other Respiratory History: bilateral Musculoskeletal History: Reports: Fracture Neurological History: Reports: Brain Injury, Concussion, Head Trauma, Migraines Other Neuro History: 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 Psychiatric History: Reports: Depression Immunologic History: Reports: Immunosuppression Other Immunologic History: radiation therapy Oncologic (Cancer) History: Reports: Brain Other Oncologic History: Finished 6 weeks of radiation therapy for brain cancer on monday07/01/16 - Infectious Disease History Infectious Disease History: Reports: Chicken Pox - Past Surgical History Head Surgeries/Procedures: Reports: Craniotomy Other HEENT Surgeries/Procedures: surgery brain tumor Respiratory Surgical History: Reports: None Neurological Surgical History: Reports: None Musculoskeletal Surgical History: Reports: Other (See Below) Other Musculoskeletal Surgeries/Procedures:: left knee acl reconstruction Oncologic Surgical History: Reports: Other (See Below) Other Oncologic Surgeries/Procedures: radiation therapy done Dermatological Surgical History: Reports: None Social & Family History - Family History Family Medical History: Noncontributory - Tobacco Use Smoking Status *Q: Never Smoker - Caffeine Use Caffeine Use: Reports: Coffee, Soda, Tea Other Caffeine Use: 2 cups coffee per day. 2 energy drinks per day - Recreational Drug Use Recreational Drug Use: No ED ROS GENERAL - Review of Systems Review Of Systems: See Below Constitutional: Reports: Malaise. Denies: Fever, Chills Respiratory: Denies: Shortness of Breath GI/Abdominal: Reports: Nausea, Vomiting Skin: Reports: No Symptoms Neurological: Reports: Headache, Other (Photophobia) ED EXAM, GENERAL - Physical Exam Exam: See Below Exam Limited By: No Limitations General Appearance: Alert, No Apparent Distress, Other (Patient doesn't act real uncomfortable) Eye Exam: Bilateral Eye: EOMI, PERRL Respiratory/Chest: No Respiratory Distress Neurological: Alert, Oriented, No Motor/Sensory Deficits, Other (Ambulates without difficulty) Skin Exam: Warm, Dry Course - Vital Signs Last Recorded V/S: Last Vital Signs Temp 97.5 F 07/08/18 10:06 Pulse 91 07/08/18 10:06 Resp 13 07/08/18 10:06 BP 126/85 07/08/18 10:06 Pulse Ox 99 07/08/18 10:06 - Orders/Labs/Meds Meds: Medications Discontinued Medications Generic Name Dose Route Start Last Admin Trade Name Freq PRN Reason Stop Dose Admin Hydromorphone HCl 2 mg 07/08/18 10:06 07/08/18 10:17 Dilaudid IM 07/08/18 10:07 2 mg ONETIME ONE Administration Metoclopramide HCl 10 mg 07/08/18 10:06 07/08/18 10:14 Reglan IM 07/08/18 10:07 10 mg ONETIME ONE Administration - Re-Assessments/Exams Free Text/Narrative Re-Assessment/Exam: 07/08/18 10:28 Review [employer]ESS OPERATOR and reviewed this with the patient himself. He claims that he doesn' t use Dilaudid every day, however he has used 117 doses in the last 20 days along with 46 doses of morphine in the last 20 days. He was concerned that this wasn't accurate, he also claims that sometimes he misplaces pills etc. It's just very concerning that he is here again with only one morphine pill left after these large amounts of prescriptions. I offered him a shot of Reglan and 1 dose of IM Dilaudid, he asked for an IV which was also concerning. He was given 10 mg of IM Reglan along with 2 mg of IM Dilaudid but I explained to him that I cannot give him any outpatient medications and cannot provide him with more emergency doses over the next 48 hours, he needs to call his pain doctor on Monday morning. Departure - Departure Time of Disposition: 10:38 Disposition: Home, Self-Care 01 Clinical Impression: Chronic pain Qualifiers: Chronic pain type: due to neoplasm Qualified Code(s): G89.3 - Neoplasm related pain (acute) (chronic) - Discharge Information Instructions: Pain Medicine Instructions, [id number] Referrals: Keny Brand MD [Primary Care Provider] - Forms: ED Department Discharge Care Plan Goals: Rest today, continue any current medications as prescribed and contact your chronic pain providers on Monday as planned.
== END 2018-07-08 10:39 | disposition home or self-care (01) ==
LOC: JP.ED 09:13
DX: G89.3 Neoplasm related pain (acute) (chronic) (principal); Z85.841 Personal history of malignant neoplasm of brain; Z79.899 Other long term (current) drug therapy; Z88.6 Allergy status to analgesic agent; Z88.8 Allergy status to other drugs, medicaments and biological substances
CPT/HCPCS: 96372; 99283; J1170; J2765

== ENCOUNTER 2018-07-10 12:31 | Emergency (ER) | payer MEDICAID ==
[2018-07-10 12:57] VITALS: BP 111/82
== END 2018-07-10 14:56 | disposition left against medical advice (07) ==
LOC: JP.ED 12:31
DX: Z53.21 Procedure and treatment not carried out due to patient leaving prior to being seen by health care provider (principal)

== ENCOUNTER 2018-09-16 14:31 | Emergency (ER) | payer MEDICAID ==
[2018-09-16 15:37] VITALS: BP 124/81; PULSE 89
--- NOTE | 2018-09-16 17:07 | EDM.PDOC ---
ED HPI GENERAL MEDICAL PROBLEM - General Chief Complaint: Headache Stated Complaint: HEAD PAIN, HAS BRAIN CANCER Time Seen by Provider: 09/16/18 17:02 Source of Information: Reports: Patient History Limitations: Reports: No Limitations - History of Present Illness INITIAL COMMENTS - FREE TEXT/NARRATIVE: states he has brain cancer takes MS 60 bid Dilaudid for breakthrough pain States he can't get the pain under control He is a chronic narcotic seeker here; States that he needs Dilaudid, Ativan, and Phenergan. Onset: Gradual Headache Pain Score (Numeric/FACES): 8 - Related Data Allergies Allergy/AdvReac Type Severity Reaction Status Date / Time haloperidol [From Haldol] Allergy Mild Rash Verified 07/10/18 13:10 oxycodone AdvReac Nausea Verified 07/10/18 13:10 tramadol AdvReac Nausea Verified 07/10/18 13:10 Home Meds: Home Meds Ondansetron [Zofran ODT] 8 mg PO Q6H PRN 07/03/16 [History] OLANZapine [ZyPREXA] 7.5 mg PO DAILY 09/11/17 [History] DULoxetine [Cymbalta] 60 mg PO DAILY 10/15/17 [History] Morphine [MS Contin] 60 mg PO Q12H PRN #2 tab.er 05/07/18 [Rx] HYDROmorphone [Dilaudid] 4 mg PO Q4H PRN 05/14/18 [History] Past Medical History HEENT History: Reports: Head, Other (See Below) Other HEENT History: brain tumor Respiratory History: Reports: Pneumothorax Other Respiratory History: bilateral Musculoskeletal History: Reports: Fracture Neurological History: Reports: Brain Injury, Concussion, Head Trauma, Migraines Other Neuro History: 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 Psychiatric History: Reports: Depression Immunologic History: Reports: Immunosuppression Other Immunologic History: radiation therapy Oncologic (Cancer) History: Reports: Brain Other Oncologic History: Finished 6 weeks of radiation therapy for brain cancer on monday07/01/16 - Infectious Disease History Infectious Disease History: Reports: Chicken Pox - Past Surgical History Head Surgeries/Procedures: Reports: Craniotomy Other HEENT Surgeries/Procedures: surgery brain tumor Musculoskeletal Surgical History: Reports: Other (See Below) Other Musculoskeletal Surgeries/Procedures:: left knee acl reconstruction Oncologic Surgical History: Reports: Other (See Below) Other Oncologic Surgeries/Procedures: radiation therapy done Dermatological Surgical History: Reports: None Social & Family History - Family History Family Medical History: Noncontributory - Tobacco Use Smoking Status *Q: Never Smoker - Caffeine Use Caffeine Use: Reports: None Other Caffeine Use: 2 cups per day of coffee and energy drinks - Recreational Drug Use Recreational Drug Use: No ED ROS GENERAL - Review of Systems Review Of Systems: See Below Constitutional: Reports: No Symptoms Respiratory: Reports: No Symptoms Cardiovascular: Reports: No Symptoms GI/Abdominal: Reports: Nausea Musculoskeletal: Reports: No Symptoms Skin: Reports: No Symptoms Neurological: Reports: Headache Psychiatric: Reports: Other (drug seeking behavior) ED EXAM, GENERAL - Physical Exam Exam: See Below Exam Limited By: No Limitations General Appearance: Alert, WD/WN, No Apparent Distress Eye Exam: Bilateral Eye: EOMI, PERRL Head: Atraumatic, Normocephalic Neck: Normal Inspection, Supple, Full Range of Motion Respiratory/Chest: Lungs Clear, Normal Breath Sounds Cardiovascular: Regular Rate, Rhythm Extremities: Normal Inspection, Normal Range of Motion Neurological: Alert, Oriented, CN II-XII Intact, Normal Cognition, Normal Gait Skin Exam: Warm, Dry, Intact Course - Vital Signs Last Recorded V/S: Last Vital Signs Temp 97.6 F 09/16/18 15:34 Pulse 89 09/16/18 15:34 Resp 18 09/16/18 15:34 BP 124/81 09/16/18 15:34 Pulse Ox - Orders/Labs/Meds Orders: Active Orders 24 hr Category Date Time Status Sodium Chloride 0.9% [Normal Saline] 1,000 ml Med 09/16/18 17:15 Active IV ASDIRECTED Medication Orders Sodium Chloride (Normal Saline) 1,000 mls @ 999 mls/hr IV ASDIRECTED JADEN Last Admin: 09/16/18 17:35 Dose: 999 mls/hr Meds: Medications Generic Name Dose Route Start Last Admin Trade Name Freq PRN Reason Stop Dose Admin Sodium Chloride 1,000 mls @ 999 mls/hr 09/16/18 17:15 09/16/18 17:35 Normal Saline IV 999 mls/hr ASDIRECTED JADEN Administration Discontinued Medications Generic Name Dose Route Start Last Admin Trade Name Freq PRN Reason Stop Dose Admin Hydromorphone HCl 2 mg 09/16/18 17:11 09/16/18 17:35 Dilaudid IVPUSH 09/16/18 17:12 2 mg ONETIME ONE Administration Metoclopramide HCl 5 mg 09/16/18 17:14 09/16/18 17:34 Reglan IVPUSH 09/16/18 17:15 5 mg ONETIME ONE Administration Departure - Departure Time of Disposition: 18:04 Disposition: Home, Self-Care 01 Condition: Fair Clinical Impression: Chronic pain Qualifiers: Chronic pain type: due to neoplasm Qualified Code(s): G89.3 - Neoplasm related pain (acute) (chronic) - Discharge Information *PRESCRIPTION DRUG MONITORING PROGRAM REVIEWED*: Not Applicable *COPY OF PRESCRIPTION DRUG MONITORING REPORT IN PATIENT RAMÓN: Not Applicable Instructions: Pain Medicine Instructions Referrals: Keny Brand MD [Primary Care Provider] - Forms: ED Department Discharge Additional Instructions: Please follow up with your doctor tomorrow. Stay hydrated Do not drink or drive while you take pain medications. Call with questions. - Problem List & Annotations (1) Head ache SNOMED Code(s): 25569955 Code(s): R51 - HEADACHE Status: Acute Priority: Low Current Visit: No Qualifiers: Headache type: unspecified Headache chronicity pattern: chronic headache Intractability: not intractable Qualified Code(s): R51 - Headache - My Orders Last 24 Hours: My Active Orders 09/16/18 17:15 Sodium Chloride 0.9% [Normal Saline] 1,000 ml IV ASDIRECTED - Assessment/Plan Last 24 Hours: My Active Orders 09/16/18 17:15 Sodium Chloride 0.9% [Normal Saline] 1,000 ml IV ASDIRECTED
[2018-09-16] MEDS ORDERED: HYDROmorphone 1 MG/ML Syringe IVPUSH ONE (17:11)
[2018-09-16] MEDS ORDERED: Metoclopramide 10 MG/2 ML SDV IVPUSH ONE (17:14)
[2018-09-16] MEDS ORDERED: Sodium Chloride 0.9% 1,000 ML IV SCH (17:15)
== END 2018-09-16 18:12 | disposition home or self-care (01) ==
LOC: JP.ED 14:31
DX: G89.3 Neoplasm related pain (acute) (chronic) (principal); C71.9 Malignant neoplasm of brain, unspecified; F32.9 Major depressive disorder, single episode, unspecified; Z88.6 Allergy status to analgesic agent; Z88.8 Allergy status to other drugs, medicaments and biological substances; Z88.5 Allergy status to narcotic agent; Z79.899 Other long term (current) drug therapy
CPT/HCPCS: 96361; 96374; 96375; 99283; J1170; J2765; J7030

== ENCOUNTER 2018-10-15 14:06 | Emergency (ER) | payer MEDICAID | END 2018-10-15 15:49 | disposition left against medical advice (07) | LOC: JP.ED 14:06 | DX: Z53.21 Procedure and treatment not carried out due to patient leaving prior to being seen by health care provider (principal) ==

== ENCOUNTER 2018-12-02 23:08 | Emergency (ER) | payer MEDICAID ==
[2018-12-02 23:32] VITALS: BP 127/80; PULSE 67
--- NOTE | 2018-12-03 | EDM.PDOC ---
ED HPI GENERAL MEDICAL PROBLEM - General Chief Complaint: Headache Stated Complaint: HEAD PAIN FROM TUMOR Time Seen by Provider: 12/02/18 23:42 Source of Information: Reports: Patient, Old Records, RN Notes Reviewed History Limitations: Reports: No Limitations - History of Present Illness INITIAL COMMENTS - FREE TEXT/NARRATIVE: 33-year-old gentleman presents to the emergency department with request of narcotic medications, he has been seen in this emergency department multiple times for request of narcotic medications. The story is very similar each time in that he cannot take his own medications because of nausea and vomiting he took his last dose of Dilaudid at home and vomited it up. However when I did review his records and his records in the [facility] there is a flag from Dr. Phan who Johny has seen from neurology who states no narcotic medication should be given to this patient, also there is a note from Dr. Brand in our [facility] system states not to be getting any medications I did speak with Dr. Brand this evening he tells me he is not resposible for opiate medications with this patient. I did confront Johny with this and offered him alternatives to narcotics he declined and abruptly left before being discharged or any examination Headache Pain Score (Numeric/FACES): 9 - Related Data Allergies Allergy/AdvReac Type Severity Reaction Status Date / Time haloperidol [From Haldol] Allergy Mild Rash Verified 12/02/18 23:26 oxycodone AdvReac Nausea Verified 12/02/18 23:26 tramadol AdvReac Nausea Verified 12/02/18 23:26 Home Meds: Home Meds Ondansetron [Zofran ODT] 8 mg PO Q6H PRN 07/03/16 [History] OLANZapine [ZyPREXA] 7.5 mg PO DAILY 09/11/17 [History] DULoxetine [Cymbalta] 60 mg PO DAILY 10/15/17 [History] Morphine [MS Contin] 60 mg PO Q12H PRN #2 tab.er 05/07/18 [Rx] HYDROmorphone [Dilaudid] 4 mg PO Q4H PRN 05/14/18 [History] Past Medical History HEENT History: Reports: Head, Other (See Below) Other HEENT History: brain tumor Respiratory History: Reports: Pneumothorax Other Respiratory History: bilateral Musculoskeletal History: Reports: Fracture Neurological History: Reports: Brain Injury, Concussion, Head Trauma, Migraines Other Neuro History: 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 Psychiatric History: Reports: Depression Immunologic History: Reports: Immunosuppression Other Immunologic History: radiation therapy Oncologic (Cancer) History: Reports: Brain Other Oncologic History: Finished 6 weeks of radiation therapy for brain cancer on monday07/01/16 - Infectious Disease History Infectious Disease History: Reports: Chicken Pox - Past Surgical History Head Surgeries/Procedures: Reports: Craniotomy Other HEENT Surgeries/Procedures: surgery brain tumor Musculoskeletal Surgical History: Reports: Other (See Below) Other Musculoskeletal Surgeries/Procedures:: left knee acl reconstruction Dermatological Surgical History: Reports: None Social & Family History - Family History Family Medical History: Noncontributory - Tobacco Use Smoking Status *Q: Never Smoker - Caffeine Use Caffeine Use: Reports: None Other Caffeine Use: 2 cups per day of coffee and energy drinks - Recreational Drug Use Recreational Drug Use: No ED ROS GENERAL - Review of Systems Review Of Systems: Unable To Obtain ED EXAM, GENERAL - Physical Exam Exam: See Below Exam Limited By: No Limitations General Appearance: Alert, WD/WN, No Apparent Distress Course - Vital Signs Last Recorded V/S: Last Vital Signs Temp 98.8 F 12/02/18 23:33 Pulse 67 12/02/18 23:33 Resp 17 12/02/18 23:33 BP 127/80 12/02/18 23:33 Pulse Ox 99 12/02/18 23:33 Departure - Departure Time of Disposition: 00:00 Disposition: Left Without Being Seen 07 Condition: Poor Clinical Impression: Drug-seeking behavior - Discharge Information Referrals: Keny Brand MD [Primary Care Provider] -
== END 2018-12-03 00:05 | disposition left against medical advice (07) ==
LOC: JP.ED 23:08 → EEVIPCON 23:08 → JP.ED 12-03 00:05
DX: Z76.5 Malingerer [conscious simulation] (principal); Z53.21 Procedure and treatment not carried out due to patient leaving prior to being seen by health care provider; F32.9 Major depressive disorder, single episode, unspecified; Z88.5 Allergy status to narcotic agent; Z88.8 Allergy status to other drugs, medicaments and biological substances; Z79.899 Other long term (current) drug therapy

== ENCOUNTER 2019-12-01 13:54 | Emergency (ER) | payer SELFPAY ==
[2019-12-01 14:28] VITALS: BP 141/81; PULSE 81
--- NOTE | 2019-12-01 15:35 | EDM.PDOC ---
ED HPI GENERAL MEDICAL PROBLEM - General Chief Complaint: Headache Stated Complaint: PAIN FROM BRAIN TUMOR Time Seen by Provider: 12/01/19 14:50 Source of Information: Reports: Patient, RN Notes Reviewed History Limitations: Reports: No Limitations - History of Present Illness INITIAL COMMENTS - FREE TEXT/NARRATIVE: Johny presents today for complaints of pain flare to his head. He states pain is 7/10 to the front part of his head with nausea, sensitivity to light. He states he ate eggs and toast for breakfast today, took his MS contin and vomited it up. He states this was his last dose of his pain medication and he feels like he is going into withdrawals. He states he has zofran at home for nausea and this works most of the time. He did take zofran at 0830 today. He denies fever, chills, any recent trauma or injury. Johny reports current care under Dr. Eaton [facility] [phone]. Headache Pain Score (Numeric/FACES): 7 - Related Data Allergies Allergy/AdvReac Type Severity Reaction Status Date / Time haloperidol [From Haldol] Allergy Mild Rash Verified 12/01/19 14:29 oxycodone AdvReac Nausea Verified 12/01/19 14:29 tramadol AdvReac Nausea Verified 12/01/19 14:29 Home Meds: Home Meds Ondansetron [Zofran ODT] 8 mg PO Q6H PRN 07/03/16 [History] OLANZapine [ZyPREXA] 7.5 mg PO DAILY 09/11/17 [History] DULoxetine [Cymbalta] 90 mg PO DAILY 10/15/17 [History] Morphine [MS Contin] 60 mg PO Q12H PRN #2 tab.er 05/07/18 [Rx] HYDROmorphone [Dilaudid] 4 mg PO Q4H PRN 05/14/18 [History] Past Medical History HEENT History: Reports: Head, Other (See Below) Other HEENT History: brain tumor Respiratory History: Reports: Pneumothorax Other Respiratory History: bilateral Musculoskeletal History: Reports: Fracture Neurological History: Reports: Brain Injury, Concussion, Head Trauma, Migraines Other Neuro History: 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 Psychiatric History: Reports: Depression Immunologic History: Reports: Immunosuppression Other Immunologic History: radiation therapy Oncologic (Cancer) History: Reports: Brain Other Oncologic History: Finished 6 weeks of radiation therapy for brain cancer on monday07/01/16 - Infectious Disease History Infectious Disease History: Reports: Chicken Pox - Past Surgical History Head Surgeries/Procedures: Reports: Craniotomy Other HEENT Surgeries/Procedures: surgery brain tumor Respiratory Surgical History: Reports: None Neurological Surgical History: Reports: None Musculoskeletal Surgical History: Reports: Other (See Below) Other Musculoskeletal Surgeries/Procedures:: left knee acl reconstruction Oncologic Surgical History: Reports: None Dermatological Surgical History: Reports: None Social & Family History - Family History Family Medical History: Noncontributory - Tobacco Use Tobacco Use Status *Q: Never Tobacco User Second Hand Smoke Exposure: No - Caffeine Use Caffeine Use: Reports: Energy Drinks Other Caffeine Use: 2 cups per day of coffee and energy drinks - Recreational Drug Use Recreational Drug Use: No ED ROS GENERAL - Review of Systems Review Of Systems: See Below Constitutional: Reports: Other (Headache, out of pain medication. ) HEENT: Denies: Ear Discharge, Ear Pain, Eye Discharge, Eye Pain, Hearing Loss, Nose Pain, Sinus Problem, Throat Pain, Throat Swelling, Vertigo, Vision Change Respiratory: Reports: No Symptoms Cardiovascular: Reports: No Symptoms Endocrine: Reports: No Symptoms GI/Abdominal: Reports: Nausea (off and on since this morning), Vomiting (last this morning at 0900). Denies: Abdominal Pain, Diarrhea, Difficulty Swallowing : Reports: No Symptoms Musculoskeletal: Reports: No Symptoms Skin: Reports: No Symptoms Neurological: Reports: Headache. Denies: Confusion, Dizziness, Numbness, Paresthesia, Seizure, Syncope, Tingling, Tremors, Trouble Speaking, Difficulty Walking, Weakness, Change in Speech, Gait Disturbance Psychiatric: Reports: No Symptoms Hematologic/Lymphatic: Reports: No Symptoms Immunologic: Reports: No Symptoms - Physical Exam Exam: See Below Exam Limited By: No Limitations General Appearance: Alert, WD/WN, No Apparent Distress, Other (no tremors, diaphoresis noted. ) Eye Exam: Bilateral Eye: Normal Inspection, PERRL Ears: Normal External Exam, Normal Canal, Hearing Grossly Normal, Normal TMs Nose: Normal Inspection, Normal Mucosa, No Blood Throat/Mouth: Normal Inspection, Normal Lips, Normal Gums, Normal Oropharynx, Normal Voice, No Airway Compromise Head Exam: Atraumatic, Normocephalic Neck: Normal Inspection, Supple, Non-Tender, Full Range of Motion. No: Lymphadenopathy (R), Lymphadenopathy (L) Respiratory/Chest: No Respiratory Distress, Lungs Clear, Normal Breath Sounds, No Accessory Muscle Use, Chest Non-Tender Cardiovascular: Normal Peripheral Pulses, Regular Rate, Rhythm, No Edema, No Gallop, No Murmur, No Rub. No: Tachycardia Neuro Exam (Abbreviated): Alert, Oriented, Normal Cognition, Normal Gait, No Motor/Sensory Deficits Back Exam: Normal Inspection, Full Range of Motion. No: CVA Tenderness (R), CVA Tenderness (L) Extremities: Normal Inspection, Normal Range of Motion, Non-Tender, No Pedal Edema, Normal Capillary Refill Psychiatric: Normal Affect, Normal Mood Skin Exam: Warm, Dry, Intact, Normal Color, No Rash Course - Vital Signs Last Recorded V/S: Last Vital Signs Temp 36.8 C 12/01/19 14:27 Pulse 81 12/01/19 14:27 Resp 16 12/01/19 14:27 BP 141/81 H 12/01/19 14:27 Pulse Ox 98 12/01/19 14:27 - Re-Assessments/Exams Free Text/Narrative Re-Assessment/Exam: 12/01/19 15:00 Exam, vital signs and history reviewed with patient. [place] [employer] reviewed, noted 182 prescriptions by 14 different providers and 5 different pharmacies the past 12 months with current MME/day 177.00 and 30 day average of 264.37 for narcotics excluding buprenorphine. No sedatives or buprenorphine. Fill history: 11/28/2019 Morphine Sulf ER 60mg tablet #7 for 4 days 11/28/2019 Hydromorphone 4mg tablet #18 for 4 days 11/23/2019 Hydromorphone 4mg tablet #35 for 7 days 11/23/2019 Morphine Sulf ER 60mg tablet #14 for 7 days 11/18/2019 Morphine Sulf ER 60mg tablet #14 for 7 days 11/18/2019 Hydromorphone 4mg tablet #35 for 7 days 11/13/2019 Hydromorphone 4mg tablet #20 for 4 days 11/13/2019 Morphine Sulf ER 60mg tablet #8 for 4 days 11/07/2019 Morphine Sulf ER 60mg tablet #14 for 7 days 11/07/2019 Hydromorphone 4mg tablet #35 for 5 days 11/04/2019 Morphine Sulf ER 60mg tablet #14 for 7 days 11/04/2019 Hydromorphone 4mg tablet #35 for 5 days 11/01/2019 Morphine Sulf ER 60mg tablet #4 for 2 days 11/01/2019 Hydromorphone 4mg tablet #10 for 1 day 11/01/2019 Vyvanse 20mg capsule #180 for 90 days Plus additional prescriptions - please see print out of [place] [employer]. Case discussed with DrAlexi Officer, DrAlexi Officer is in agreement with plan to offer non-opiate, non-narcotic options to patient for pain/nausea. Free Text/Narrative Re-Assessment/Exam: [place] [employer] printed and reviewed with patient. Attempts at discussion of safe opiate and stimulant use, patient declined discussion. Johny repeated "Cant you just give me 1mg of dilaudid shot" I have so much pain, I just need a shot. Johny states "I have some dilaudid left but I will go into withdrawals". Offers of 5 different non-narcotic medications to assist with pain were refused by patient. Offers of 3 other antiemetics were refused by patient. Attempts to discuss current stable examination and vital signs were refused by patient. Patient advised to contact his primary provider and discuss his symptoms and running out of controlled substances. I offered the choice of 5 different pain medications, IV hydration and 3 different antiemetics, they were all refused by patient. He asked "Cant you just give me 1mg of dilaudid shot". Patient was advised that it is not safe to provide additional narcotic medication to him due to 182 prescriptions by 14 different providers and 5 different pharmacies the past 12 months with current MME/day 177.00 and 30 day average of 264.37 for narcotics excluding buprenorphine. Patient stated "So you won't give me any dilaudid". Patient was informed that it was not safe to provide him any narcotic or controlled substance at this time. Patient stood up from exam table and walked out of emergency room. Departure - Departure Time of Disposition: 15:15 Disposition: Eloped 07 Condition: Undetermined (Patient eloped ) Clinical Impression: Chronic pain Qualifiers: Chronic pain type: due to neoplasm Qualified Code(s): G89.3 - Neoplasm related pain (acute) (chronic) - Discharge Information *PRESCRIPTION DRUG MONITORING PROGRAM REVIEWED*: Yes *COPY OF PRESCRIPTION DRUG MONITORING REPORT IN PATIENT RAMÓN: Yes Referrals: PCP,None [Primary Care Provider] - Forms: ED Department Discharge Additional Instructions: Patient walked out of emergency room after he was advised he would not be provided a shot of dilaudid. Sepsis Event Note (ED) - Evaluation Sepsis Screening Result: No Definite Risk - Focused Exam Vital Signs: Vital Signs Temp Pulse Resp BP Pulse Ox 12/01/19 14:27 36.8 C 81 16 141/81 H 98
== END 2019-12-01 15:17 | disposition left against medical advice (07) ==
LOC: JP.ED 13:54
DX: G89.3 Neoplasm related pain (acute) (chronic) (principal); F32.9 Major depressive disorder, single episode, unspecified; Z88.5 Allergy status to narcotic agent; Z88.8 Allergy status to other drugs, medicaments and biological substances; Z79.899 Other long term (current) drug therapy
CPT/HCPCS: 99283

== ENCOUNTER 2021-06-19 20:27 | Emergency (ER) | payer SELFPAY ==
[2021-06-19 20:46] VITALS: BP 115/77
[2021-06-19] MEDS ORDERED: fentaNYL 50 MCG/HR Transdermal Patch TRDERM SCH (22:00)
[2021-06-19 22:38] VITALS: PULSE 98
== END 2021-06-19 22:38 | disposition home or self-care (01) ==
LOC: JP.ED 20:27
DX: G89.3 Neoplasm related pain (acute) (chronic) (principal); Z79.899 Other long term (current) drug therapy; Z88.8 Allergy status to other drugs, medicaments and biological substances; Z88.5 Allergy status to narcotic agent
CPT/HCPCS: 99283; A9270

== ENCOUNTER 2022-01-07 22:16 | Emergency (ER) | payer MEDICAID, MEDICARE ==
[2022-01-07 22:57] VITALS: BP 117/74; PULSE 84
[2022-01-07] MEDS ORDERED: fentaNYL 100 MCG/HR Transdermal Patch TRDERM SCH (23:00)
== END 2022-01-07 23:44 | disposition home or self-care (01) ==
LOC: JP.ED 22:16
DX: D44.4 Neoplasm of uncertain behavior of craniopharyngeal duct (principal); Z88.8 Allergy status to other drugs, medicaments and biological substances; Z88.5 Allergy status to narcotic agent
CPT/HCPCS: 99283; A9270

== ENCOUNTER 2022-05-27 17:51 | Emergency (ER) | payer MEDICARE ==
[2022-05-27] MEDS ORDERED: fentaNYL 50 MCG/HR Transdermal Patch TRDERM SCH (18:15)
[2022-05-27 18:19] VITALS: BP 125/84; PULSE 88
== END 2022-05-27 18:30 | disposition home or self-care (01) ==
LOC: JP.ED 17:51
DX: G89.3 Neoplasm related pain (acute) (chronic) (principal); Z88.5 Allergy status to narcotic agent
CPT/HCPCS: 99282; A9270

== ENCOUNTER 2022-06-19 11:26 | Emergency (ER) | payer MEDICARE ==
[2022-06-19 13:11] VITALS: BP 113/75; PULSE 93
== END 2022-06-19 13:27 | disposition left against medical advice (07) ==
LOC: JP.ED 11:26
DX: F11.90 Opioid use, unspecified, uncomplicated (principal); Z88.5 Allergy status to narcotic agent
CPT/HCPCS: 99281

== ENCOUNTER 2022-07-25 08:34 | Emergency (ER) | payer MEDICARE ==
[2022-07-25 08:44] VITALS: BP 116/78; PULSE 67
== END 2022-07-25 09:00 | disposition left against medical advice (07) ==
LOC: JP.ED 08:34
DX: D44.4 Neoplasm of uncertain behavior of craniopharyngeal duct (principal); F14.90 Cocaine use, unspecified, uncomplicated; Z76.5 Malingerer [conscious simulation]; Z88.8 Allergy status to other drugs, medicaments and biological substances; Z88.5 Allergy status to narcotic agent
CPT/HCPCS: 99283

== ENCOUNTER 2022-09-11 12:00 | Emergency (ER) | payer MEDICARE, MEDICAID ==
[2022-09-11 12:30] VITALS: BP 144/78; PULSE 56
[2022-09-11] MEDS ORDERED: Ondansetron 4 MG/2 ML SDV IVPUSH ONE (12:40)
[2022-09-11] MEDS ORDERED: Sodium Chloride 0.9% 10 ML Syringe FLUSH PRN (12:40)
[2022-09-11] MEDS ORDERED: droPERidol 5 MG/2 ML SDV IVPUSH ONE (12:41)
[2022-09-11] MEDS ORDERED: Sodium Chloride 0.9% 1,000 ML IV SCH (12:45)
[2022-09-11] MEDS ORDERED: HYDROmorphone 1 MG/ML Syringe IVPUSH PRN (13:14)
== END 2022-09-11 13:48 | disposition home or self-care (01) ==
LOC: JP.ED 12:00
DX: R11.2 Nausea with vomiting, unspecified (principal); Z88.8 Allergy status to other drugs, medicaments and biological substances; Z88.5 Allergy status to narcotic agent; Z79.899 Other long term (current) drug therapy
CPT/HCPCS: 96361; 96374; 96375; 99283; J1170; J1790; J2405; J7030

== ENCOUNTER 2022-09-18 19:09 | Emergency (ER) | payer MEDICARE, MEDICAID ==
[2022-09-18 20:07] VITALS: BP 129/78; PULSE 84
== END 2022-09-18 21:30 | disposition home or self-care (01) ==
LOC: JP.ED 19:09
DX: F11.90 Opioid use, unspecified, uncomplicated (principal); R51.9 Headache, unspecified; Z76.5 Malingerer [conscious simulation]; Z88.5 Allergy status to narcotic agent; Z88.8 Allergy status to other drugs, medicaments and biological substances
CPT/HCPCS: 99283

== ENCOUNTER 2022-09-26 17:49 | Emergency (ER) | payer MEDICARE, MEDICAID ==
[2022-09-26 18:06] VITALS: BP 120/78; PULSE 69
[2022-09-26] MEDS ORDERED: Ketorolac 15 MG/ML SDV IVPUSH ONE (18:45)
[2022-09-26 18:46] LABS: BASOPHILS ABSOLUTE AUTO 0.08 K/uL (0.00-0.10); BASOPHILS PERCENT AUTO 0.9 % (0.1-1.3); EOSINOPHILS ABSOLUTE AUTO 0.21 K/uL (0.00-0.40); EOSINOPHILS PERCENT AUTO 2.5 % (0.0-5.4); HEMATOCRIT 33.9 % (38.4-49.7); HEMOGLOBIN 11.7 g/dL (12.9-16.9); IMMATURE GRAN ABSOLUTE AUTO 0.03 K/uL (0.00-0.23); IMMATURE GRAN PERCENT AUTO 0.4 % (0.0-0.7); LYMPHOCYTES ABSOLUTE AUTO 2.29 K/uL (0.8-3.3); LYMPHOCYTES PERCENT AUTO 26.9 % (11.4-47.7); MEAN CORPUSCULAR HGB CONC 34.5 g/dL (31.6-35.5); MEAN CORPUSCULAR VOLUME 83.9 fL (81.4-99.0); MONOCYTES ABSOLUTE AUTO 0.44 K/uL (0.20-0.90); MONOCYTES PERCENT AUTO 5.2 % (3.3-12.6); NEUTROPHILS ABSOLUTE AUTO 5.47 K/uL (1.0-7.6); NEUTROPHILS PERCENT AUTO 64.1 % (40.0-78.1); PLATELET COUNT,PLT 259 K/uL (130-375); RED BLOOD CELL COUNT 4.04 M/uL (4.14-5.76); WHITE BLOOD CELL COUNT,WBC 8.5 K/uL (3.2-11.0)
[2022-09-26 19:01] LABS: CALCIUM 8.6 mg/dL (8.5-10.1); CREATININE 0.8 mg/dL (0.8-1.3); EST CRCL DRUG DOSING (CG) 148.42 mL/min; POTASSIUM,K 3.7 mmol/L (3.6-5.2)
[2022-09-26 19:02] LABS: ANION GAP 11.7 mmol/L (5.0-14.0)
[2022-09-26] MEDS: Sodium Chloride 0.9% 1,000 ML IV ONE ×2 (19:39→19:43)
== END 2022-09-26 20:05 | disposition home or self-care (01) ==
LOC: JP.ED 17:49
DX: R51.9 Headache, unspecified (principal); Z88.5 Allergy status to narcotic agent; Z88.8 Allergy status to other drugs, medicaments and biological substances; Z86.011 Personal history of benign neoplasm of the brain
CPT/HCPCS: 36415; 80048; 85025; 96374; 99283; 99284-25; J1885; J7030

== ENCOUNTER 2022-09-29 13:03 | Emergency (ER) | payer MEDICARE, MEDICAID ==
[2022-09-29 14:36] VITALS: BP 113/67; PULSE 74
[2022-09-29] MEDS ORDERED: Sodium Chloride 0.9% 1,000 ML IV SCH (15:00)
[2022-09-29] MEDS ORDERED: Prochlorperazine 10 MG/2 ML SDV IVPUSH ONE (15:00)
[2022-09-29] MEDS ORDERED: HYDROmorphone 1 MG/ML Syringe IVPUSH ONE (15:01)
[2022-09-29] MEDS ORDERED: diphenhydrAMINE 50 MG/ML SDV IVPUSH ONE (15:01)
== END 2022-09-29 16:57 | disposition home or self-care (01) ==
LOC: JP.ED 13:03
DX: R51.9 Headache, unspecified (principal); Z88.5 Allergy status to narcotic agent
CPT/HCPCS: 96361; 96374; 96375; 99283; J0780; J1170; J1200; J7030

== ENCOUNTER 2022-10-10 15:18 | Emergency (ER) | payer MEDICARE, MEDICAID | END 2022-10-10 15:40 | disposition left against medical advice (07) | LOC: JP.ED 15:18 | DX: Z53.21 Procedure and treatment not carried out due to patient leaving prior to being seen by health care provider (principal) ==

== ENCOUNTER 2022-10-10 17:23 | Emergency (ER) | payer MEDICARE, MEDICAID ==
[2022-10-10 19:33] VITALS: BP 99/63; PULSE 62
== END 2022-10-10 19:59 | disposition left against medical advice (07) ==
LOC: JP.ED 17:23
DX: R51.9 Headache, unspecified (principal); Z88.5 Allergy status to narcotic agent; Z88.8 Allergy status to other drugs, medicaments and biological substances
CPT/HCPCS: 99283

== ENCOUNTER 2022-11-16 09:43 | Emergency (ER) | payer MEDICAID, MEDICARE ==
[2022-11-16 09:52] VITALS: BP 127/73; PULSE 75
[2022-11-16] MEDS ORDERED: Ondansetron 4 MG/2 ML SDV IVPUSH ONE (10:10)
[2022-11-16] MEDS ORDERED: Ketorolac 30 MG/ML SDV IVPUSH ONE (10:10)
[2022-11-16] MEDS ORDERED: Sodium Chloride 0.9% 1,000 ML IV SCH (10:15)
== END 2022-11-16 11:10 | disposition left against medical advice (07) ==
LOC: JP.ED 09:43
DX: F11.90 Opioid use, unspecified, uncomplicated (principal); Z76.5 Malingerer [conscious simulation]; Z88.5 Allergy status to narcotic agent; Z88.8 Allergy status to other drugs, medicaments and biological substances
CPT/HCPCS: 96374; 96375; 99283; J1885; J2405; J7030

== ENCOUNTER 2022-12-29 06:31 | Emergency (ER) | payer MEDICARE ==
[2022-12-29 07:18] VITALS: BP 114/60; PULSE 72
[2022-12-29] MEDS ORDERED: Sodium Chloride 0.9% 10 ML Syringe FLUSH PRN (07:29)
[2022-12-29] MEDS ORDERED: Lactated Ringers 1,000 ML IV ONE (07:29)
[2022-12-29] MEDS ORDERED: droPERidol 5 MG/2 ML SDV IVPUSH ONE (07:29)
== END 2022-12-29 09:01 | disposition home or self-care (01) ==
LOC: JP.ED 06:31
DX: R51.9 Headache, unspecified (principal); Z88.8 Allergy status to other drugs, medicaments and biological substances; Z88.5 Allergy status to narcotic agent
CPT/HCPCS: 96361; 96374; 99283; 99283-25; J1790; J3490; J7120

== ENCOUNTER 2023-01-05 09:43 | Emergency (ER) | payer MEDICARE ==
[2023-01-05 11:00] VITALS: BP 110/76; PULSE 97
[2023-01-05] MEDS ORDERED: droPERidol 1.25 MG in Sodium Chloride 0.9% 50 ML IV ONE (11:24)
[2023-01-05] MEDS ORDERED: HYDROmorphone 0.5 MG/0.5 ML Syringe IVPUSH ONE (11:26)
[2023-01-05] MEDS ORDERED: Cyclobenzaprine 10 MG Tab PO ONE (11:27)
[2023-01-05] MEDS ORDERED: Sodium Chloride 0.9% 1,000 ML IV SCH (11:30)
[2023-01-05] MEDS ORDERED: droPERidol 5 MG/2 ML SDV IV ONE (13:00)
== END 2023-01-05 13:42 | disposition home or self-care (01) ==
LOC: JP.ED 09:43
DX: G44.209 Tension-type headache, unspecified, not intractable (principal); F11.90 Opioid use, unspecified, uncomplicated; Z79.899 Other long term (current) drug therapy; Z88.5 Allergy status to narcotic agent; Z88.8 Allergy status to other drugs, medicaments and biological substances
CPT/HCPCS: 96361; 96374; 96375; 99283; A9270; J1170; J1790; J7030

== ENCOUNTER 2023-01-21 23:44 | Emergency (ER) | payer MEDICARE ==
[2023-01-22 00:05] VITALS: BP 120/67; PULSE 100
[2023-01-22] MEDS ORDERED: HYDROmorphone 1 MG/ML Syringe IVPUSH ONE (00:50)
[2023-01-22] MEDS ORDERED: Sodium Chloride 0.9% 1,000 ML IV SCH (01:00)
== END 2023-01-22 02:57 | disposition home or self-care (01) ==
LOC: JP.ED 23:44
DX: G43.909 Migraine, unspecified, not intractable, without status migrainosus (principal); Z79.899 Other long term (current) drug therapy; Z88.5 Allergy status to narcotic agent; Z88.8 Allergy status to other drugs, medicaments and biological substances
CPT/HCPCS: 96361; 96374; 99283; J1170; J7030

== ENCOUNTER 2023-01-27 19:07 | Emergency (ER) | payer MEDICARE ==
[2023-01-27] MEDS ORDERED: droPERidol 5 MG/2 ML SDV IVPUSH ONE (19:43)
[2023-01-27] MEDS ORDERED: Ketorolac 30 MG/ML SDV IVPUSH ONE (19:43)
[2023-01-27] MEDS ORDERED: Sodium Chloride 0.9% 10 ML Syringe FLUSH PRN (19:44)
[2023-01-27] MEDS ORDERED: Lactated Ringers 1,000 ML IV ONE (19:44)
[2023-01-27 21:15] VITALS: BP 121/86; PULSE 85
== END 2023-01-27 21:12 | disposition home or self-care (01) ==
LOC: JP.ED 19:07
DX: R51.9 Headache, unspecified (principal); Z88.6 Allergy status to analgesic agent
CPT/HCPCS: 96374; 96375; 99283; J1790; J1885; J7120

== ENCOUNTER 2023-01-28 19:48 | Emergency (ER) | payer MEDICAID, MEDICARE, OTHER ==
[2023-01-28 20:23] VITALS: BP 125/78; PULSE 92
== END 2023-01-28 20:24 | disposition home or self-care (01) ==
LOC: JP.ED 19:48
DX: R51.9 Headache, unspecified (principal); Z88.5 Allergy status to narcotic agent; Z88.6 Allergy status to analgesic agent; Z79.899 Other long term (current) drug therapy
CPT/HCPCS: 99283

== ENCOUNTER 2023-02-18 20:33 | Emergency (ER) | payer MEDICARE ==
[2023-02-18 20:43] VITALS: BP 105/70; PULSE 86
[2023-02-18] MEDS ORDERED: Sodium Chloride 0.9% 10 ML Syringe FLUSH PRN (21:15)
[2023-02-18] MEDS ORDERED: droPERidol 5 MG/2 ML SDV IVPUSH ONE (21:15)
[2023-02-18] MEDS ORDERED: Lactated Ringers 1,000 ML IV ONE (21:15)
[2023-02-18] MEDS ORDERED: Ketorolac 30 MG/ML SDV IVPUSH ONE (21:15)
== END 2023-02-18 22:59 | disposition home or self-care (01) ==
LOC: JP.ED 20:33
DX: R51.9 Headache, unspecified (principal); Z79.899 Other long term (current) drug therapy; Z88.7 Allergy status to serum and vaccine
CPT/HCPCS: 96374; 96375; 99283; J1790; J1885; J3490; J7120

== ENCOUNTER 2023-02-20 18:43 | Emergency (ER) | payer MEDICARE ==
[2023-02-20 18:53] VITALS: BP 111/74; PULSE 90
[2023-02-20] MEDS ORDERED: Ketorolac 30 MG/ML SDV IVPUSH ONE (20:02)
[2023-02-20] MEDS ORDERED: Sodium Chloride 0.9% 10 ML Syringe FLUSH PRN (20:02)
[2023-02-20] MEDS ORDERED: Sodium Chloride 0.9% 1,000 ML IV SCH (20:15)
== END 2023-02-20 20:50 | disposition home or self-care (01) ==
LOC: JP.ED 18:43
DX: G44.52 New daily persistent headache (NDPH) (principal); Z88.5 Allergy status to narcotic agent; Z88.8 Allergy status to other drugs, medicaments and biological substances
CPT/HCPCS: 96374; 99283; J1885; J3490; J7030

== ENCOUNTER 2023-02-26 07:08 | Emergency (ER) | payer MEDICARE ==
[2023-02-26 07:25] VITALS: BP 104/75; PULSE 82
[2023-02-26] MEDS ORDERED: HYDROmorphone 1 MG/ML Syringe IVPUSH ONE (07:43)
[2023-02-26] MEDS ORDERED: Sodium Chloride 0.9% 1,000 ML IV SCH (07:45)
== END 2023-02-26 09:07 | disposition home or self-care (01) ==
LOC: JP.ED 07:08
DX: R51.9 Headache, unspecified (principal); Z88.8 Allergy status to other drugs, medicaments and biological substances; Z79.899 Other long term (current) drug therapy
CPT/HCPCS: 96361; 96374; 99283; 99284; J1170; J7030

== ENCOUNTER 2023-04-01 16:58 | Emergency (ER) | payer MEDICARE ==
[2023-04-01 17:17] VITALS: BP 108/74; PULSE 100
[2023-04-01 18:08] LABS: CORONAVIRUS COVID-19 NAA NEGATIVE (NEGATIVE); INFLUENZA A NAA NEGATIVE (NEGATIVE); INFLUENZA B NAA NEGATIVE (NEGATIVE); RESPIRATORY SYNCYTIAL VIR NAA NEGATIVE (NEGATIVE)
[2023-04-01 18:39] LABS: BASOPHILS ABSOLUTE AUTO 0.07 K/uL (0.00-0.10); BASOPHILS PERCENT AUTO 0.8 % (0.1-1.3); EOSINOPHILS ABSOLUTE AUTO 0.32 K/uL (0.00-0.40); EOSINOPHILS PERCENT AUTO 3.8 % (0.0-5.4); HEMATOCRIT 36.9 % (38.4-49.7); HEMOGLOBIN 12.9 g/dL (12.9-16.9); IMMATURE GRAN PERCENT AUTO 0.2 % (0.0-0.7); LYMPHOCYTES ABSOLUTE AUTO 2.28 K/uL (0.8-3.3); LYMPHOCYTES PERCENT AUTO 27.2 % (11.4-47.7); MEAN CORPUSCULAR VOLUME 82.9 fL (81.4-99.0); MONOCYTES ABSOLUTE AUTO 0.56 K/uL (0.20-0.90); MONOCYTES PERCENT AUTO 6.7 % (3.3-12.6); NEUTROPHILS ABSOLUTE AUTO 5.12 K/uL (1.0-7.6); NEUTROPHILS PERCENT AUTO 61.3 % (40.0-78.1); PLATELET COUNT,PLT 270 K/uL (130-375); RED BLOOD CELL COUNT 4.45 M/uL (4.14-5.76); WHITE BLOOD CELL COUNT,WBC 8.4 K/uL (3.2-11.0)
[2023-04-01 18:41] LABS: IMMATURE GRAN ABSOLUTE AUTO 0.02 K/uL (0.00-0.23)
[2023-04-01 19:00] LABS: A/G RATIO 0.9 (1.2-2.2); ALANINE AMINOTRANSFERASE,ALT 34 U/L (12-78); ALBUMIN 4.1 g/dL (3.4-5.0); ALKALINE PHOSPHATASE 80 U/L (46-116); ASPARTATE AMNIOTRANSFERASE,AST 25 U/L (15-37); BILIRUBIN TOTAL 1.1 mg/dL (0.2-1.0); BLOOD UREA NITROGEN,BUN 11 mg/dL (7-18); CALCIUM 8.6 mg/dL (8.5-10.1); CARBON DIOXIDE,CO2 26 mmol/L (21-32); CHLORIDE,CL 96 mmol/L (100-108); CREATININE 0.8 mg/dL (0.8-1.3); EST CRCL DRUG DOSING (CG) 140.11 mL/min; ESTIMATED GFR 118 mL/min (>60); GLUCOSE RANDOM 110 mg/dL (74-106); POTASSIUM,K 3.9 mmol/L (3.6-5.2); PROTEIN TOTAL,TP 8.5 g/dL (6.4-8.2); SODIUM,NA 131 mmol/L (140-148)
[2023-04-01 19:01] LABS: ANION GAP 12.9 mmol/L (5.0-14.0)
[2023-04-01] MEDS: HYDROmorphone 1 MG/ML Syringe IM ONE (19:44)
== END 2023-04-01 20:06 | disposition home or self-care (01) ==
LOC: JP.ED 16:58
DX: R10.10 Upper abdominal pain, unspecified (principal); Z88.8 Allergy status to other drugs, medicaments and biological substances; Z88.5 Allergy status to narcotic agent; Z88.6 Allergy status to analgesic agent; Z79.899 Other long term (current) drug therapy; Z86.19 Personal history of other infectious and parasitic diseases
CPT/HCPCS: 0241U; 36415; 80053; 83605; 83690; 85025; 96372; 99284; J1170

== ENCOUNTER 2023-04-08 08:17 | Emergency (ER) | payer MEDICARE ==
[2023-04-08 08:44] VITALS: BP 120/61; PULSE 76
[2023-04-08] MEDS: Ketorolac 30 MG/ML SDV IM ONE (09:05)
[2023-04-08 09:09] LABS: BASOPHILS ABSOLUTE AUTO 0.08 K/uL (0.00-0.10); EOSINOPHILS ABSOLUTE AUTO 0.39 K/uL (0.00-0.40); EOSINOPHILS PERCENT AUTO 4.9 % (0.0-5.4); HEMATOCRIT 34.5 % (38.4-49.7); IMMATURE GRAN PERCENT AUTO 0.2 % (0.0-0.7); LYMPHOCYTES ABSOLUTE AUTO 2.34 K/uL (0.8-3.3); LYMPHOCYTES PERCENT AUTO 29.1 % (11.4-47.7); MEAN CORPUSCULAR HEMOGLOBIN 29.5 pg (31.6-35.5); MEAN CORPUSCULAR HGB CONC 34.8 g/dL (31.6-35.5); MEAN CORPUSCULAR VOLUME 84.8 fL (81.4-99.0); MONOCYTES ABSOLUTE AUTO 0.42 K/uL (0.20-0.90); MONOCYTES PERCENT AUTO 5.2 % (3.3-12.6); NEUTROPHILS ABSOLUTE AUTO 4.79 K/uL (1.0-7.6); NEUTROPHILS PERCENT AUTO 59.6 % (40.0-78.1); PLATELET COUNT,PLT 255 K/uL (130-375); RED BLOOD CELL COUNT 4.07 M/uL (4.14-5.76)
[2023-04-08 09:11] LABS: IMMATURE GRAN ABSOLUTE AUTO 0.02 K/uL (0.00-0.23)
[2023-04-08 09:30] LABS: A/G RATIO 1.1 (1.2-2.2); ALANINE AMINOTRANSFERASE,ALT 19 U/L (12-78); ALBUMIN 3.8 g/dL (3.4-5.0); ALKALINE PHOSPHATASE 77 U/L (46-116); ANION GAP 14.4 mmol/L (5.0-14.0); ASPARTATE AMNIOTRANSFERASE,AST 17 U/L (15-37); BILIRUBIN TOTAL 0.3 mg/dL (0.2-1.0); BLOOD UREA NITROGEN,BUN 11 mg/dL (7-18); CALCIUM 8.8 mg/dL (8.5-10.1); CARBON DIOXIDE,CO2 28 mmol/L (21-32); CHLORIDE,CL 103 mmol/L (100-108); CREATININE 0.9 mg/dL (0.8-1.3); EST CRCL DRUG DOSING (CG) 124.54 mL/min; ESTIMATED GFR 114 mL/min (>60); GLUCOSE RANDOM 140 mg/dL (74-106); POTASSIUM,K 3.4 mmol/L (3.6-5.2); PROTEIN TOTAL,TP 7.4 g/dL (6.4-8.2); SODIUM,NA 142 mmol/L (140-148)
== END 2023-04-08 10:04 | disposition home or self-care (01) ==
LOC: JP.ED 08:17
DX: R10.11 Right upper quadrant pain (principal); Z79.899 Other long term (current) drug therapy; Z88.5 Allergy status to narcotic agent
CPT/HCPCS: 36415; 80053; 83605; 85025; 96372; 99284; J1885

== ENCOUNTER 2023-06-03 13:39 | Emergency (ER) | payer MEDICARE ==
[2023-06-03 15:09] VITALS: BP 108/69; PULSE 64
== END 2023-06-03 15:48 | disposition home or self-care (01) ==
LOC: JP.ED 13:39
DX: R10.9 Unspecified abdominal pain (principal); Z88.5 Allergy status to narcotic agent; Z88.8 Allergy status to other drugs, medicaments and biological substances; Z79.899 Other long term (current) drug therapy
CPT/HCPCS: 99283

== ENCOUNTER 2023-08-04 07:55 | Emergency (ER) | payer MEDICARE ==
[2023-08-04 08:12] VITALS: BP 139/89; PULSE 111
[2023-08-04] MEDS: Ketorolac 10 MG Tab PO ONE (08:39)
== END 2023-08-04 09:15 | disposition home or self-care (01) ==
LOC: JP.ED 07:55
DX: S60.222A Contusion of left hand, initial encounter (principal); Z88.5 Allergy status to narcotic agent; Z88.6 Allergy status to analgesic agent; Z79.899 Other long term (current) drug therapy; W22.8XXA Striking against or struck by other objects, initial encounter; Y93.89 Activity, other specified
CPT/HCPCS: 73110; 73120; 99283; A9270

== ENCOUNTER 2023-08-14 13:05 | Emergency (ER) | payer MEDICARE ==
[2023-08-14 13:23] VITALS: PULSE 71
[2023-08-14 13:25] VITALS: BP 117/70
== END 2023-08-14 13:49 | disposition home or self-care (01) ==
LOC: JP.ED 13:05
DX: Z76.0 Encounter for issue of repeat prescription (principal); Z79.899 Other long term (current) drug therapy; Z88.6 Allergy status to analgesic agent; Z88.5 Allergy status to narcotic agent
CPT/HCPCS: 99281; 99282

== ENCOUNTER 2023-10-27 04:43 | Emergency (ER) | payer MEDICARE ==
[2023-10-27 04:56] VITALS: BP 112/78; PULSE 103
[2023-10-27 05:30] LABS: APPEARANCE,URINE CLEAR (CLEAR); BILIRUBIN,URINE NEGATIVE (NEGATIVE); COLOR,URINE YELLOW (YELLOW); GLUCOSE,URINE NEGATIVE (NEGATIVE); KETONES,URINE NEGATIVE (NEGATIVE); LEUKOCYTE ESTERASE,URINE NEGATIVE (NEGATIVE); NITRITE,URINE NEGATIVE (NEGATIVE); OCCULT BLOOD,URINE NEGATIVE (NEGATIVE); PROTEIN,URINE NEGATIVE (NEGATIVE); UROBILINOGEN,URINE 0.2 EU/dL (0.2-1.0)
[2023-10-27 05:51] LABS: BASOPHILS ABSOLUTE AUTO 0.09 K/uL (0.00-0.10); BASOPHILS PERCENT AUTO 0.9 % (0.1-1.3); EOSINOPHILS ABSOLUTE AUTO 0.62 K/uL (0.00-0.40); EOSINOPHILS PERCENT AUTO 6.3 % (0.0-5.4); HEMATOCRIT 34.9 % (38.4-49.7); IMMATURE GRAN PERCENT AUTO 0.1 % (0.0-0.7); LYMPHOCYTES ABSOLUTE AUTO 3.18 K/uL (0.8-3.3); LYMPHOCYTES PERCENT AUTO 32.4 % (11.4-47.7); MEAN CORPUSCULAR HGB CONC 37.2 g/dL (31.6-35.5); MEAN CORPUSCULAR VOLUME 77.9 fL (81.4-99.0); MONOCYTES ABSOLUTE AUTO 0.68 K/uL (0.20-0.90); MONOCYTES PERCENT AUTO 6.9 % (3.3-12.6); NEUTROPHILS ABSOLUTE AUTO 5.24 K/uL (1.0-7.6); NEUTROPHILS PERCENT AUTO 53.4 % (40.0-78.1); PLATELET COUNT,PLT 206 K/uL (130-375); RED BLOOD CELL COUNT 4.48 M/uL (4.14-5.76); WHITE BLOOD CELL COUNT,WBC 9.8 K/uL (3.2-11.0)
[2023-10-27 05:52] LABS: AMORPHOUS SEDIMENT,URINE RARE; BACTERIA,URINE RARE; EPITHELIAL CELLS,URINE NOT SEEN; MUCUS,URINE NOT SEEN; RBC,URINE NOT SEEN (0-5); WBC,URINE 0-5 (0-5)
[2023-10-27 05:52] LABS: IMMATURE GRAN ABSOLUTE AUTO 0.01 K/uL (0.00-0.23)
[2023-10-27] MEDS: HYDROmorphone 1 MG/ML Syringe IM ONE (05:53)
[2023-10-27 06:12] LABS: A/G RATIO 1.2 (1.2-2.2); ALANINE AMINOTRANSFERASE,ALT 13 U/L (12-78); ALBUMIN 4.2 g/dL (3.4-5.0); ALKALINE PHOSPHATASE 87 U/L (46-116); ASPARTATE AMNIOTRANSFERASE,AST 16 U/L (15-37); BILIRUBIN TOTAL 0.7 mg/dL (0.2-1.0); BLOOD UREA NITROGEN,BUN 11 mg/dL (7-18); CARBON DIOXIDE,CO2 23 mmol/L (21-32); CHLORIDE,CL 91 mmol/L (100-108); CREATININE 0.9 mg/dL (0.8-1.3); EST CRCL DRUG DOSING (CG) 125.89 mL/min; ESTIMATED GFR 113 mL/min (>60); GLUCOSE RANDOM 94 mg/dL (74-106); PROTEIN TOTAL,TP 7.7 g/dL (6.4-8.2); SODIUM,NA 124 mmol/L (140-148)
== END 2023-10-27 07:30 | disposition home or self-care (01) ==
LOC: JP.ED 04:43
DX: R10.9 Unspecified abdominal pain (principal); Z88.5 Allergy status to narcotic agent; Z88.8 Allergy status to other drugs, medicaments and biological substances
CPT/HCPCS: 36415; 74176; 80053; 81001; 85025; 96372; 99283; 99284; J1170

== ENCOUNTER 2023-11-03 03:05 | Emergency (ER) | payer MEDICARE ==
[2023-11-03] MEDS: Ketorolac 30 MG/ML SDV IM ONE (03:40)
[2023-11-03 04:00] VITALS: BP 121/81; PULSE 64
== END 2023-11-03 03:58 | disposition home or self-care (01) ==
LOC: JP.ED 03:05
DX: R10.9 Unspecified abdominal pain (principal); M54.50 Low back pain, unspecified; Z79.899 Other long term (current) drug therapy; Z88.6 Allergy status to analgesic agent; Z88.5 Allergy status to narcotic agent
CPT/HCPCS: 96372; 99283; J1885

== ENCOUNTER 2023-11-06 07:06 | Emergency (ER) | payer MEDICARE ==
[2023-11-06 08:05] VITALS: BP 105/79; PULSE 76
[2023-11-06 08:17] LABS: BASOPHILS ABSOLUTE AUTO 0.09 K/uL (0.00-0.10); EOSINOPHILS ABSOLUTE AUTO 0.43 K/uL (0.00-0.40); EOSINOPHILS PERCENT AUTO 4.8 % (0.0-5.4); HEMATOCRIT 32.6 % (38.4-49.7); HEMOGLOBIN 11.9 g/dL (12.9-16.9); IMMATURE GRAN ABSOLUTE AUTO 0.03 K/uL (0.00-0.23); IMMATURE GRAN PERCENT AUTO 0.3 % (0.0-0.7); LYMPHOCYTES PERCENT AUTO 29.8 % (11.4-47.7); MEAN CORPUSCULAR HEMOGLOBIN 29.1 pg (31.6-35.5); MEAN CORPUSCULAR HGB CONC 36.5 g/dL (31.6-35.5); MEAN CORPUSCULAR VOLUME 79.7 fL (81.4-99.0); MONOCYTES ABSOLUTE AUTO 0.47 K/uL (0.20-0.90); MONOCYTES PERCENT AUTO 5.2 % (3.3-12.6); NEUTROPHILS ABSOLUTE AUTO 5.33 K/uL (1.0-7.6); NEUTROPHILS PERCENT AUTO 58.9 % (40.0-78.1); PLATELET COUNT,PLT 238 K/uL (130-375); RED BLOOD CELL COUNT 4.09 M/uL (4.14-5.76); WHITE BLOOD CELL COUNT,WBC 9.1 K/uL (3.2-11.0)
== END 2023-11-06 09:10 | disposition left against medical advice (07) ==
LOC: JP.ED 07:06
DX: R07.81 Pleurodynia (principal); Z88.5 Allergy status to narcotic agent; Z88.8 Allergy status to other drugs, medicaments and biological substances; Z79.899 Other long term (current) drug therapy
CPT/HCPCS: 36415; 85025; 99284

== ENCOUNTER 2023-12-18 18:31 | Emergency (ER) | payer MEDICARE ==
[2023-12-18 18:40] VITALS: PULSE 105
[2023-12-18] MEDS: Buprenorphine/Naloxone 8-2 MG Tab.SL SL ONE (21:23)
[2023-12-18 21:47] VITALS: BP 103/69
== END 2023-12-18 21:23 | disposition home or self-care (01) ==
LOC: JP.ED 18:31
DX: R93.2 Abnormal findings on diagnostic imaging of liver and biliary tract (principal); Z79.899 Other long term (current) drug therapy; Z88.8 Allergy status to other drugs, medicaments and biological substances; Z88.6 Allergy status to analgesic agent; Z88.5 Allergy status to narcotic agent
CPT/HCPCS: 99283; J0574; 99284

== ENCOUNTER 2024-05-15 08:17 | Day surgery (SDC) | payer MEDICARE ==
[2024-05-15] MEDS: Lactated Ringers 1,000 ML IV SCH (08:38)
[2024-05-15] MEDS ORDERED: fentaNYL 100 MCG/2 ML SDV ONE (10:25)
[2024-05-15] MEDS ORDERED: Propofol 200 MG/20 ML SDV ONE (10:25)
[2024-05-15] MEDS ORDERED: Midazolam 1 MG/ML 2 ML SDV ONE (10:25)
[2024-05-15] MEDS: Acetaminophen/HYDROcodone 325-5 MG Tab PO PRN (13:04)
[2024-05-15 13:38] VITALS: BP 114/79; PULSE 61
== END 2024-05-15 13:45 | disposition home or self-care (01) ==
LOC: JP.SDS 08:17
PROVIDERS: ATTEND Surgery
DX: D64.9 Anemia, unspecified (principal); K64.8 Other hemorrhoids; Z87.891 Personal history of nicotine dependence; Z88.5 Allergy status to narcotic agent; Z88.8 Allergy status to other drugs, medicaments and biological substances
CPT/HCPCS: 00813-QZ; 88305; A9270-GY; J2250; J2704; J3010; J7120

== ENCOUNTER 2024-05-16 06:19 | Day surgery (SDC) | payer MEDICARE ==
[2024-05-16 06:54] LABS: BASOPHILS PERCENT AUTO 0.9 % (0.1-1.3); EOSINOPHILS ABSOLUTE AUTO 0.61 K/uL (0.00-0.40); EOSINOPHILS PERCENT AUTO 5.2 % (0.0-5.4); HEMATOCRIT 40.4 % (38.4-49.7); HEMOGLOBIN 13.9 g/dL (12.9-16.9); IMMATURE GRAN ABSOLUTE AUTO 0.04 K/uL (0.00-0.23); IMMATURE GRAN PERCENT AUTO 0.3 % (0.0-0.7); LYMPHOCYTES ABSOLUTE AUTO 3.67 K/uL (0.8-3.3); LYMPHOCYTES PERCENT AUTO 31.2 % (11.4-47.7); MEAN CORPUSCULAR HEMOGLOBIN 29.7 pg (31.6-35.5); MEAN CORPUSCULAR HGB CONC 34.4 g/dL (31.6-35.5); MEAN CORPUSCULAR VOLUME 86.3 fL (81.4-99.0); MONOCYTES ABSOLUTE AUTO 0.63 K/uL (0.20-0.90); MONOCYTES PERCENT AUTO 5.4 % (3.3-12.6); NEUTROPHILS ABSOLUTE AUTO 6.71 K/uL (1.0-7.6); PLATELET COUNT,PLT 259 K/uL (130-375); RED BLOOD CELL COUNT 4.68 M/uL (4.14-5.76); WHITE BLOOD CELL COUNT,WBC 11.8 K/uL (3.2-11.0)
[2024-05-16] MEDS ORDERED: Propofol 200 MG/20 ML SDV ONE (06:56)
[2024-05-16] MEDS ORDERED: Dexamethasone 4 MG/ML SDV ONE (06:56)
[2024-05-16] MEDS ORDERED: Succinylcholine 200 MG/10 ML MDV ONE (06:56)
[2024-05-16] MEDS ORDERED: Glycopyrrolate 0.2 MG/ML 5 ML MDV ONE (06:56)
[2024-05-16] MEDS ORDERED: Ondansetron 4 MG/2 ML SDV ONE (06:56)
[2024-05-16] MEDS ORDERED: Rocuronium 50 MG/5 ML Vial ONE (06:56)
[2024-05-16] MEDS ORDERED: Neostigmine Methylsulfate 10 MG/10 ML MDV ONE (06:56)
[2024-05-16] MEDS ORDERED: fentaNYL 250 MCG/5 ML SDV ONE ×2 (06:57→07:58)
[2024-05-16 07:15] LABS: A/G RATIO 1.3 (1.2-2.2); ALANINE AMINOTRANSFERASE,ALT 17 U/L (12-78); ALBUMIN 4.5 g/dL (3.4-5.0); ALKALINE PHOSPHATASE 73 U/L (46-116); ASPARTATE AMNIOTRANSFERASE,AST 23 U/L (15-37); BILIRUBIN TOTAL 0.6 mg/dL (0.2-1.0); BLOOD UREA NITROGEN,BUN 13 mg/dL (7-18); CALCIUM 9.2 mg/dL (8.5-10.1); CARBON DIOXIDE,CO2 26 mmol/L (21-32); CHLORIDE,CL 102 mmol/L (100-108); CREATININE 0.9 mg/dL (0.8-1.3); EST CRCL DRUG DOSING (CG) 125.81 mL/min; ESTIMATED GFR 113 mL/min (>60); GLUCOSE RANDOM 83 mg/dL (74-106); POTASSIUM,K 3.9 mmol/L (3.6-5.2); PROTEIN TOTAL,TP 7.9 g/dL (6.4-8.2); SODIUM,NA 139 mmol/L (140-148)
[2024-05-16] MEDS: Indocyanine Green 25 MG SDV IV ONE (07:16)
[2024-05-16] MEDS: Lactated Ringers 1,000 ML IV SCH (07:17)
[2024-05-16 07:20] LABS: ANION GAP 14.9 mmol/L (5.0-14.0)
[2024-05-16] MEDS ORDERED: Sodium Chloride 0.9% 1,000 ML IV SCH (07:30)
[2024-05-16] MEDS: ceFAZolin 2 GM in Premix Bag 1 BAG IV ONE (07:30)
[2024-05-16] MEDS: metroNIDAZOLE/Normal Saline 500 MG in Premix Bag 1 BAG IV ONE (08:00)
[2024-05-16] MEDS: Lidocaine 1% 50 ML MDV ONE (08:20)
[2024-05-16] MEDS: Bupivacaine 0.5%/EPINEPHrine 1:200,000 50 ML MDV ONE (08:20)
[2024-05-16] MEDS ORDERED: Sugammadex Sodium 200 MG/2 ML VIAL IV ONE (08:28)
[2024-05-16] MEDS: hydrOXYzine HCL 100 MG/2 ML SDV IM ONE (09:02)
[2024-05-16] MEDS: Acetaminophen/HYDROcodone 325-5 MG Tab PO PRN (10:51)
[2024-05-16 12:13] VITALS: BP 128/87; PULSE 49
== END 2024-05-16 12:47 | disposition home or self-care (01) ==
LOC: JP.SDS 06:19
PROVIDERS: ATTEND Surgery
DX: K81.1 Chronic cholecystitis (principal); Z88.8 Allergy status to other drugs, medicaments and biological substances; Z79.899 Other long term (current) drug therapy; Z87.891 Personal history of nicotine dependence
CPT/HCPCS: 00790-QZ; 36415; 80053; 85025; 88304; A9270-GY; J0171; J0330; J0690; J1100; J1596; J1836; J2003; J2405; J2704; J2710; J2795; J3010; J3410; J3490; J7120

== ENCOUNTER 2024-05-18 11:42 | Emergency (ER) | payer MEDICARE ==
[2024-05-18 12:16] VITALS: BP 106/71; PULSE 79
[2024-05-18 12:25] LABS: BASOPHILS ABSOLUTE AUTO 0.07 K/uL (0.00-0.10); BASOPHILS PERCENT AUTO 0.5 % (0.1-1.3); EOSINOPHILS ABSOLUTE AUTO 0.29 K/uL (0.00-0.40); EOSINOPHILS PERCENT AUTO 2.1 % (0.0-5.4); HEMATOCRIT 36.2 % (38.4-49.7); HEMOGLOBIN 12.4 g/dL (12.9-16.9); IMMATURE GRAN ABSOLUTE AUTO 0.05 K/uL (0.00-0.23); IMMATURE GRAN PERCENT AUTO 0.4 % (0.0-0.7); LYMPHOCYTES ABSOLUTE AUTO 3.48 K/uL (0.8-3.3); LYMPHOCYTES PERCENT AUTO 24.9 % (11.4-47.7); MEAN CORPUSCULAR HEMOGLOBIN 29.8 pg (31.6-35.5); MEAN CORPUSCULAR HGB CONC 34.3 g/dL (31.6-35.5); MONOCYTES ABSOLUTE AUTO 0.68 K/uL (0.20-0.90); MONOCYTES PERCENT AUTO 4.9 % (3.3-12.6); NEUTROPHILS ABSOLUTE AUTO 9.41 K/uL (1.0-7.6); NEUTROPHILS PERCENT AUTO 67.2 % (40.0-78.1); PLATELET COUNT,PLT 202 K/uL (130-375); RED BLOOD CELL COUNT 4.16 M/uL (4.14-5.76)
[2024-05-18 12:44] LABS: A/G RATIO 1.5 (1.2-2.2); ALANINE AMINOTRANSFERASE,ALT 26 U/L (12-78); ALBUMIN 4.3 g/dL (3.4-5.0); ALKALINE PHOSPHATASE 63 U/L (46-116); ASPARTATE AMNIOTRANSFERASE,AST 34 U/L (15-37); BILIRUBIN TOTAL 0.6 mg/dL (0.2-1.0); BLOOD UREA NITROGEN,BUN 10 mg/dL (7-18); CALCIUM 9.2 mg/dL (8.5-10.1); CARBON DIOXIDE,CO2 26 mmol/L (21-32); CHLORIDE,CL 101 mmol/L (100-108); CREATININE 0.9 mg/dL (0.8-1.3); ESTIMATED GFR 113 mL/min (>60); GLUCOSE RANDOM 131 mg/dL (74-106); POTASSIUM,K 3.6 mmol/L (3.6-5.2); PROTEIN TOTAL,TP 7.2 g/dL (6.4-8.2); SODIUM,NA 138 mmol/L (140-148)
[2024-05-18 12:45] LABS: ANION GAP 14.6 mmol/L (5.0-14.0)
[2024-05-18] MEDS: HYDROmorphone 0.5 MG/0.5 ML Syringe IM ONE (12:48)
[2024-05-18] MEDS: Acetaminophen/HYDROcodone 325-5 MG Tab PO ONE (12:48)
== END 2024-05-18 13:32 | disposition home or self-care (01) ==
LOC: JP.ED 11:42
DX: G89.18 Other acute postprocedural pain (principal); Z88.8 Allergy status to other drugs, medicaments and biological substances; Z88.5 Allergy status to narcotic agent; Z79.899 Other long term (current) drug therapy
CPT/HCPCS: 36415; 80053; 83690; 85025; 96372; 99283; 99284; A9270-GY